=== PATIENT | female | born 1990 | race Two or more races ===

== ENCOUNTER 2020-12-18 06:10 | Emergency (ER) | payer MEDICAID, SELFPAY ==
--- NOTE | ~2020-12-18 | CT_ITS ---
EXAMINATION: CT ABDOMEN AND PELVIS WITHOUT CONTRAST CLINICAL INFORMATION: Left flank pain COMPARISON: None TECHNIQUE: Multidetector volumetric imaging was performed from the superior aspect of the liver through the pubic symphysis. Sagittal and coronal reformatted images were obtained on the technologist's workstation. This CT examination was performed using dose optimization techniques as appropriate, variously including the following: *Automated exposure control *Adjustment of mA and/or kV according to patient size (this includes techniques or standardized protocols for targeted exams where dose is matched to indication/reason for exam; i.e. extremities or head) *Use of iterative reconstruction technique DLP: 422 mGy-cm FINDINGS: LUNG BASES: There is a 3 mm left subpleural nodule axial image 3/5. LIVER, GALLBLADDER, AND BILIARY TREE: The liver is normal in size, shape, and attenuation. No focal hepatic lesion or biliary ductal dilatation is present. The gallbladder is unremarkable with no evidence of radiopaque gallstones, gallbladder wall thickening, or obvious pericholecystic inflammatory changes. PANCREAS: Unremarkable. SPLEEN: Unremarkable. ADRENAL GLANDS: Unremarkable. KIDNEYS AND URETERS: The kidneys are normal in size, shape, and attenuation. There are several radiopaque densities likely phleboliths in the left lower pelvis. A small distal ureteral stone is hard to exclude due to prominent vessels stool in left ovary in the vicinity. There is minimal prominence of the distal ureter but the left kidney pelvis is normal caliber. No radiopaque calculi seen in the kidneys. BLADDER: Unremarkable. GASTROINTESTINAL TRACT: There is scattered stool and gas seen throughout the colon without distention. The appendix is not well visualized. The small bowel loops are normal caliber. The stomach is nondistended. ABDOMINAL WALL: No significant hernia is appreciated. LYMPH NODES: Normal. VASCULAR: Unremarkable. PELVIC VISCERA: The uterus is bulky and retroverted. The ovaries are symmetrical. No free fluid seen. OSSEOUS STRUCTURES: Unremarkable. CT/CT abdomen pelvis wo con IMPRESSION: Mild constipation. At least 3 radiopaque densities seen in the left pelvis. These are likely phleboliths. A small left distal ureteral stone cannot be excluded. There is minimal prominence of left distal ureter. However there is no hydronephrosis. The exam is limited due to retroverted bulky uterus, mid ovaries prominent vessels and mild constipation. Bulky retroverted uterus.
[2020-12-18 06:16] VITALS: BP 102/65; PULSE 85; RESP 18; TEMP 36.6; O2SAT 100; BMI 23.5
--- NOTE | 2020-12-18 06:35 | PC.NURSE ---
PT TO ED WITH C/O LOWER ABD PAIN MONIQUE ON LEFT SIDE. PT CHG INTO GOWN. PT ARRIVES ALERT, RESPIRATIONS EASY, N/L. SKIN W/D. IN ROOM FOR EVAL. IV PLACED TO LAC, LABS DRAWN TO LAB.
--- NOTE | 2020-12-18 06:38 | ED.ABDPAIN ---
HPI - Abdominal Pain General Chief Complaint: Abdominal Pain Stated Complaint: ABD PAIN/BACK PAIN Time Seen by Provider: 12/18/20 06:31 Source: patient Mode of arrival: ambulatory Limitations: no limitations History of Present Illness HPI narrative: Patient comes to emergency room complaining of left flank pain radiating towards the abdomen. Patient states it started around 02:00, sudden in onset, sharp sensation, intermittent. Patient states sometimes the right abdominal and flank side hurt. The left side hurts the most. Patient complaining of occasional vomiting, no diarrhea. Patient states the last night she was doing well. Reports no fever or chills, no COVID like symptoms. Patient denies hematuria MD elicited complaint: flank pain Related Data Allergies Allergy/AdvReac Type Severity Reaction Status Date / Time shrimp [SHRIMP] Allergy Intermediate SWELLING Unverified 06/13/20 16:47 amoxicillin [AMOXICILLIN] Allergy Unknown HIVES Unverified 06/13/20 16:47 Penicillins [PENICILLINS] Allergy Unknown HIVES Unverified 06/13/20 16:47 Review of Systems Review of Systems Constitutional : No Weight loss, No Fever, No Chills, No Night Sweats, No Fatigue, No Malaise ENT/Mouth : No Hearing loss, No Ear Pain, No Nasal Congestion, No Sinus Pain, No Hoarseness, No sore throat, No Rhinorrhea, No Swallowing Difficulty Eyes: No Eye Pain, No Swelling, No Redness, No Foreign Body, No Discharge, No Vision Changes Cardiovascular : No Chest Pain, No SOB, No Dyspnea on Exertion, No Orthopnea, No Edema, No Palpitations Respiratory : No Cough, No Sputum, No Wheezing, No Smoke Exposure, No Dyspnea Gastrointestinal : Complaining of nausea and vomiting, No Diarrhea, No Constipation, complaining of left-sided flank pain radiating towards the left lower quadrant and left inguinal area, also complaining of mild to moderate right lower quadrant pain, but not as much as the left side. No Hematochezia, No Melena Genitourinary : no irregular bleeding, No Dysuria, No Urinary Frequency, No Hematuria, No Urinary Incontinence, No Urgency, No Flank Pain, No Urinary Flow Changes, No Hesitancy Musculoskeletal : No joint pain, No Myalgias, No Joint Swelling Skin : No Skin Lesions, No rash Neuro : No Weakness, No Numbness, No Paresthesias, No Loss of Consciousness, No Dizziness, No Headache Psych : No Anxiety/Panic, No Depression, No SI/HI/AH/VH, No Social Issues, Heme/Lymph: No Bruising, No Bleeding,No Lymphadenopathy Endocrine : No Polyuria, No Polydipsia, No Temperature Intolerance Physical Exam Vital Signs: Vital Signs: Last Vital Signs Temp 97.8 F 12/18/20 06:16 Pulse 85 12/18/20 06:16 Resp 18 12/18/20 06:16 BP 102/65 12/18/20 06:16 Pulse Ox 100 12/18/20 06:16 Body Mass Index 23.5 Appearance: Alert. Oriented X3. No acute distress. Eyes: Pupils equal, round and reactive to light. ENT: Pharynx normal. Neck: Normal inspection. Neck supple. No lymph nodes noted. No crepitus CVS: Normal heart rate and rhythm. Pulses normal. Normal S1 and S2 Respiratory: No respiratory distress. Breath sounds normal. No Wheezing. No rales Abdomen: Bilateral CVA tenderness, bilateral lower quadrant tenderness, worse in the left lower quadrant and left flank Skin: Skin warm and dry. Normal skin color. Normal skin turgor. Extremities: No lower extremity edema. No lower extremity edema. No Lacerations. No Rash Neuro: Oriented X 3. No motor deficit. No sensory deficit. Moving all extermities. No slurred speech. Course Course Course Narrative: Patient's labs pending, and CT scan. Sign-out given to Dr. Boo [facility] - Abdominal Pain Lab Data Result diagrams: 12/18/20 06:46 12/18/20 06:46 Labs: Lab Results 12/18/20 12/18/20 12/18/20 Range/Units 06:46 06:46 06:46 WBC 11.2 H (4.8-10.8) X10*3/uL RBC 3.87 L (4.20-5.50) X10*6/uL Hgb 11.8 L (12.0-16.0) g/dl Hct 35.7 L (37-47) % MCV 92.2 (80-98) fL MCH 30.5 (27.0-33.0) pg MCHC 33.1 (31.0-35.0) g/dl RDW 12.7 (11.0-16.0) % Plt Count 202 (160-400) X10*3/uL MPV 10.0 (9.4-12.3) fL Immature Gran % (Auto) 0.3 (0.0-0.4) % Neut % (Auto) 85.2 H (45-73) % Lymph % (Auto) 9.0 L (20-40) % [place] % (Auto) 5.3 (2-11) % Eos % (Auto) 0.1 (0-4) % Baso % (Auto) 0.1 (0-2) % Lymph # (Auto) 1.0 L (1.2-4.9) X10*3/uL [place] # (Auto) 0.6 (0.1-1.2) X10*3/uL Eos # (Auto) 0.0 (0.0-0.4) X10*3/uL Baso # (Auto) 0.0 (0.0-0.2) X10*3/uL Abs Immat Gran (auto) 0.03 (0.00-0.03) X10*3/uL Absolute Neuts (auto) 9.6 H (2.0-8.3) X10*3/uL Absolute Nucleated RBC 0.000 (0.0-0.012) X10*3/uL Nucleated RBC % (auto) 0.0 (0.0-0.2) /100WBC Sodium 138 (135-145) mmol/L Potassium 3.7 (3.3-5.1) mmol/L Chloride 104 (96-108) mmol/L Carbon Dioxide 23 (22-29) mmol/L Anion Gap 15 (12-20) BUN 21 H (9-16) mg/dL Creatinine 0.70 (0.5-1.4) mg/dL Estim Creat Clear Calc 103.3 Estimated GFR > 60 Random Glucose 121 H (60-115) mg/dL Calcium 9.1 (8.4-10.2) mg/dL Total Bilirubin 0.3 (0.0-1.0) mg/dL Direct Bilirubin 0.2 (0.0-0.5) mg/dL AST 15 (5-31) U/L ALT 10 (0-31) U/L Alkaline Phosphatase 58 (39-117) U/L Total Protein 7.1 (6.5-8.0) g/dL Albumin 4.4 (3.5-5.0) g/dL Lipase 27 (8-78) U/L Urine Color YELLOW Urine Appearance HAZY Urine pH 6.5 (5.0-8.0) Ur Specific [place] 1.020 (1.005-1.025) Urine Protein NEG (NEG-TRACE) MG/DL Urine Glucose (UA) NEG (NEG) MG/DL Urine Ketones 15 (NEG) MG/DL Urine Blood 2+ H (NEG) Urine Nitrite NEG (NEG) Ur Leukocyte Esterase NEG (NEG) Urine RBC 1-4 (0) /HPF Urine WBC 0-2 (0-4) /HPF Ur Squamous Epith Cells 1+ /LPF Urine Bacteria NONE /LPF Urine Mucus 1+ /LPF Urine Test (NEGATIVE) 12/18/20 Range/Units 06:46 WBC (4.8-10.8) X10*3/uL RBC (4.20-5.50) X10*6/uL Hgb (12.0-16.0) g/dl Hct (37-47) % MCV (80-98) fL MCH (27.0-33.0) pg MCHC (31.0-35.0) g/dl RDW (11.0-16.0) % Plt Count (160-400) X10*3/uL MPV (9.4-12.3) fL Immature Gran % (Auto) (0.0-0.4) % Neut % (Auto) (45-73) % Lymph % (Auto) (20-40) % [place] % (Auto) (2-11) % Eos % (Auto) (0-4) % Baso % (Auto) (0-2) % Lymph # (Auto) (1.2-4.9) X10*3/uL [place] # (Auto) (0.1-1.2) X10*3/uL Eos # (Auto) (0.0-0.4) X10*3/uL Baso # (Auto) (0.0-0.2) X10*3/uL Abs Immat Gran (auto) (0.00-0.03) X10*3/uL Absolute Neuts (auto) (2.0-8.3) X10*3/uL Absolute Nucleated RBC (0.0-0.012) X10*3/uL Nucleated RBC % (auto) (0.0-0.2) /100WBC Sodium (135-145) mmol/L Potassium (3.3-5.1) mmol/L Chloride (96-108) mmol/L Carbon Dioxide (22-29) mmol/L Anion Gap (12-20) BUN (9-16) mg/dL Creatinine (0.5-1.4) mg/dL Estim Creat Clear Calc Estimated GFR Random Glucose (60-115) mg/dL Calcium (8.4-10.2) mg/dL Total Bilirubin (0.0-1.0) mg/dL Direct Bilirubin (0.0-0.5) mg/dL AST (5-31) U/L ALT (0-31) U/L Alkaline Phosphatase (39-117) U/L Total Protein (6.5-8.0) g/dL Albumin (3.5-5.0) g/dL Lipase (8-78) U/L Urine Color Urine Appearance Urine pH (5.0-8.0) Ur Specific [place] (1.005-1.025) Urine Protein (NEG-TRACE) MG/DL Urine Glucose (UA) (NEG) MG/DL Urine Ketones (NEG) MG/DL Urine Blood (NEG) Urine Nitrite (NEG) Ur Leukocyte Esterase (NEG) Urine RBC (0) /HPF Urine WBC (0-4) /HPF Ur Squamous Epith Cells /LPF Urine Bacteria /LPF Urine Mucus /LPF Urine Test NEGATIVE (NEGATIVE) [facility] Social History Social History Advance Directives: No Advance Directives Information Provided: No
[2020-12-18] MEDS: ondansetron HCL 4 MG/2 ML VIAL IVPUSH (06:41)
[2020-12-18] MEDS: Ketorolac Tromethamine 30 MG/ML VIAL IVPUSH (06:41)
[2020-12-18] MEDS: 0.9 % Sodium Chloride 1,000 ML 999 ML IVCONT (06:43)
--- NOTE | 2020-12-18 06:44 | PC.NURSE ---
PT RATING LOWER ABD PAIN 10/10. PT MEDICATED PER EMAR FOR PAIN AND NAUSEA.
--- NOTE | 2020-12-18 06:49 | PC.NURSE ---
PT UP TO RESTROOM FOR URINE SAMPLE.
[2020-12-18 06:51] LABS: MANUAL DIFF FLAG NO
[2020-12-18 06:53] LABS: Basophils Percent Auto 0.1 % (0-2); Eosinophils Percent Auto 0.1 % (0-4); Hematocrit 35.7 % (37-47); Hemoglobin 11.8 g/dl (12.0-16.0); Imm Gran Abs Auto 0.03 X10*3/uL (0.00-0.03); Imm Gran Pct Auto 0.3 % (0.0-0.4); Mean Corpuscular HGB Conc 33.1 g/dl (31.0-35.0); Mean Corpuscular Hemoglobin 30.5 pg (27.0-33.0); Mean Corpuscular Volume 92.2 fL (80-98); Monocytes Absolute Auto 0.6 X10*3/uL (0.1-1.2); Monocytes Percent Auto 5.3 % (2-11); Neutrophils Absolute Auto 9.6 X10*3/uL (2.0-8.3); Neutrophils Percent Auto 85.2 % (45-73); Platelet Count 202 X10*3/uL (160-400); Red Blood Count 3.87 X10*6/uL (4.20-5.50); Red Cell Distribution Width 12.7 % (11.0-16.0); White Blood Count 11.2 X10*3/uL (4.8-10.8)
[2020-12-18 07:06] LABS: Glucose Urine UA NEG (NEG); Leukocyte Esterase Urine NEG (NEG); Nitrite Urine NEG (NEG); PH 6.5 (5.0-8.0); Urine Blood 2+ (NEG); Urine Ketones 15 MG/DL (NEG); Urine Protein NEG (NEG-TRACE)
[2020-12-18 07:09] LABS: Color Urine YELLOW; UPreg QC Valid YES; Urine Pregnancy NEGATIVE (NEGATIVE)
[2020-12-18 07:10] LABS: Appearance Urine HAZY
[2020-12-18 07:14] LABS: Mucus Urine 1+ /LPF; Squamous Epithelial Cell Urine 1+ /LPF; WBC Urine 0-2 /HPF (0-4)
[2020-12-18 07:18] LABS: Alanine Aminotransferase 10 U/L (0-31); Albumin Level 4.4 g/dL (3.5-5.0); Alkaline Phosphatase 58 U/L (39-117); Anion Gap 15 (12-20); Aspartate Amino Transferase 15 U/L (5-31); Bilirubin Direct 0.2 mg/dL (0.0-0.5); Bilirubin Total 0.3 mg/dL (0.0-1.0); Blood Urea Nitrogen 21 mg/dL (9-16); Calcium 9.1 mg/dL (8.4-10.2); Carbon Dioxide 23 mmol/L (22-29); Chloride 104 mmol/L (96-108); Creatinine Clr Calc Pharmacy 103.3; Estimated Glomerular Filt Rate > 60; Glucose Random 121 mg/dL (60-115); Lipase 27 U/L (8-78); Potassium 3.7 mmol/L (3.3-5.1); Sodium 138 mmol/L (135-145); Total Protein 7.1 g/dL (6.5-8.0)
[2020-12-18] MEDS: Ibuprofen 400 MG TABLET PO (09:42)
[2020-12-18 10:12] VITALS: BP 112/69; PULSE 77; RESP 18; TEMP 36.6; O2SAT 98
== END 2020-12-18 10:16 | disposition home or self-care (01) ==
PROVIDERS: Emergency Provider Emergency Medicine
DX: R10.9 Unspecified abdominal pain (principal); M54.5 Low back pain
CPT/HCPCS: 36415; 74176; 80048; 80076; 81001; 81003; 81025; 83690; 85025; 96365; 96375; 99283; 99284; J1885; J2405

== ENCOUNTER 2020-12-19 21:12 | Emergency (ER) | payer MEDICAID, SELFPAY ==
--- NOTE | ~2020-12-19 | CT_ITS ---
EXAMINATION: CT ABDOMEN AND PELVIS WITH CONTRAST CLINICAL INFORMATION: Right lower quadrant pain. Yesterday's CT exam was performed for left-sided flank pain COMPARISON: CT abdomen pelvis yesterday TECHNIQUE: Multidetector volumetric images were obtained from the superior aspect of the liver through the pubic symphysis following administration of 75 mL of Omnipaque 350 intravenous contrast. Sagittal and coronal reformatted images were obtained on the technologist's workstation. Oral contrast: No This CT examination was performed using dose optimization techniques as appropriate, variously including the following: *Automated exposure control *Adjustment of mA and/or kV according to patient size (this includes techniques or standardized protocols for targeted exams where dose is matched to indication/reason for exam; i.e. extremities or head) *Use of iterative reconstruction technique DLP: 409 mGy-cm FINDINGS: LUNG BASES: The visualized lung bases are unremarkable. Again seen is a tiny 3 mm left lower lobe subpleural nodule (4:55). LIVER, GALLBLADDER, AND BILIARY TREE: The liver is normal in size, shape, and attenuation. No focal hepatic lesion or biliary ductal dilatation is present. The gallbladder is unremarkable with no evidence of radiopaque gallstones, gallbladder wall thickening, or obvious pericholecystic inflammatory changes. PANCREAS: Unremarkable. SPLEEN: Unremarkable. ADRENAL GLANDS: Unremarkable. KIDNEYS AND URETERS: The kidneys are normal in size, shape, and attenuation. No hydronephrosis, hydroureter, or calculi seen. No perinephric stranding. BLADDER: Unremarkable. GASTROINTESTINAL TRACT: The small and large bowel are unremarkable. The appendix is unremarkable. ABDOMINAL WALL: No significant hernia is appreciated. LYMPH NODES: No retroperitoneal lymphadenopathy is detected VASCULAR: Unremarkable. PELVIC VISCERA: Phleboliths are noted in the pelvis. Retroverted uterus is present. An abnormal adnexal mass or free intraperitoneal fluid is not seen. OSSEOUS STRUCTURES: Unremarkable. CT/CT abdomen pelvis w con IMPRESSION: 1. A cause for the right lower quadrant pain is not found. The appendix is normal. No renal calculi are seen. 2. A cause for his yesterday's left flank pain is not seen. I do not believe that the calcifications in the pelvis are distal ureteral stones.
[2020-12-19 22:38] VITALS: BP 133/95; PULSE 70; RESP 16; TEMP 36.9; O2SAT 99; BMI 41.1
--- NOTE | 2020-12-19 22:44 | ED.ABDPAIN ---
HPI - Abdominal Pain General Chief Complaint: Abdominal Pain Stated Complaint: Abdominal pain Time Seen by Provider: 12/19/20 22:43 Source: patient Mode of arrival: ambulatory Limitations: no limitations History of Present Illness HPI narrative: Patient no significant past medical history was seen here yesterday for diffuse abdominal pain which started 24 hours prior to arrival patient woke up at 02:00 with mid abdominal pain with nausea was seen here CT scan was done without contrast which showed possible passed stone unable to see appendix white count were slightly elevated patient went home all day patient was complaining of pain which is getting worse now is more localized in the lower abdomen specially the right side associated with nausea and poor appetite pain get worse when she walks or eat something or stands Related Data Allergies Allergy/AdvReac Type Severity Reaction Status Date / Time shrimp [SHRIMP] Allergy Intermediate SWELLING Unverified 06/13/20 16:47 amoxicillin [AMOXICILLIN] Allergy Unknown HIVES Unverified 06/13/20 16:47 Penicillins [PENICILLINS] Allergy Unknown HIVES Unverified 06/13/20 16:47 Review of Systems Review of Systems Constitutional : No Weight loss, No Fever, No Chills ENT/Mouth : No sore throat, No Rhinorrhea Eyes: No Eye Pain, No Swelling Cardiovascular : No Chest Pain, no palpitations Respiratory : No Cough, No Sputum, no shortness of breath Gastrointestinal : +Nausea, + Vomiting, No Diarrhea, + abdominal Pain, no black stools Genitourinary : No Dysuria, No Urinary Frequency Musculoskeletal : No joint pain, No Myalgias, No Joint Swelling Skin : No Skin Lesions, No rash Neuro : No Weakness, No Numbness, No Dizziness, No Headache Psych : No Anxiety/Panic, No Depression Heme/Lymph: No Bruising, No Lymphadenopathy Endocrine : No Polyuria, No Polydipsia All other systems reviewed and are negative Physical Exam Vital Signs: Vital Signs: Last Vital Signs Temp 98.4 F 12/19/20 22:38 Pulse 70 12/19/20 22:38 Resp 18 12/19/20 23:29 BP 133/95 H 12/19/20 22:38 Pulse Ox 99 12/19/20 22:38 Body Mass Index 41.1 Appearance: Alert. Oriented X3. Mild distress. Eyes: Pupils equal, round and reactive to light. ENT: Pharynx normal. Neck: Normal inspection. Neck supple. CVS: Normal heart rate and rhythm. Pulses normal. Respiratory: No respiratory distress. Breath sounds normal. Abdomen: Soft deep tenderness and guarding right lower quadrant no rebound tenderness Bowel sounds are present, no mass palpable, no CVA tenderness Skin: Skin warm and dry. Normal skin color. Normal skin turgor. Extremities: No lower extremity edema. Neuro: Oriented X 3. No motor deficit. No sensory deficit. MDM - Abdominal Pain MDM Narrative Medical decision making narrative: Patient with lower abdominal pain previous CT scan was negative will do CT scan with IV contrast to rule out appendicitis 1am: Patient's CT abdomen is negative for any acute pathology negative for appendicitis no ureteric stone, lab stable patient feeling better now will discharge her home Differential Diagnosis Differential diagnosis: Likely acute appendicitis and calculus of kidney Medical Records Attestation: I reviewed the patient's medical records. Lab Data Attestation: I reviewed the patient's lab results. Result diagrams: 12/19/20 23:01 12/19/20 23:01 Labs: Lab Results 12/19/20 12/19/20 12/19/20 Range/Units 22:57 23:01 23:01 WBC 6.3 (4.8-10.8) X10*3/uL RBC 3.58 L (4.20-5.50) X10*6/uL Hgb 10.9 L (12.0-16.0) g/dl Hct 33.2 L (37-47) % MCV 92.7 (80-98) fL MCH 30.4 (27.0-33.0) pg MCHC 32.8 (31.0-35.0) g/dl RDW 12.9 (11.0-16.0) % Plt Count 201 (160-400) X10*3/uL MPV 10.1 (9.4-12.3) fL Immature Gran % (Auto) 0.2 (0.0-0.4) % Neut % (Auto) 55.6 (45-73) % Lymph % (Auto) 37.6 (20-40) % [place] % (Auto) 5.7 (2-11) % Eos % (Auto) 0.6 (0-4) % Baso % (Auto) 0.3 (0-2) % Lymph # (Auto) 2.4 (1.2-4.9) X10*3/uL [place] # (Auto) 0.4 (0.1-1.2) X10*3/uL Eos # (Auto) 0.0 (0.0-0.4) X10*3/uL Baso # (Auto) 0.0 (0.0-0.2) X10*3/uL Abs Immat Gran (auto) 0.01 (0.00-0.03) X10*3/uL Absolute Neuts (auto) 3.5 (2.0-8.3) X10*3/uL Absolute Nucleated RBC 0.000 (0.0-0.012) X10*3/uL Nucleated RBC % (auto) 0.0 (0.0-0.2) /100WBC PT (10.8-13.0) SEC INR (0.9-1.1) Sodium 141 (135-145) mmol/L Potassium 3.9 (3.3-5.1) mmol/L Chloride 106 (96-108) mmol/L Carbon Dioxide 24 (22-29) mmol/L Anion Gap 15 (12-20) BUN 16 (9-16) mg/dL Creatinine 0.73 (0.5-1.4) mg/dL Estim Creat Clear Calc 63.8 Estimated GFR > 60 Random Glucose 88 (60-115) mg/dL Calcium 8.8 (8.4-10.2) mg/dL COVID-19 (LINDA) Negative (Negative) COVID-19 Clin Com See Note 12/19/20 Range/Units 23:01 WBC (4.8-10.8) X10*3/uL RBC (4.20-5.50) X10*6/uL Hgb (12.0-16.0) g/dl Hct (37-47) % MCV (80-98) fL MCH (27.0-33.0) pg MCHC (31.0-35.0) g/dl RDW (11.0-16.0) % Plt Count (160-400) X10*3/uL MPV (9.4-12.3) fL Immature Gran % (Auto) (0.0-0.4) % Neut % (Auto) (45-73) % Lymph % (Auto) (20-40) % [place] % (Auto) (2-11) % Eos % (Auto) (0-4) % Baso % (Auto) (0-2) % Lymph # (Auto) (1.2-4.9) X10*3/uL [place] # (Auto) (0.1-1.2) X10*3/uL Eos # (Auto) (0.0-0.4) X10*3/uL Baso # (Auto) (0.0-0.2) X10*3/uL Abs Immat Gran (auto) (0.00-0.03) X10*3/uL Absolute Neuts (auto) (2.0-8.3) X10*3/uL Absolute Nucleated RBC (0.0-0.012) X10*3/uL Nucleated RBC % (auto) (0.0-0.2) /100WBC PT 12.7 (10.8-13.0) SEC INR 1.1 (0.9-1.1) Sodium (135-145) mmol/L Potassium (3.3-5.1) mmol/L Chloride (96-108) mmol/L Carbon Dioxide (22-29) mmol/L Anion Gap (12-20) BUN (9-16) mg/dL Creatinine (0.5-1.4) mg/dL Estim Creat Clear Calc Estimated GFR Random Glucose (60-115) mg/dL Calcium (8.4-10.2) mg/dL COVID-19 (LINDA) (Negative) COVID-19 Clin Com [facility] Social History Social History Alcohol intake: never Smoking Status: Current every day smoker Use of substances other than those prescribed or required for medical reasons: No Advance Directives: No Advance Directives Information Provided: Yes
[2020-12-19 23:10] LABS: MANUAL DIFF FLAG NO
[2020-12-19 23:11] LABS: Basophils Percent Auto 0.3 % (0-2); Eosinophils Percent Auto 0.6 % (0-4); Hematocrit 33.2 % (37-47); Hemoglobin 10.9 g/dl (12.0-16.0); Imm Gran Abs Auto 0.01 X10*3/uL (0.00-0.03); Imm Gran Pct Auto 0.2 % (0.0-0.4); Lymphocytes Absolute Auto 2.4 X10*3/uL (1.2-4.9); Lymphocytes Percent Auto 37.6 % (20-40); Mean Corpuscular HGB Conc 32.8 g/dl (31.0-35.0); Mean Corpuscular Hemoglobin 30.4 pg (27.0-33.0); Mean Corpuscular Volume 92.7 fL (80-98); Mean Platelet Volume 10.1 fL (9.4-12.3); Monocytes Absolute Auto 0.4 X10*3/uL (0.1-1.2); Monocytes Percent Auto 5.7 % (2-11); Neutrophils Absolute Auto 3.5 X10*3/uL (2.0-8.3); Neutrophils Percent Auto 55.6 % (45-73); Platelet Count 201 X10*3/uL (160-400); Red Blood Count 3.58 X10*6/uL (4.20-5.50); Red Cell Distribution Width 12.9 % (11.0-16.0); White Blood Count 6.3 X10*3/uL (4.8-10.8)
[2020-12-19 23:28] LABS: COVID-19 Test Negative (Negative); IDNOW Serial# 9DD0AD1C
[2020-12-19] MEDS: ondansetron HCL 4 MG/2 ML VIAL IVPUSH (23:28)
[2020-12-19 23:29] VITALS: RESP 18
[2020-12-19] MEDS: 0.9 % Sodium Chloride 1,000 ML 999 ML IVCONT (23:29)
[2020-12-19] MEDS: Morphine Sulfate 4 MG/ML CARTRIDGE IVPUSH (23:29)
[2020-12-19 23:39] LABS: Anion Gap 15 (12-20); Blood Urea Nitrogen 16 mg/dL (9-16); Calcium 8.8 mg/dL (8.4-10.2); Carbon Dioxide 24 mmol/L (22-29); Chloride 106 mmol/L (96-108); Creatinine Clr Calc Pharmacy 63.8; Estimated Glomerular Filt Rate > 60; Glucose Random 88 mg/dL (60-115); Potassium 3.9 mmol/L (3.3-5.1); Sodium 141 mmol/L (135-145)
[2020-12-19 23:45] LABS: INTERNATIONAL NORM RATIO 1.1 (0.9-1.1); Prothrombin Time 12.7 SEC (10.8-13.0)
[2020-12-19] MEDS: iohexoL 350 MG/ML 75 ML INFUS..BTL IV (23:51)
[2020-12-20] VITALS: BP 109/62; PULSE 76; RESP 16; O2SAT 98
== END 2020-12-20 01:55 | disposition home or self-care (01) ==
PROVIDERS: Emergency Provider Internal Medicine; PCP Nurse Practitioner Family
DX: R10.31 Right lower quadrant pain (principal); Z20.822 Contact with and (suspected) exposure to COVID-19; R11.2 Nausea with vomiting, unspecified; F17.200 Nicotine dependence, unspecified, uncomplicated
CPT/HCPCS: 36415; 74177; 80048; 85025; 85610; 87635; 96361; 96374; 96375; 99284; J2270; J2405; Q9967

== ENCOUNTER 2021-03-11 21:18 | Emergency (ER) | payer MEDICAID, SELFPAY | END 2021-03-11 21:45 | disposition left against medical advice (07) | LOC: HO.ED 21:44 | PROVIDERS: Emergency Provider Internal Medicine | DX: Z20.822 Contact with and (suspected) exposure to COVID-19 (principal) ==

== ENCOUNTER 2021-03-12 15:49 | Outpatient (REF) | payer MEDICAID, SELFPAY | END 2021-03-12 15:50 | disposition home or self-care (01) | LOC: HO.LAB 15:49 | PROVIDERS: Visit Provider Internal Medicine | DX: Z20.822 Contact with and (suspected) exposure to COVID-19 (principal) | CPT/HCPCS: C9803; U0003; U0005 ==

== ENCOUNTER 2021-06-20 14:15 | Outpatient (REF) | payer MEDICAID, SELFPAY | END 2021-06-20 14:16 | disposition home or self-care (01) | LOC: HO.LAB 14:15 | PROVIDERS: Visit Provider Internal Medicine | DX: Z20.822 Contact with and (suspected) exposure to COVID-19 (principal) | CPT/HCPCS: C9803; U0003; U0005 ==

== ENCOUNTER 2022-04-07 10:50 | Outpatient (REF) | payer MEDICAID, SELFPAY | END 2022-04-07 10:51 | disposition home or self-care (01) | LOC: HO.HOSX 10:50 | PROVIDERS: Visit Provider Orthopaedic Surgery | DX: Z13.89 Encounter for screening for other disorder (principal) ==

== ENCOUNTER 2022-08-17 17:31 | Emergency (ER) | payer MEDICAID, SELFPAY ==
--- NOTE | ~2022-08-17 | XR_ITS ---
EXAMINATION: XR CHEST CLINICAL INFORMATION: Weakness. COMPARISON: None TECHNIQUE: 2 views of the chest were obtained. FINDINGS: No significant abnormality is noted involving the heart, lungs, mediastinum, bony thorax or soft tissues. XR/XR chest 2V IMPRESSION: Unremarkable chest examination.
[2022-08-17 17:37] VITALS: BP 114/71; PULSE 98; RESP 18; TEMP 36.7; O2SAT 100; BMI 21.2
--- NOTE | 2022-08-17 17:38 | ECG_ITS ---
Test Reason : dizziness Blood Pressure : / mmHG Vent. Rate : 075 BPM Atrial Rate : 075 BPM P-R Int : 158 ms QRS Dur : 106 ms QT Int : 380 ms P-R-T Axes : 052 039 028 degrees QTc Int : 424 ms Normal sinus rhythm Incomplete right bundle branch block Borderline ECG When compared with ECG of 28-JAN-2019 12:19, No significant change was found Referred By: Varun Ortiz Electronically Signed By:TOBY PUENTE MD
--- NOTE | 2022-08-17 17:41 | ED_ITS ---
HPI - Dizziness General Chief Complaint: General Medical <Varun Ortiz DO - Last Filed: 08/17/22 17:46> Stated Complaint: dizzines,blurred vision,chest and arm pain <Varun Ortiz DO - Last Filed: 08/17/22 17:46> Time Seen by Provider: 08/17/22 18:05 <Varun Ortiz DO - Last Filed: 08/17/22 17:46> Source: patient <ROSEMARIE Troncoso - Last Filed: 08/17/22 21:02> Mode of arrival: ambulatory <ROSEMARIE Troncoso - Last Filed: 08/17/22 21:02> Limitations: no limitations <ROSMEARIE Troncoso Last Filed: 08/17/22 21:02> History of Present Illness HPI Narrative: 31 yo female presents to the ER for evaluation of multiple complaints today. She reports for the last 3 weeks she has had recurrence and worsening episodes of lightheadedness and dizziness that occur happen at random times. She also reports intermittent episodes of chest pain, shortness of breath, palpitations, abdominal pain, nausea. She states she intermittently has numbness and pain in her hands and her legs. The pain in her legs has caused her to have to quit to a for jobs in the last year. She was worked up for lupus by her PCP and it was negative. She states the lightheadedness has become more frequent. She denies any dizziness or vertigo. It is not worse with position changes. She has been eating and drinking normally. She is not diabetic. She does admit to history of anxiety and has been taking her neighbors anxiety medications with some relief. <ROSEMARIE Troncoso - Last Filed: 08/17/22 21:02> MD elicited complaint: dizziness <ROSEMARIE Troncoso Last Filed: 08/17/22 21:02> Onset (ago): week(s) <ROSEMARIE Troncoso Last Filed: 08/17/22 21:02> Timing: gradual onset <ROSEMARIE Troncoso Last Filed: 08/17/22 21:02> Severity: moderate <ROSEMARIE Troncoso Last Filed: 08/17/22 21:02> Description: lightheadedness <ROSEMARIE Troncoso Last Filed: 08/17/22 21:02> Context: anxiety <ROSEMARIE Troncoso Last Filed: 08/17/22 21:02> History of similar symptoms: Yes <ROSEMARIE Troncoso Last Filed: 08/17/22 21:02> Exacerbating factors: nothing <ROSEMARIE Troncoso Last Filed: 08/17/22 21:02> Relieving factors: nothing <ROSEMARIE Troncoso Last Filed: 08/17/22 21:02> Associated symptoms: nausea, chest pain, shortness of breath, weakness and palpatations <ROSEMARIE Troncoso Last Filed: 08/17/22 21:02> Associated neuro symptoms: limb numbness <ROSEMARIE Troncoso Last Filed: 08/17/22 21:02> Related Data Home Medications: Previous Rx's Medication Instructions Recorded clindamycin HCl 300 mg capsule 300 mg PO Q6H 1 week #28 caps 08/17/22 ibuprofen 600 mg tablet 600 mg PO Q8H PRN fever or pain 08/17/22 #20 tabs <Varun Ortiz DO - Last Filed: 08/17/22 17:46> Allergies/Adverse Reactions: Allergies Allergy/AdvReac Type Severity Reaction Status Date / Time shrimp [SHRIMP] Allergy Intermediate SWELLING Unverified 06/13/20 16:47 amoxicillin [AMOXICILLIN] Allergy Unknown HIVES Unverified 06/13/20 16:47 Penicillins [PENICILLINS] Allergy Unknown HIVES Unverified 06/13/20 16:47 <Varun Ortiz DO - Last Filed: 08/17/22 17:46> Review of Systems Review of Systems: Constitutional: No Fever, No Chills ENT/Mouth: No sore throat, No Rhinorrhea, No Swallowing Difficulty Eyes: No Eye Pain, No Swelling, No Redness Cardiovascular: + Chest Pain, + SOB, No Orthopnea, No Edema Respiratory: No Cough, No Sputum, No Wheezing, No dyspnea Gastrointestinal: + Nausea, No Vomiting, No Diarrhea, +abdominal Pain, No Hematochezia, No Melena Genitourinary: No Dysuria, No Urinary Frequency, No Hematuria Musculoskeletal: No joint pain, No Myalgias Skin: No Skin Lesions, No rash Neuro: +Weakness, +Numbness, + Dizziness, +Headache Psych: + Anxiety/Panic, No Depression Heme/Lymph: No Bruising, No Lymphadenopathy Endocrine: No Polyuria, No Polydipsia <ROSEMARIE Troncoso - Last Filed: 08/17/22 21:02> [facility] Social History Social History: Social History Alcohol intake: never Advance Directives: No Advance Directives Information Provided: Yes <Varun Ortiz DO - Last Filed: 08/17/22 17:46> Physical Exam Vital Signs: Vital Signs: Last Vital Signs Temp 98.2 F 08/17/22 20:00 Pulse 69 08/17/22 20:00 Resp 16 08/17/22 20:00 BP 98/65 08/17/22 20:00 Pulse Ox 98 08/17/22 20:00 O2 Del Method 08/17/22 20:00 BMI result Body Mass Index 21.2 <Varun Ortiz DO - Last Filed: 08/17/22 17:46> Vital Signs: Last Vital Signs Temp 98.2 F 08/17/22 20:00 Pulse 69 08/17/22 20:00 Resp 16 08/17/22 20:00 BP 98/65 08/17/22 20:00 Pulse Ox 98 08/17/22 20:00 O2 Del Method 08/17/22 20:00 BMI result Body Mass Index 21.2 <ROSEMARIE Troncoso - Last Filed: 08/17/22 21:02> Appearance: Alert. Oriented X3. No acute distress. Eyes: Pupils equal, round and reactive to light. EOMI, no nystagmus. ENT: Pharynx normal. Neck: Normal inspection. Neck supple. CVS: Normal heart rate and rhythm. Pulses normal. Respiratory: No respiratory distress. Breath sounds normal. Abdomen: Flat, Soft and nontender. +BS x4. Pelvic deferred Skin: Skin warm and dry. Normal skin color. Normal skin turgor. No rashes. Extremities: No lower extremity edema. Neuro: Oriented X 3. No motor deficit. No sensory deficit. CN II-XII intact. Normal speech and cognition. Steady gait. Equal and symmetrical strength throughout. <ROSEMARIE Troncoso - Last Filed: 08/17/22 21:02> Course Course Course Narrative: 31 year old female presents to the ED with multiple complaints Patient seen in triage by me in a rapid screening exam she states for months she has had dizziness. She denies any falls denies chest pain cough fever no nausea or vomiting. She states she has seen her PCP and told everything is okay. She also has chronic pain issues and is unable to work due to pain in fingers. Review of systems: General:? Dizziness none right now Patient denies any fever chills recent illness or falls Musculoskeletal: Denies back pain or body aches or other injuries HEENT: denies headache, runny nose, ear pain Respiratory: denies shortness of breath, cough Cardiovascular: no chest pain or palpitations : denies dysuria, frequency Abdomen: nausea no vomiting denies abdominal pain Extremities: no swelling, no pain Skin: no diaphoresis? Review of Systems: Yes all other systems are reviewed and are negative Neurological exam: CN II- XII tested. Patient is alert and oriented to person place and time. Patient has no dysphagia or dysarthia, denies good vision in all four vision huerta no nystagmus on exam, good strength to upper and lower extremities with normal reflexes to brachioradialis, wrist, patella and achilles. Negative romberg, good finger to nose and heel to caldera.? General: Well-appearing well-nourished in no signs of distress HEENT: Normocephalic atraumatic Neck: No signs of JVD, no masses no tenderness or lymphadenopathy Cardiovascular: Regular rate and rhythm Respiratory: Clear to auscultation bilaterally Abdomen: Soft nontender no masses Extremities: Normal pedal pulses no signs of edema Skin: Dry warm no rashes Back: No tenderness full ROM? Patient seen in triage orders sent patient will have another provider give diagnosis interpret labs and ultimate disposition. <Varun Ortiz DO - Last Filed: 08/17/22 17:46> Reevaluation(s) Reevaluation #1: Lab workup was unremarkable. EKG unremarkable. Perc negative. Doubt PE. Treated with Ativan with improvement. No lightheadedness while in the emergency department. Symptoms most likely anxiety related. Will have her follow-up with her PCP. Advised to not take prescription medications that are not prescribed to her. She is asking for antibiotic for broken to ooze, left lower posterior molar. Area is tender with associated gingival swelling but no fluctuance. Will prescribe Augmentin and Motrin for pain control. She agrees to follow-up with the dentist. Stable for discharge. <ROSEMARIE Troncoso - Last Filed: 08/17/22 21:02> Medications Administered Discontinued Medications Generic Name Dose Route Start Last Admin Trade Name Freq PRN Reason Stop Dose Admin Lactated Ringer's 1,000 mls @ 999 mls/hr 08/17/22 18:30 08/17/22 20:52 Lr IV 08/17/22 19:30 Infused .Q1H1M WILLIAM Infusion Lorazepam 1 mg 08/17/22 18:08 08/17/22 18:46 Lorazepam 1 Mg Tablet PO 08/17/22 18:09 1 mg ONCE ONE Administration Ondansetron HCl 4 mg 08/17/22 18:25 08/17/22 18:46 Ondansetron Hcl 4 Mg/2 Ml Vial IVPUSH 08/17/22 18:26 4 mg ONCE ONE Administration <Varun Ortiz DO - Last Filed: 08/17/22 17:46> Medications Administered Discontinued Medications Generic Name Dose Route Start Last Admin Trade Name Freq PRN Reason Stop Dose Admin Lactated Ringer's 1,000 mls @ 999 mls/hr 08/17/22 18:30 08/17/22 20:52 Lr IV 08/17/22 19:30 Infused .Q1H1M WILLIAM Infusion Lorazepam 1 mg 08/17/22 18:08 08/17/22 18:46 Lorazepam 1 Mg Tablet PO 08/17/22 18:09 1 mg ONCE ONE Administration Ondansetron HCl 4 mg 08/17/22 18:25 08/17/22 18:46 Ondansetron Hcl 4 Mg/2 Ml Vial IVPUSH 08/17/22 18:26 4 mg ONCE ONE Administration <ROSEMARIE Troncoso - Last Filed: 08/17/22 21:02> MDM - Dizziness Medical Records Attestation: I reviewed the patient's medical records. <ROSEMARIE Troncoso - Last Filed: 08/17/22 21:02> Lab Data Attestation: I reviewed the patient's lab results. <ROESMARIE Troncoso - Last Filed: 08/17/22 21:02> Result diagrams: : 08/17/22 18:36 08/17/22 18:36 <Varun Ortiz, DO - Last Filed: 08/17/22 17:46> Labs: Lab Results 08/17/22 08/17/22 08/17/22 Range/Units 18:36 18:36 18:36 WBC 5.6 (4.8-10.8) X10*3/uL RBC 4.02 L (4.20-5.50) X10*6/uL Hgb 12.1 (12.0-16.0) g/dl Hct 36.9 L (37.0-47.0) % MCV 91.8 (80.0-98.0) fL MCH 30.1 (27.0-33.0) pg MCHC 32.8 (31.0-35.0) g/dl RDW 12.7 (11.0-16.0) % Plt Count 231 (160-400) X10*3/uL MPV 9.9 (9.4-12.3) fL Immature Gran % (Auto) 0.2 (0.0-0.4) % Neut % (Auto) 57.1 (45-73) % Lymph % (Auto) 34.6 (20-40) % [place] % (Auto) 6.5 (2-11) % Eos % (Auto) 1.1 (0-4) % Baso % (Auto) 0.5 (0-2) % Lymph # (Auto) 1.9 (1.2-4.9) X10*3/uL [place] # (Auto) 0.4 (0.1-1.2) X10*3/uL Eos # (Auto) 0.1 (0.0-0.4) X10*3/uL Baso # (Auto) 0.0 (0.0-0.2) X10*3/uL Abs Immat Gran (auto) 0.01 (0.00-0.03) X10*3/uL Absolute Neuts (auto) 3.2 (2.0-8.3) x10*3/uL Absolute Nucleated RBC 0.000 (0.0-0.012) X10*3/uL Nucleated RBC % (auto) 0.0 (0.0-0.2) /100WBC Sodium 140 (135-145) mmol/L Potassium 4.1 (3.3-5.1) mmol/L Chloride 103 (96-108) mmol/L Carbon Dioxide 27 (22-29) mmol/L Anion Gap 14 (12-20) BUN 11 (9-16) mg/dL Creatinine 0.78 (0.5-1.4) mg/dL Estim Creat Clear Calc 103.4 Estimated GFR > 60 Random Glucose 90 (60-115) mg/dL Calcium 9.8 D (8.4-10.2) mg/dL Total Bilirubin 0.2 (0.0-1.0) mg/dL Direct Bilirubin < 0.2 (0.0-0.5) mg/dL AST 33 H D (5-31) U/L ALT 41 H (0-31) U/L Alkaline Phosphatase 57 (39-117) U/L Troponin I High Sens < 3.5 (<3.5-17.0) ng/L Total Protein 7.5 (6.5-8.0) g/dL Albumin 4.5 (3.5-5.0) g/dL Lipase 26 (8-78) U/L Urine Color Urine Appearance Urine pH (5.0-9.0) Ur Specific [place] (1.005-1.025) Urine Protein (Neg-Trace) mg/dL Urine Glucose (UA) (Negative) mg/dL Urine Ketones (Negative) mg/dL Urine Blood (Negative) Urine Nitrite (Negative) Ur Leukocyte Esterase (Negative) Urine Test (NEGATIVE) 08/17/22 08/17/22 Range/Units 18:36 18:36 WBC (4.8-10.8) X10*3/uL RBC (4.20-5.50) X10*6/uL Hgb (12.0-16.0) g/dl Hct (37.0-47.0) % MCV (80.0-98.0) fL MCH (27.0-33.0) pg MCHC (31.0-35.0) g/dl RDW (11.0-16.0) % Plt Count (160-400) X10*3/uL MPV (9.4-12.3) fL Immature Gran % (Auto) (0.0-0.4) % Neut % (Auto) (45-73) % Lymph % (Auto) (20-40) % [place] % (Auto) (2-11) % Eos % (Auto) (0-4) % Baso % (Auto) (0-2) % Lymph # (Auto) (1.2-4.9) X10*3/uL [place] # (Auto) (0.1-1.2) X10*3/uL Eos # (Auto) (0.0-0.4) X10*3/uL Baso # (Auto) (0.0-0.2) X10*3/uL Abs Immat Gran (auto) (0.00-0.03) X10*3/uL Absolute Neuts (auto) (2.0-8.3) x10*3/uL Absolute Nucleated RBC (0.0-0.012) X10*3/uL Nucleated RBC % (auto) (0.0-0.2) /100WBC Sodium (135-145) mmol/L Potassium (3.3-5.1) mmol/L Chloride (96-108) mmol/L Carbon Dioxide (22-29) mmol/L Anion Gap (12-20) BUN (9-16) mg/dL Creatinine (0.5-1.4) mg/dL Estim Creat Clear Calc Estimated GFR Random Glucose (60-115) mg/dL Calcium (8.4-10.2) mg/dL Total Bilirubin (0.0-1.0) mg/dL Direct Bilirubin (0.0-0.5) mg/dL AST (5-31) U/L ALT (0-31) U/L Alkaline Phosphatase (39-117) U/L Troponin I High Sens (<3.5-17.0) ng/L Total Protein (6.5-8.0) g/dL Albumin (3.5-5.0) g/dL Lipase (8-78) U/L Urine Color Yellow Urine Appearance Clear Urine pH 6.5 (5.0-9.0) Ur Specific [place] 1.010 (1.005-1.025) Urine Protein Negative (Neg-Trace) mg/dL Urine Glucose (UA) Negative (Negative) mg/dL Urine Ketones Negative (Negative) mg/dL Urine Blood Negative (Negative) Urine Nitrite Negative (Negative) Ur Leukocyte Esterase Negative (Negative) Urine Test NEGATIVE (NEGATIVE) <Varun Ortiz, DO - Last Filed: 08/17/22 17:46> Lab Results 08/17/22 08/17/22 08/17/22 Range/Units 18:36 18:36 18:36 WBC 5.6 (4.8-10.8) X10*3/uL RBC 4.02 L (4.20-5.50) X10*6/uL Hgb 12.1 (12.0-16.0) g/dl Hct 36.9 L (37.0-47.0) % MCV 91.8 (80.0-98.0) fL MCH 30.1 (27.0-33.0) pg MCHC 32.8 (31.0-35.0) g/dl RDW 12.7 (11.0-16.0) % Plt Count 231 (160-400) X10*3/uL MPV 9.9 (9.4-12.3) fL Immature Gran % (Auto) 0.2 (0.0-0.4) % Neut % (Auto) 57.1 (45-73) % Lymph % (Auto) 34.6 (20-40) % [place] % (Auto) 6.5 (2-11) % Eos % (Auto) 1.1 (0-4) % Baso % (Auto) 0.5 (0-2) % Lymph # (Auto) 1.9 (1.2-4.9) X10*3/uL [place] # (Auto) 0.4 (0.1-1.2) X10*3/uL Eos # (Auto) 0.1 (0.0-0.4) X10*3/uL Baso # (Auto) 0.0 (0.0-0.2) X10*3/uL Abs Immat Gran (auto) 0.01 (0.00-0.03) X10*3/uL Absolute Neuts (auto) 3.2 (2.0-8.3) x10*3/uL Absolute Nucleated RBC 0.000 (0.0-0.012) X10*3/uL Nucleated RBC % (auto) 0.0 (0.0-0.2) /100WBC Sodium 140 (135-145) mmol/L Potassium 4.1 (3.3-5.1) mmol/L Chloride 103 (96-108) mmol/L Carbon Dioxide 27 (22-29) mmol/L Anion Gap 14 (12-20) BUN 11 (9-16) mg/dL Creatinine 0.78 (0.5-1.4) mg/dL Estim Creat Clear Calc 103.4 Estimated GFR > 60 Random Glucose 90 (60-115) mg/dL Calcium 9.8 D (8.4-10.2) mg/dL Total Bilirubin 0.2 (0.0-1.0) mg/dL Direct Bilirubin < 0.2 (0.0-0.5) mg/dL AST 33 H D (5-31) U/L ALT 41 H (0-31) U/L Alkaline Phosphatase 57 (39-117) U/L Troponin I High Sens < 3.5 (<3.5-17.0) ng/L Total Protein 7.5 (6.5-8.0) g/dL Albumin 4.5 (3.5-5.0) g/dL Lipase 26 (8-78) U/L Urine Color Urine Appearance Urine pH (5.0-9.0) Ur Specific [place] (1.005-1.025) Urine Protein (Neg-Trace) mg/dL Urine Glucose (UA) (Negative) mg/dL Urine Ketones (Negative) mg/dL Urine Blood (Negative) Urine Nitrite (Negative) Ur Leukocyte Esterase (Negative) Urine Test (NEGATIVE) 08/17/22 08/17/22 Range/Units 18:36 18:36 WBC (4.8-10.8) X10*3/uL RBC (4.20-5.50) X10*6/uL Hgb (12.0-16.0) g/dl Hct (37.0-47.0) % MCV (80.0-98.0) fL MCH (27.0-33.0) pg MCHC (31.0-35.0) g/dl RDW (11.0-16.0) % Plt Count (160-400) X10*3/uL MPV (9.4-12.3) fL Immature Gran % (Auto) (0.0-0.4) % Neut % (Auto) (45-73) % Lymph % (Auto) (20-40) % [place] % (Auto) (2-11) % Eos % (Auto) (0-4) % Baso % (Auto) (0-2) % Lymph # (Auto) (1.2-4.9) X10*3/uL [place] # (Auto) (0.1-1.2) X10*3/uL Eos # (Auto) (0.0-0.4) X10*3/uL Baso # (Auto) (0.0-0.2) X10*3/uL Abs Immat Gran (auto) (0.00-0.03) X10*3/uL Absolute Neuts (auto) (2.0-8.3) x10*3/uL Absolute Nucleated RBC (0.0-0.012) X10*3/uL Nucleated RBC % (auto) (0.0-0.2) /100WBC Sodium (135-145) mmol/L Potassium (3.3-5.1) mmol/L Chloride (96-108) mmol/L Carbon Dioxide (22-29) mmol/L Anion Gap (12-20) BUN (9-16) mg/dL Creatinine (0.5-1.4) mg/dL Estim Creat Clear Calc Estimated GFR Random Glucose (60-115) mg/dL Calcium (8.4-10.2) mg/dL Total Bilirubin (0.0-1.0) mg/dL Direct Bilirubin (0.0-0.5) mg/dL AST (5-31) U/L ALT (0-31) U/L Alkaline Phosphatase (39-117) U/L Troponin I High Sens (<3.5-17.0) ng/L Total Protein (6.5-8.0) g/dL Albumin (3.5-5.0) g/dL Lipase (8-78) U/L Urine Color Yellow Urine Appearance Clear Urine pH 6.5 (5.0-9.0) Ur Specific [place] 1.010 (1.005-1.025) Urine Protein Negative (Neg-Trace) mg/dL Urine Glucose (UA) Negative (Negative) mg/dL Urine Ketones Negative (Negative) mg/dL Urine Blood Negative (Negative) Urine Nitrite Negative (Negative) Ur Leukocyte Esterase Negative (Negative) Urine Test NEGATIVE (NEGATIVE) <ROSEMARIE Troncoso - Last Filed: 08/17/22 21:02> ECG Data Attestation: I personally reviewed and interpreted this ECG as follows: <ROSEMARIE Troncoso - Last Filed: 08/17/22 21:02> ECG interpretation date: 08/17/22 <ROSEMARIE Troncoso - Last Filed: 08/17/22 21:02> ECG interpretation time: 19:59 <ROSEMARIE Troncoso - Last Filed: 08/17/22 21:02> Interpretation: Normal sinus rhythm, ventricular rate 75 beats per minute, artifact present. No significant change from prior in January of 2019. Normal GA interva, no ST segment elevations or depressions. <ROSEMARIE Troncoso - Last Filed: 08/17/22 21:02> Discharge Plan Discharge Clinical Impression: Lightheadedness, Toothache <Varun Ortiz DO - Last Filed: 08/17/22 17:46> Patient Disposition: Home, Self-Care <Varun Ortiz DO - Last Filed: 08/17/22 17:46> Instructions: Lightheadedness (ED) <Varun Ortiz DO - Last Filed: 08/17/22 17:46> Additional Instructions: Your lab workup today was unremarkable. Your EKG was normal. There were no life-threatening causes of your symptoms found today. Recommend following up with your primary care doctor for further workup and evaluation. Take the prescribed antibiotic as directed and anti-inflammatory pain medication for dental pain. Follow-up with a dentist as soon as possible. If you develop new or worsening symptoms call 911 or come back to the ER for further evaluation. <Varun Ortiz DO - Last Filed: 08/17/22 17:46> Prescriptions: New clindamycin HCl 300 mg capsule 300 mg PO Q6H 7 Days Qty: 28 0RF ibuprofen 600 mg tablet 600 mg PO Q8H PRN (Reason: fever or pain) Qty: 20 0RF <Varun Ortiz DO - Last Filed: 08/17/22 17:46>
[2022-08-17 18:42] LABS: MANUAL DIFF FLAG NO
[2022-08-17 18:43] LABS: Basophils Percent Auto 0.5 % (0-2); Eosinophils Absolute Auto 0.1 X10*3/uL (0.0-0.4); Eosinophils Percent Auto 1.1 % (0-4); Hematocrit 36.9 % (37.0-47.0); Hemoglobin 12.1 g/dl (12.0-16.0); Imm Gran Abs Auto 0.01 X10*3/uL (0.00-0.03); Imm Gran Pct Auto 0.2 % (0.0-0.4); Lymphocytes Absolute Auto 1.9 X10*3/uL (1.2-4.9); Lymphocytes Percent Auto 34.6 % (20-40); Mean Corpuscular HGB Conc 32.8 g/dl (31.0-35.0); Mean Corpuscular Hemoglobin 30.1 pg (27.0-33.0); Mean Corpuscular Volume 91.8 fL (80.0-98.0); Mean Platelet Volume 9.9 fL (9.4-12.3); Monocytes Absolute Auto 0.4 X10*3/uL (0.1-1.2); Monocytes Percent Auto 6.5 % (2-11); Neutrophils Absolute Auto 3.2 x10*3/uL (2.0-8.3); Neutrophils Percent Auto 57.1 % (45-73); Platelet Count 231 X10*3/uL (160-400); Red Blood Count 4.02 X10*6/uL (4.20-5.50); Red Cell Distribution Width 12.7 % (11.0-16.0); White Blood Count 5.6 X10*3/uL (4.8-10.8)
[2022-08-17 18:45] LABS: Appearance Urine Clear; Color Urine Yellow; Glucose Urine UA Negative (Negative); Leukocyte Esterase Urine Negative (Negative); Nitrite Urine Negative (Negative); PH 6.5 (5.0-9.0); Urine Blood Negative (Negative); Urine Ketones Negative (Negative); Urine Protein Negative (Neg-Trace)
[2022-08-17 18:46] LABS: UPreg QC Valid YES; Urine Pregnancy NEGATIVE (NEGATIVE)
[2022-08-17] MEDS: LORazepam 1 MG TABLET PO (18:46)
[2022-08-17] MEDS: Lactated Ringers 1,000 ML 999 ML IV (18:46)
[2022-08-17] MEDS: ondansetron HCL 4 MG/2 ML VIAL IVPUSH (18:46)
[2022-08-17 18:51] VITALS: BP 111/72; PULSE 76
[2022-08-17 18:52] VITALS: BP 112/77; PULSE 70
[2022-08-17 18:54] VITALS: BP 113/83; PULSE 70
--- NOTE | 2022-08-17 19:04 | PC.NURSE ---
patient a/ox4 . miriamrla . heart rate regular at 67 beats per minute . lungs clear throughout . breathing even and unlabored . skin pink warm and dry . abdomen soft , positive bowel sounds . patient reports chest pain 6 out of 10 pain . patient currently on monitoring analyst at a normal sinus rhythm . IV placed in right A. C . Labs obtained and sent . Urine obtained and sent . Orthostatics vitals done and negative , Provider aware .Patient medicated with IVP zofran , P.O. Ativan and fluids started as ordered by provider . Patient aware of plan of care .
[2022-08-17 20:00] VITALS: BP 98/65; PULSE 69; RESP 16; TEMP 36.8; O2SAT 98
[2022-08-17 20:17] LABS: Alanine Aminotransferase 41 U/L (0-31); Albumin Level 4.5 g/dL (3.5-5.0); Alkaline Phosphatase 57 U/L (39-117); Anion Gap 14 (12-20); Aspartate Amino Transferase 33 U/L (5-31); Bilirubin Total 0.2 mg/dL (0.0-1.0); Blood Urea Nitrogen 11 mg/dL (9-16); Calcium 9.8 mg/dL (8.4-10.2); Carbon Dioxide 27 mmol/L (22-29); Chloride 103 mmol/L (96-108); Creatinine Clr Calc Pharmacy 103.4; Estimated Glomerular Filt Rate > 60; Glucose Random 90 mg/dL (60-115); Lipase 26 U/L (8-78); Potassium 4.1 mmol/L (3.3-5.1); Sodium 140 mmol/L (135-145); Total Protein 7.5 g/dL (6.5-8.0)
[2022-08-17 20:24] LABS: Troponin-I High Sensitivity < 3.5 ng/L (<3.5-17.0)
[2022-08-17 20:52] LABS: Bilirubin Direct < 0.2 mg/dL (0.0-0.5)
[2022-08-17 21:20] VITALS: BP 100/62; PULSE 74; RESP 16; TEMP 37.1; O2SAT 99
== END 2022-08-17 21:21 | disposition home or self-care (01) ==
PROVIDERS: Physician Assistant; Student in an Organized Health Care Education/Training Program; Emergency Provider Internal Medicine
DX: R42 Dizziness and giddiness (principal); K08.89 Other specified disorders of teeth and supporting structures; F41.9 Anxiety disorder, unspecified; Z79.899 Other long term (current) drug therapy
CPT/HCPCS: 36415; 71046; 80048; 80076; 81003; 81025; 83690; 84484; 85025; 93005; 96361; 96374; 99284; J2405

== ENCOUNTER 2022-09-14 15:23 | Emergency (ER) | payer MEDICAID, SELFPAY ==
--- NOTE | ~2022-09-14 | XR_ITS ---
EXAMINATION: XR CHEST CLINICAL INFORMATION: Chest pain. COMPARISON: None TECHNIQUE: 2 views of the chest were obtained. FINDINGS: No significant abnormality is noted involving the heart, lungs, mediastinum, bony thorax or soft tissues. XR/XR chest 2V IMPRESSION: Unremarkable chest examination.
[2022-09-14 15:27] VITALS: BP 116/86; PULSE 88; RESP 16; TEMP 36.8; O2SAT 99; BMI 22.3
--- NOTE | 2022-09-14 15:28 | ED.DIZZY ---
HPI - Dizziness General Chief Complaint: Dizziness Stated Complaint: dizziness,blurry vision,diarrhea Related Data Previous Rx's Medication Instructions Recorded clindamycin HCl 300 mg capsule 300 mg PO Q6H 1 week #28 caps 08/17/22 ibuprofen 600 mg tablet 600 mg PO Q8H PRN fever or pain 08/17/22 #20 tabs Allergies Allergy/AdvReac Type Severity Reaction Status Date / Time shrimp [SHRIMP] Allergy Intermediate SWELLING Unverified 06/13/20 16:47 amoxicillin [AMOXICILLIN] Allergy Unknown HIVES Unverified 06/13/20 16:47 Penicillins [PENICILLINS] Allergy Unknown HIVES Unverified 06/13/20 16:47 [facility] Social History Social History Alcohol intake: never Advance Directives: No Advance Directives Information Provided: No Physical Exam Vital Signs: Vital Signs: Last Vital Signs Temp 98.3 F 09/14/22 15:27 Pulse 88 09/14/22 15:27 Resp 16 09/14/22 15:27 BP 116/86 09/14/22 15:27 Pulse Ox 99 09/14/22 15:27 O2 Del Method 09/14/22 15:27 BMI result Body Mass Index 22.3 Course Course Course Narrative: RME: Patient is a 31-year-old female who presents emergency department for evaluation of Dizziness, nausea without vomiting, diarrhea, blurry vision. States she was recently seen here for similar symptoms with the dizziness. However the dizziness is occurring more frequently and lasting for longer periods. She is complaining about chest pain in addition to this which is also intermittent, denies shortness of breath or cough. Denies fevers chills, abdominal pain, urinary symptoms, possibility of . Denies any anticoagulants, coagulation disorders, history of DVT/PE. Plan: Labs, EKG, urinalysis, urine , chest x-ray Medical Decision Making Lab Data Result Diagrams: 09/14/22 16:49 09/14/22 16:49 Labs: Lab Results 09/14/22 09/14/22 09/14/22 Range/Units 16:49 16:49 16:49 WBC 6.2 (4.8-10.8) X10*3/uL RBC 3.74 L (4.20-5.50) X10*6/uL Hgb 11.4 L (12.0-16.0) g/dl Hct 34.1 L (37.0-47.0) % MCV 91.2 (80.0-98.0) fL MCH 30.5 (27.0-33.0) pg MCHC 33.4 (31.0-35.0) g/dl RDW 12.7 (11.0-16.0) % Plt Count 239 (160-400) X10*3/uL MPV 9.7 (9.4-12.3) fL Immature Gran % (Auto) 0.2 (0.0-0.4) % Neut % (Auto) 62.7 (45-73) % Lymph % (Auto) 30.0 (20-40) % [place] % (Auto) 5.8 (2-11) % Eos % (Auto) 0.8 (0-4) % Baso % (Auto) 0.5 (0-2) % Lymph # (Auto) 1.9 (1.2-4.9) X10*3/uL [place] # (Auto) 0.4 (0.1-1.2) X10*3/uL Eos # (Auto) 0.1 (0.0-0.4) X10*3/uL Baso # (Auto) 0.0 (0.0-0.2) X10*3/uL Abs Immat Gran (auto) 0.01 (0.00-0.03) X10*3/uL Absolute Neuts (auto) 3.9 (2.0-8.3) x10*3/uL Absolute Nucleated RBC 0.000 (0.0-0.012) X10*3/uL Nucleated RBC % (auto) 0.0 (0.0-0.2) /100WBC Sodium 141 (135-145) mmol/L Potassium 4.3 (3.3-5.1) mmol/L Chloride 107 (96-108) mmol/L Carbon Dioxide 27 (22-29) mmol/L Anion Gap 11 L (12-20) BUN 9 (9-16) mg/dL Creatinine 0.77 (0.5-1.4) mg/dL Estim Creat Clear Calc 93.1 Estimated GFR > 60 Random Glucose 113 (60-115) mg/dL Calcium 9.7 (8.4-10.2) mg/dL Total Bilirubin 0.4 (0.0-1.0) mg/dL AST 16 (5-31) U/L ALT 12 (0-31) U/L Alkaline Phosphatase 48 (39-117) U/L Troponin I High Sens < 3.5 (<3.5-17.0) ng/L Total Protein 7.2 (6.5-8.0) g/dL Albumin 4.5 (3.5-5.0) g/dL Urine Color Urine Appearance Urine pH (5.0-9.0) Ur Specific Andreas (1.005-1.025) Urine Protein (Neg-Trace) mg/dL Urine Glucose (UA) (Negative) mg/dL Urine Ketones (Negative) mg/dL Urine Blood (Negative) Urine Nitrite (Negative) Ur Leukocyte Esterase (Negative) Urine Test (NEGATIVE) COVID-19 (LINDA) (Negative) COVID-19 Clin Com Influenza Type A (LILY) (Negative) Influenza Type B (LILY) (Negative) Influenza A & B Note 09/14/22 09/14/22 09/14/22 Range/Units 16:49 16:49 16:54 WBC (4.8-10.8) X10*3/uL RBC (4.20-5.50) X10*6/uL Hgb (12.0-16.0) g/dl Hct (37.0-47.0) % MCV (80.0-98.0) fL MCH (27.0-33.0) pg MCHC (31.0-35.0) g/dl RDW (11.0-16.0) % Plt Count (160-400) X10*3/uL MPV (9.4-12.3) fL Immature Gran % (Auto) (0.0-0.4) % Neut % (Auto) (45-73) % Lymph % (Auto) (20-40) % [place] % (Auto) (2-11) % Eos % (Auto) (0-4) % Baso % (Auto) (0-2) % Lymph # (Auto) (1.2-4.9) X10*3/uL [place] # (Auto) (0.1-1.2) X10*3/uL Eos # (Auto) (0.0-0.4) X10*3/uL Baso # (Auto) (0.0-0.2) X10*3/uL Abs Immat Gran (auto) (0.00-0.03) X10*3/uL Absolute Neuts (auto) (2.0-8.3) x10*3/uL Absolute Nucleated RBC (0.0-0.012) X10*3/uL Nucleated RBC % (auto) (0.0-0.2) /100WBC Sodium (135-145) mmol/L Potassium (3.3-5.1) mmol/L Chloride (96-108) mmol/L Carbon Dioxide (22-29) mmol/L Anion Gap (12-20) BUN (9-16) mg/dL Creatinine (0.5-1.4) mg/dL Estim Creat Clear Calc Estimated GFR Random Glucose (60-115) mg/dL Calcium (8.4-10.2) mg/dL Total Bilirubin (0.0-1.0) mg/dL AST (5-31) U/L ALT (0-31) U/L Alkaline Phosphatase (39-117) U/L Troponin I High Sens (<3.5-17.0) ng/L Total Protein (6.5-8.0) g/dL Albumin (3.5-5.0) g/dL Urine Color Yellow Urine Appearance Clear Urine pH 7.5 (5.0-9.0) Ur Specific Andreas <= 1.005 (1.005-1.025) Urine Protein Negative (Neg-Trace) mg/dL Urine Glucose (UA) Negative (Negative) mg/dL Urine Ketones Negative (Negative) mg/dL Urine Blood Negative (Negative) Urine Nitrite Negative (Negative) Ur Leukocyte Esterase Negative (Negative) Urine Test (NEGATIVE) COVID-19 (LINDA) Negative (Negative) COVID-19 Clin Com See Note Influenza Type A (LILY) Negative (Negative) Influenza Type B (LILY) Positive A (Negative) Influenza A & B Note See Note 09/14/22 Range/Units 16:54 WBC (4.8-10.8) X10*3/uL RBC (4.20-5.50) X10*6/uL Hgb (12.0-16.0) g/dl Hct (37.0-47.0) % MCV (80.0-98.0) fL MCH (27.0-33.0) pg MCHC (31.0-35.0) g/dl RDW (11.0-16.0) % Plt Count (160-400) X10*3/uL MPV (9.4-12.3) fL Immature Gran % (Auto) (0.0-0.4) % Neut % (Auto) (45-73) % Lymph % (Auto) (20-40) % [place] % (Auto) (2-11) % Eos % (Auto) (0-4) % Baso % (Auto) (0-2) % Lymph # (Auto) (1.2-4.9) X10*3/uL [place] # (Auto) (0.1-1.2) X10*3/uL Eos # (Auto) (0.0-0.4) X10*3/uL Baso # (Auto) (0.0-0.2) X10*3/uL Abs Immat Gran (auto) (0.00-0.03) X10*3/uL Absolute Neuts (auto) (2.0-8.3) x10*3/uL Absolute Nucleated RBC (0.0-0.012) X10*3/uL Nucleated RBC % (auto) (0.0-0.2) /100WBC Sodium (135-145) mmol/L Potassium (3.3-5.1) mmol/L Chloride (96-108) mmol/L Carbon Dioxide (22-29) mmol/L Anion Gap (12-20) BUN (9-16) mg/dL Creatinine (0.5-1.4) mg/dL Estim Creat Clear Calc Estimated GFR Random Glucose (60-115) mg/dL Calcium (8.4-10.2) mg/dL Total Bilirubin (0.0-1.0) mg/dL AST (5-31) U/L ALT (0-31) U/L Alkaline Phosphatase (39-117) U/L Troponin I High Sens (<3.5-17.0) ng/L Total Protein (6.5-8.0) g/dL Albumin (3.5-5.0) g/dL Urine Color Urine Appearance Urine pH (5.0-9.0) Ur Specific Andreas (1.005-1.025) Urine Protein (Neg-Trace) mg/dL Urine Glucose (UA) (Negative) mg/dL Urine Ketones (Negative) mg/dL Urine Blood (Negative) Urine Nitrite (Negative) Ur Leukocyte Esterase (Negative) Urine Test NEGATIVE (NEGATIVE) COVID-19 (LINDA) (Negative) COVID-19 Clin Com Influenza Type A (LILY) (Negative) Influenza Type B (LILY) (Negative) Influenza A & B Note Discharge Plan Discharge Clinical Impression: Dizziness Patient Disposition: Elopement Prescriptions: No Action clindamycin HCl 300 mg capsule 300 mg PO Q6H 7 Days Qty: 28 0RF ibuprofen 600 mg tablet 600 mg PO Q8H PRN (Reason: fever or pain) Qty: 20 0RF Discharge Date/Time: 09/14/22 20:24
--- NOTE | 2022-09-14 15:31 | ECG_ITS ---
Test Reason : dizzness Blood Pressure : / mmHG Vent. Rate : 082 BPM Atrial Rate : 082 BPM P-R Int : 166 ms QRS Dur : 100 ms QT Int : 336 ms P-R-T Axes : 068 055 041 degrees QTc Int : 392 ms Normal sinus rhythm Incomplete right bundle branch block Borderline ECG When compared with ECG of 17-AUG-2022 17:55, No significant change was found Referred By: Cori Jose Electronically Signed By:Jim Lopez
[2022-09-14 16:59] LABS: MANUAL DIFF FLAG NO
[2022-09-14 17:01] LABS: Basophils Percent Auto 0.5 % (0-2); Eosinophils Absolute Auto 0.1 X10*3/uL (0.0-0.4); Eosinophils Percent Auto 0.8 % (0-4); Hematocrit 34.1 % (37.0-47.0); Hemoglobin 11.4 g/dl (12.0-16.0); Imm Gran Abs Auto 0.01 X10*3/uL (0.00-0.03); Imm Gran Pct Auto 0.2 % (0.0-0.4); Lymphocytes Absolute Auto 1.9 X10*3/uL (1.2-4.9); Mean Corpuscular HGB Conc 33.4 g/dl (31.0-35.0); Mean Corpuscular Hemoglobin 30.5 pg (27.0-33.0); Mean Corpuscular Volume 91.2 fL (80.0-98.0); Mean Platelet Volume 9.7 fL (9.4-12.3); Monocytes Absolute Auto 0.4 X10*3/uL (0.1-1.2); Monocytes Percent Auto 5.8 % (2-11); Neutrophils Absolute Auto 3.9 x10*3/uL (2.0-8.3); Neutrophils Percent Auto 62.7 % (45-73); Platelet Count 239 X10*3/uL (160-400); Red Blood Count 3.74 X10*6/uL (4.20-5.50); Red Cell Distribution Width 12.7 % (11.0-16.0); White Blood Count 6.2 X10*3/uL (4.8-10.8)
[2022-09-14 17:04] LABS: Appearance Urine Clear; Color Urine Yellow; Glucose Urine UA Negative (Negative); Leukocyte Esterase Urine Negative (Negative); Nitrite Urine Negative (Negative); PH 7.5 (5.0-9.0); Specific Gravity - Urine <= 1.005 (1.005-1.025); Urine Blood Negative (Negative); Urine Ketones Negative (Negative); Urine Protein Negative (Neg-Trace)
[2022-09-14 17:05] LABS: UPreg QC Valid YES; Urine Pregnancy NEGATIVE (NEGATIVE)
[2022-09-14 17:23] LABS: Alanine Aminotransferase 12 U/L (0-31); Albumin Level 4.5 g/dL (3.5-5.0); Alkaline Phosphatase 48 U/L (39-117); Anion Gap 11 (12-20); Aspartate Amino Transferase 16 U/L (5-31); Bilirubin Total 0.4 mg/dL (0.0-1.0); Blood Urea Nitrogen 9 mg/dL (9-16); Calcium 9.7 mg/dL (8.4-10.2); Carbon Dioxide 27 mmol/L (22-29); Chloride 107 mmol/L (96-108); Creatinine Clr Calc Pharmacy 93.1; Estimated Glomerular Filt Rate > 60; Glucose Random 113 mg/dL (60-115); Potassium 4.3 mmol/L (3.3-5.1); Sodium 141 mmol/L (135-145); Total Protein 7.2 g/dL (6.5-8.0)
[2022-09-14 17:25] LABS: COVID-19 Test Negative (Negative)
[2022-09-14 17:26] LABS: IDNOW Serial# 08D9AD1C; Influenza A Negative (Negative); Influenza B2 Positive (Negative)
[2022-09-14 17:28] LABS: Troponin-I High Sensitivity < 3.5 ng/L (<3.5-17.0)
== END 2022-09-14 20:24 | disposition left against medical advice (07) ==
PROVIDERS: Nurse Practitioner Family; Emergency Provider Emergency Medicine
DX: R42 Dizziness and giddiness (principal); Z20.822 Contact with and (suspected) exposure to COVID-19; Z79.899 Other long term (current) drug therapy
CPT/HCPCS: 71046; 80053; 81003; 81025; 84484; 85025; 87502; 87635; 93005; 99283

== ENCOUNTER 2022-09-16 13:00 | Outpatient (RCR) | payer MEDICAID, SELFPAY ==
[2022-09-11 11:14] VITALS: BP 111/69; PULSE 87
== END 2022-10-27 15:49 | disposition home or self-care (01) ==
LOC: HO.PT 13:00
PROVIDERS: PCP Registered Nurse; Visit Provider Internal Medicine
DX: R42 Dizziness and giddiness (principal)
CPT/HCPCS: 95992; 97112; 97161

== ENCOUNTER 2022-10-28 11:53 | Outpatient (REF) | payer MEDICAID, SELFPAY ==
--- NOTE | 2022-10-28 09:30 | EMG_ITS ---
Please see scanned EMG / Nerve Conduction Report. MTDD
== END 2022-10-28 11:54 | disposition home or self-care (01) ==
LOC: HO.NEURO 11:53
PROVIDERS: Visit Provider Internal Medicine
DX: M25.531 Pain in right wrist (principal); M25.532 Pain in left wrist
CPT/HCPCS: 95885; 95913

== ENCOUNTER 2022-11-05 18:42 | Emergency (ER) | payer MEDICAID, SELFPAY ==
--- NOTE | ~2022-11-05 | XR_ITS ---
EXAMINATION: XR CHEST CLINICAL INFORMATION: Chest COMPARISON: 09/14/2022 TECHNIQUE: Frontal view of the chest was obtained. FINDINGS: No significant abnormality is noted involving the heart, lungs, mediastinum, bony thorax or soft tissues. XR/XR chest 1V IMPRESSION: Unremarkable examination.
--- NOTE | 2022-11-05 18:45 | ECG_ITS ---
Test Reason : cx pain Blood Pressure : / mmHG Vent. Rate : 085 BPM Atrial Rate : 085 BPM P-R Int : 168 ms QRS Dur : 104 ms QT Int : 350 ms P-R-T Axes : 053 036 031 degrees QTc Int : 416 ms Normal sinus rhythm with sinus arrhythmia Incomplete right bundle branch block Borderline ECG When compared with ECG of 14-SEP-2022 16:40, No significant change was found Referred By: Stefany Grider Electronically Signed By:DIONICIO PIERSON MD
[2022-11-05 18:50] VITALS: BP 159/90; PULSE 82; RESP 18; O2SAT 98; BMI 22.3
--- NOTE | 2022-11-05 18:51 | ED.CHESTPAIN ---
HPI - Chest Pain General Chief Complaint: Chest Pain Stated Complaint: migraine,chest pain Related Data Home Medications Medication Instructions Recorded Confirmed cholecalciferol (vitamin D3) 25 25 mcg PO DAILY 02/03/23 mcg (1,000 unit) capsule cyanocobalamin (vitamin B-12) 1,000 mcg PO DAILY 02/03/23 1,000 mcg capsule Previous Rx's Medication Instructions Recorded ibuprofen 600 mg tablet 600 mg PO Q8H PRN fever or pain 08/17/22 #20 tabs Allergies Allergy/AdvReac Type Severity Reaction Status Date / Time shrimp [SHRIMP] Allergy Intermediate SWELLING Verified 12/09/22 09:21 amoxicillin [AMOXICILLIN] Allergy Unknown HIVES Verified 12/09/22 09:21 Penicillins [PENICILLINS] Allergy Unknown HIVES Verified 12/09/22 09:21 [facility] Social History Social History Household Members: Children Housing: Apartment Alcohol intake: never Patient Tobacco Use Status: Current everyday Tobacco user Cigarettes Per Day: 10 Years Smoked: 17 Smoked in Last 30 Days: Yes Use of substances other than those prescribed or required for medical reasons: No Any prior treatment program specific to substance use: No Advance Directives: No Advance Directives Information Provided: Yes Patient : No Current occupational status: employed 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 This is a 31-year-old female presenting with 6/10 substernal chest pain described as a pinching sensation, patient reports that sometimes when she takes a deep breath she feels pain under her left breast. This has been going on since Wednesday progressively worsening. Denies fevers, chills, upper respiratory symptoms, nausea, vomiting, abdominal pain, headache, vision changes, dizziness. Patient not on control, no history of PE/DVT , no history of hypercoagulable disorders, malignancy or cancer. Physical exam benign Plan at this time basic labs, EKG, chest x-ray. Will order D-dimer due to patient's symptoms. Medical Decision Making Lab Data 11/05/22 19:14 11/05/22 19:14 Labs: Lab Results 11/05/22 11/05/22 11/05/22 Range/Units 19:14 19:14 19:14 WBC 5.9 (4.8-10.8) X10*3/uL RBC 3.68 L (4.20-5.50) X10*6/uL Hgb 11.3 L (12.0-16.0) g/dl Hct 33.2 L (37.0-47.0) % MCV 90.2 (80.0-98.0) fL MCH 30.7 (27.0-33.0) pg MCHC 34.0 (31.0-35.0) g/dl RDW 12.3 (11.0-16.0) % Plt Count 212 (160-400) X10*3/uL MPV 9.7 (9.4-12.3) fL Immature Gran % (Auto) 0.2 (0.0-0.4) % Neut % (Auto) 50.1 (45-73) % Lymph % (Auto) 42.6 H (20-40) % [place] % (Auto) 5.8 (2-11) % Eos % (Auto) 1.0 (0-4) % Baso % (Auto) 0.3 (0-2) % Lymph # (Auto) 2.5 (1.2-4.9) X10*3/uL [place] # (Auto) 0.3 (0.1-1.2) X10*3/uL Eos # (Auto) 0.1 (0.0-0.4) X10*3/uL Baso # (Auto) 0.0 (0.0-0.2) X10*3/uL Abs Immat Gran (auto) 0.01 (0.00-0.03) X10*3/uL Absolute Neuts (auto) 2.9 (2.0-8.3) x10*3/uL Absolute Nucleated RBC 0.000 (0.0-0.012) X10*3/uL Nucleated RBC % (auto) 0.0 (0.0-0.2) /100WBC D-Dimer High Sensitivty NG/ML Sodium 141 (135-145) mmol/L Potassium 3.7 (3.3-5.1) mmol/L Chloride 107 (96-108) mmol/L Carbon Dioxide 25 (22-29) mmol/L Anion Gap 13 (12-20) BUN 14 (9-16) mg/dL Creatinine 0.83 (0.5-1.4) mg/dL Estim Creat Clear Calc 86.4 Estimated GFR > 60 Random Glucose 98 (60-115) mg/dL Calcium 9.1 D (8.4-10.2) mg/dL Total Bilirubin 0.2 (0.0-1.0) mg/dL AST 15 (5-31) U/L ALT 13 (0-31) U/L Alkaline Phosphatase 47 (39-117) U/L Troponin I High Sens < 3.5 (<3.5-17.0) ng/L Total Protein 6.8 (6.5-8.0) g/dL Albumin 4.2 (3.5-5.0) g/dL COVID-19 (LINDA) (Negative) COVID-19 Clin Com Influenza Type A (LILY) (Negative) Influenza Type B (LILY) (Negative) Influenza A & B Note 11/05/22 11/05/22 11/05/22 Range/Units 19:14 19:14 19:14 WBC (4.8-10.8) X10*3/uL RBC (4.20-5.50) X10*6/uL Hgb (12.0-16.0) g/dl Hct (37.0-47.0) % MCV (80.0-98.0) fL MCH (27.0-33.0) pg MCHC (31.0-35.0) g/dl RDW (11.0-16.0) % Plt Count (160-400) X10*3/uL MPV (9.4-12.3) fL Immature Gran % (Auto) (0.0-0.4) % Neut % (Auto) (45-73) % Lymph % (Auto) (20-40) % [place] % (Auto) (2-11) % Eos % (Auto) (0-4) % Baso % (Auto) (0-2) % Lymph # (Auto) (1.2-4.9) X10*3/uL [place] # (Auto) (0.1-1.2) X10*3/uL Eos # (Auto) (0.0-0.4) X10*3/uL Baso # (Auto) (0.0-0.2) X10*3/uL Abs Immat Gran (auto) (0.00-0.03) X10*3/uL Absolute Neuts (auto) (2.0-8.3) x10*3/uL Absolute Nucleated RBC (0.0-0.012) X10*3/uL Nucleated RBC % (auto) (0.0-0.2) /100WBC D-Dimer High Sensitivty < 150 NG/ML Sodium (135-145) mmol/L Potassium (3.3-5.1) mmol/L Chloride (96-108) mmol/L Carbon Dioxide (22-29) mmol/L Anion Gap (12-20) BUN (9-16) mg/dL Creatinine (0.5-1.4) mg/dL Estim Creat Clear Calc Estimated GFR Random Glucose (60-115) mg/dL Calcium (8.4-10.2) mg/dL Total Bilirubin (0.0-1.0) mg/dL AST (5-31) U/L ALT (0-31) U/L Alkaline Phosphatase (39-117) U/L Troponin I High Sens (<3.5-17.0) ng/L Total Protein (6.5-8.0) g/dL Albumin (3.5-5.0) g/dL COVID-19 (LINDA) Negative (Negative) COVID-19 Clin Com See Note Influenza Type A (LILY) Negative (Negative) Influenza Type B (LILY) Negative (Negative) Influenza A & B Note See Note Discharge Plan Discharge Clinical Impression: Eloped from emergency department Patient Disposition: Elopement Prescriptions: No Action ibuprofen 600 mg tablet 600 mg PO Q8H PRN (Reason: fever or pain) Qty: 20 0RF cholecalciferol (vitamin D3) 25 mcg (1,000 unit) capsule 25 mcg PO DAILY cyanocobalamin (vitamin B-12) 1,000 mcg capsule 1,000 mcg PO DAILY Interventions: ED Discharge Assessment Last Done: 11/05/22 22:54 Discharge Date/Time: 11/05/22 23:10
[2022-11-05 19:25] LABS: MANUAL DIFF FLAG NO
[2022-11-05 19:27] LABS: Basophils Percent Auto 0.3 % (0-2); Eosinophils Absolute Auto 0.1 X10*3/uL (0.0-0.4); Hematocrit 33.2 % (37.0-47.0); Hemoglobin 11.3 g/dl (12.0-16.0); Imm Gran Abs Auto 0.01 X10*3/uL (0.00-0.03); Imm Gran Pct Auto 0.2 % (0.0-0.4); Lymphocytes Absolute Auto 2.5 X10*3/uL (1.2-4.9); Lymphocytes Percent Auto 42.6 % (20-40); Mean Corpuscular Hemoglobin 30.7 pg (27.0-33.0); Mean Corpuscular Volume 90.2 fL (80.0-98.0); Mean Platelet Volume 9.7 fL (9.4-12.3); Monocytes Absolute Auto 0.3 X10*3/uL (0.1-1.2); Monocytes Percent Auto 5.8 % (2-11); Neutrophils Absolute Auto 2.9 x10*3/uL (2.0-8.3); Neutrophils Percent Auto 50.1 % (45-73); Platelet Count 212 X10*3/uL (160-400); Red Blood Count 3.68 X10*6/uL (4.20-5.50); Red Cell Distribution Width 12.3 % (11.0-16.0); White Blood Count 5.9 X10*3/uL (4.8-10.8)
[2022-11-05 19:42] LABS: Alanine Aminotransferase 13 U/L (0-31); Albumin Level 4.2 g/dL (3.5-5.0); Alkaline Phosphatase 47 U/L (39-117); Anion Gap 13 (12-20); Aspartate Amino Transferase 15 U/L (5-31); Bilirubin Total 0.2 mg/dL (0.0-1.0); Blood Urea Nitrogen 14 mg/dL (9-16); Calcium 9.1 mg/dL (8.4-10.2); Carbon Dioxide 25 mmol/L (22-29); Chloride 107 mmol/L (96-108); Creatinine Clr Calc Pharmacy 86.4; Estimated Glomerular Filt Rate > 60; Glucose Random 98 mg/dL (60-115); Potassium 3.7 mmol/L (3.3-5.1); Sodium 141 mmol/L (135-145); Total Protein 6.8 g/dL (6.5-8.0)
[2022-11-05 19:45] LABS: COVID-19 Test Negative (Negative); D Dimer High Sensitivity < 150 NG/ML; IDNOW Serial# 16C4AD1C
[2022-11-05 19:51] LABS: IDNOW Serial# BCCEAD1C; Influenza A Negative (Negative); Influenza B2 Negative (Negative)
[2022-11-05 19:52] LABS: Troponin-I High Sensitivity < 3.5 ng/L (<3.5-17.0)
--- NOTE | 2022-11-05 22:54 | PC.NURSE ---
pt was not in the waiting area on 3 calls. sarah
== END 2022-11-05 23:10 | disposition left against medical advice (07) ==
PROVIDERS: Physician Assistant; Emergency Provider Emergency Medicine
DX: R07.9 Chest pain, unspecified (principal); G43.909 Migraine, unspecified, not intractable, without status migrainosus; Z20.822 Contact with and (suspected) exposure to COVID-19
CPT/HCPCS: 36415; 71045; 80053; 84484; 85025; 85379; 87502; 87635; 93005; 99283

== ENCOUNTER → 2022-11-30 13:34 | Outpatient (REF) | payer MEDICAID, SELFPAY ==
--- NOTE | 2022-11-30 13:38 | HM_ITS ---
* Total monitoring time 3 days. * Underlying rhythm is sinus. Average ventricular rate 81/Min. Range 57 to 128/min. * Rare supraventricular ectopy with minimal burden. * No significant pauses or AV blocks. * Shortness of breath, chest pain, arm pain in patient diary correlate with sinus rhythm. MTDD
== END ==
LOC: HO.CARD 13:34
PROVIDERS: PCP Registered Nurse; Visit Provider Registered Nurse
DX: R00.0 Tachycardia, unspecified (principal)
CPT/HCPCS: 93242

== ENCOUNTER 2022-12-01 13:18 | Emergency (ER) | payer MEDICAID, SELFPAY ==
--- NOTE | ~2022-12-01 | XR_ITS ---
EXAMINATION: XR CHEST CLINICAL INFORMATION: Chest pain. COMPARISON: 11/05/2022 chest radiograph. TECHNIQUE: 2 views of the chest were obtained. FINDINGS: No significant abnormality is noted involving the heart, lungs, mediastinum, bony thorax or soft tissues. XR/XR chest 2V IMPRESSION: No acute cardiopulmonary process.
--- NOTE | 2022-12-01 13:19 | ED_ITS ---
HPI - Chest Pain General Chief Complaint: Chest Pain <Cori Jose CNP - Last Filed: 12/01/22 13:25> Stated Complaint: Chest pain <Cori Jose CNP - Last Filed: 12/01/22 13:25> Time Seen by Provider: 12/01/22 15:19 <Cori Jose CNP - Last Filed: 12/01/22 13:25> Source: patient <Varun Ortiz DO - Last Filed: 12/01/22 15:42> Mode of arrival: ambulatory <Varun Ortzi DO - Last Filed: 12/01/22 15:42> Limitations: no limitations <Varun Ortiz DO - Last Filed: 12/01/22 15:42> History of Present Illness HPI narrative: 32 old female with recurrent chest pain for several months has been here at least 3 times in the past 4 months for the same thing has had a negative workup each time comes in today she states having chest pain while in a meeting also back pain. She states it is worse when she lays down she denies any fevers or cough she states she was seen by her primary care doctor was started on Holter monitor yesterday. Patient states she has had no palpitations but today at work had this chest pain she has not take anything for the pain fortunately patient was waiting was seen had labs and x-rayed on drawn though negative she has been having the symptoms the past 2 and half weeks. <Varun Ortiz DO - Last Filed: 12/01/22 15:42> MD complaint: chest pain <DO Doreen Martinez Last Filed: 12/01/22 15:42> Related Data Home Medications: Previous Rx's Medication Instructions Recorded clindamycin HCl 300 mg capsule 300 mg PO Q6H 1 week #28 caps 08/17/22 ibuprofen 600 mg tablet 600 mg PO Q8H PRN fever or pain 08/17/22 #20 tabs <Cori Jose CNP - Last Filed: 12/01/22 13:25> Allergies/Adverse Reactions: Allergies Allergy/AdvReac Type Severity Reaction Status Date / Time shrimp [SHRIMP] Allergy Intermediate SWELLING Unverified 06/13/20 16:47 amoxicillin [AMOXICILLIN] Allergy Unknown HIVES Unverified 06/13/20 16:47 Penicillins [PENICILLINS] Allergy Unknown HIVES Unverified 06/13/20 16:47 <Cori Jose CNP - Last Filed: 12/01/22 13:25> Review of Systems Review of Systems: Review of systems: General: Patient denies any fever chills recent illness or falls Musculoskeletal: Denies back pain or body aches or other injuries HEENT: denies headache, runny nose, ear pain Respiratory: denies shortness of breath, cough Cardiovascular: chest pain no palpitations : denies dysuria, frequency Abdomen: no nausea vomiting denies abdominal pain Extremities: no swelling, no pain Skin: no diaphoresis <Varun Ortiz DO - Last Filed: 12/01/22 15:42> Yes all other systems are reviewed and are negative <Varun Ortiz DO - Last Filed: 12/01/22 15:42> PMFSH Social History Social History: Social History Alcohol intake: never Smoked in Last 30 Days: Yes Use of substances other than those prescribed or required for medical reasons: No Advance Directives: No Advance Directives Information Provided: No <Croi Jose CNP - Last Filed: 12/01/22 13:25> Physical Exam Vital Signs: Vital Signs: Last Vital Signs Temp 97.7 F 12/01/22 13:22 Pulse 68 12/01/22 15:13 Resp 16 12/01/22 15:13 BP 118/62 12/01/22 15:13 Pulse Ox 100 12/01/22 15:13 O2 Del Method 12/01/22 15:13 BMI result Body Mass Index 22.3 <Cori Jose CNP - Last Filed: 12/01/22 13:25> Vital Signs: Last Vital Signs Temp 97.7 F 12/01/22 13:22 Pulse 68 12/01/22 15:13 Resp 16 12/01/22 15:13 BP 118/62 12/01/22 15:13 Pulse Ox 100 12/01/22 15:13 O2 Del Method 12/01/22 15:13 BMI result Body Mass Index 22.3 <Varun Ortiz DO - Last Filed: 12/01/22 15:42> General: Well-appearing well-nourished in no signs of distress HEENT: Normocephalic atraumatic Neck: No signs of JVD, no masses no tenderness or lymphadenopathy Cardiovascular: Regular rate and rhythm Respiratory: Clear to auscultation bilaterally Abdomen: Soft nontender no masses . Extremities: Normal pedal pulses no signs of edema Skin: Dry warm no rashes Back: No tenderness full ROM <Varun Ortiz DO - Last Filed: 12/01/22 15:42> Course Course Course Narrative: This is an RME: Additional HPI, ROS, PE not included below will be deferred to primary provider. Patient is a 32 year old female who presents to the ED for evaluation of CP. She has been experiencing ongoing intermittent chest pain and upper back pain described as a stabbing pain made worse with breathing and L arm pain. Holter monitor currently being worn due to this ongoi ng pain, was placed yesterday, ordered by PCP through [facility]. However she states the pain in her back is new. Denies fevers, chills, URI symptoms, Denies history of DVT/PE/malignancy. No oral contraceptive usage. She is a cigarette smoker. Plan: labs, EKG, viral testing, CXR <Cori Jose CNP - Last Filed: 12/01/22 13:25> Medical Decision Making Medical Decision Making MDM Narrative: Patient with atypical chest pain patient fortunately had to wait for some time but had only labs x-rays done this is very atypical chest pain with no other symptoms of concern I do feel comfortable discharging the patient home I will give Toradol and Tylenol prior to discharge <Varun Ortiz DO - Last Filed: 12/01/22 15:42> Differential Diagnosis Differential Diagnoses: The differential diagnosis associated with the presentation includes <Varun Ortiz DO - Last Filed: 12/01/22 15:42> ACS pneumonia pneumothorax acid reflux or anxiety <DO Doreen Martinez Last Filed: 12/01/22 15:42> Lab Data Result Diagrams: 12/01/22 13:37 12/01/22 13:37 <Cori Jose CNP - Last Filed: 12/01/22 13:25> Labs: Lab Results 12/01/22 12/01/22 12/01/22 Range/Units 13:37 13:37 13:37 WBC 4.3 L (4.8-10.8) X10*3/uL RBC 4.05 L (4.20-5.50) X10*6/uL Hgb 12.1 (12.0-16.0) g/dl Hct 36.6 L (37.0-47.0) % MCV 90.4 (80.0-98.0) fL MCH 29.9 (27.0-33.0) pg MCHC 33.1 (31.0-35.0) g/dl RDW 12.6 (11.0-16.0) % Plt Count 190 (160-400) X10*3/uL MPV 10.2 (9.4-12.3) fL Immature Gran % (Auto) 0.2 (0.0-0.4) % Neut % (Auto) 45.2 (45-73) % Lymph % (Auto) 47.0 H (20-40) % Wharton % (Auto) 5.5 (2-11) % Eos % (Auto) 1.6 (0-4) % Baso % (Auto) 0.5 (0-2) % Lymph # (Auto) 2.0 (1.2-4.9) X10*3/uL Wharton # (Auto) 0.2 (0.1-1.2) X10*3/uL Eos # (Auto) 0.1 (0.0-0.4) X10*3/uL Baso # (Auto) 0.0 (0.0-0.2) X10*3/uL Abs Immat Gran (auto) 0.01 (0.00-0.03) X10*3/uL Absolute Neuts (auto) 2.0 (2.0-8.3) x10*3/uL Absolute Nucleated RBC 0.000 (0.0-0.012) X10*3/uL Nucleated RBC % (auto) 0.0 (0.0-0.2) /100WBC PT 12.8 (10.0-13.1) SEC INR 1.1 (0.9-1.1) Sodium 141 (135-145) mmol/L Potassium 3.7 (3.3-5.1) mmol/L Chloride 108 (96-108) mmol/L Carbon Dioxide 27 (22-29) mmol/L Anion Gap 10 L (12-20) BUN 12 (9-16) mg/dL Creatinine 0.69 (0.5-1.4) mg/dL Estim Creat Clear Calc 102.9 Estimated GFR > 60 Random Glucose 98 (60-115) mg/dL Calcium 9.1 (8.4-10.2) mg/dL Total Bilirubin 0.4 (0.0-1.0) mg/dL AST 14 (5-31) U/L ALT 9 (0-31) U/L Alkaline Phosphatase 45 (39-117) U/L Troponin I High Sens (<3.5-17.0) ng/L Total Protein 7.0 (6.5-8.0) g/dL Albumin 4.4 (3.5-5.0) g/dL Lipase 20 (8-78) U/L Urine Test (NEGATIVE) COVID-19 (LINAD) (Negative) COVID-19 Clin Com Influenza Type A (LILY) (Negative) Influenza Type B (LILY) (Negative) Influenza A & B Note 12/01/22 12/01/22 12/01/22 Range/Units 13:37 13:37 13:37 WBC (4.8-10.8) X10*3/uL RBC (4.20-5.50) X10*6/uL Hgb (12.0-16.0) g/dl Hct (37.0-47.0) % MCV (80.0-98.0) fL MCH (27.0-33.0) pg MCHC (31.0-35.0) g/dl RDW (11.0-16.0) % Plt Count (160-400) X10*3/uL MPV (9.4-12.3) fL Immature Gran % (Auto) (0.0-0.4) % Neut % (Auto) (45-73) % Lymph % (Auto) (20-40) % Wharton % (Auto) (2-11) % Eos % (Auto) (0-4) % Baso % (Auto) (0-2) % Lymph # (Auto) (1.2-4.9) X10*3/uL Wharton # (Auto) (0.1-1.2) X10*3/uL Eos # (Auto) (0.0-0.4) X10*3/uL Baso # (Auto) (0.0-0.2) X10*3/uL Abs Immat Gran (auto) (0.00-0.03) X10*3/uL Absolute Neuts (auto) (2.0-8.3) x10*3/uL Absolute Nucleated RBC (0.0-0.012) X10*3/uL Nucleated RBC % (auto) (0.0-0.2) /100WBC PT (10.0-13.1) SEC INR (0.9-1.1) Sodium (135-145) mmol/L Potassium (3.3-5.1) mmol/L Chloride (96-108) mmol/L Carbon Dioxide (22-29) mmol/L Anion Gap (12-20) BUN (9-16) mg/dL Creatinine (0.5-1.4) mg/dL Estim Creat Clear Calc Estimated GFR Random Glucose (60-115) mg/dL Calcium (8.4-10.2) mg/dL Total Bilirubin (0.0-1.0) mg/dL AST (5-31) U/L ALT (0-31) U/L Alkaline Phosphatase (39-117) U/L Troponin I High Sens < 3.5 (<3.5-17.0) ng/L Total Protein (6.5-8.0) g/dL Albumin (3.5-5.0) g/dL Lipase (8-78) U/L Urine Test (NEGATIVE) COVID-19 (LINDA) Negative (Negative) COVID-19 Clin Com See Note Influenza Type A (LILY) Negative (Negative) Influenza Type B (LLIY) Negative (Negative) Influenza A & B Note See Note 12/01/22 Range/Units 13:37 WBC (4.8-10.8) X10*3/uL RBC (4.20-5.50) X10*6/uL Hgb (12.0-16.0) g/dl Hct (37.0-47.0) % MCV (80.0-98.0) fL MCH (27.0-33.0) pg MCHC (31.0-35.0) g/dl RDW (11.0-16.0) % Plt Count (160-400) X10*3/uL MPV (9.4-12.3) fL Immature Gran % (Auto) (0.0-0.4) % Neut % (Auto) (45-73) % Lymph % (Auto) (20-40) % Wharton % (Auto) (2-11) % Eos % (Auto) (0-4) % Baso % (Auto) (0-2) % Lymph # (Auto) (1.2-4.9) X10*3/uL Wharton # (Auto) (0.1-1.2) X10*3/uL Eos # (Auto) (0.0-0.4) X10*3/uL Baso # (Auto) (0.0-0.2) X10*3/uL Abs Immat Gran (auto) (0.00-0.03) X10*3/uL Absolute Neuts (auto) (2.0-8.3) x10*3/uL Absolute Nucleated RBC (0.0-0.012) X10*3/uL Nucleated RBC % (auto) (0.0-0.2) /100WBC PT (10.0-13.1) SEC INR (0.9-1.1) Sodium (135-145) mmol/L Potassium (3.3-5.1) mmol/L Chloride (96-108) mmol/L Carbon Dioxide (22-29) mmol/L Anion Gap (12-20) BUN (9-16) mg/dL Creatinine (0.5-1.4) mg/dL Estim Creat Clear Calc Estimated GFR Random Glucose (60-115) mg/dL Calcium (8.4-10.2) mg/dL Total Bilirubin (0.0-1.0) mg/dL AST (5-31) U/L ALT (0-31) U/L Alkaline Phosphatase (39-117) U/L Troponin I High Sens (<3.5-17.0) ng/L Total Protein (6.5-8.0) g/dL Albumin (3.5-5.0) g/dL Lipase (8-78) U/L Urine Test NEGATIVE (NEGATIVE) COVID-19 (LINDA) (Negative) COVID-19 Clin Com Influenza Type A (LILY) (Negative) Influenza Type B (LILY) (Negative) Influenza A & B Note <Cori Troy Rebeca, [employer] - Last Filed: 12/01/22 13:25> Lab Results 12/01/22 12/01/22 12/01/22 Range/Units 13:37 13:37 13:37 WBC 4.3 L (4.8-10.8) X10*3/uL RBC 4.05 L (4.20-5.50) X10*6/uL Hgb 12.1 (12.0-16.0) g/dl Hct 36.6 L (37.0-47.0) % MCV 90.4 (80.0-98.0) fL MCH 29.9 (27.0-33.0) pg MCHC 33.1 (31.0-35.0) g/dl RDW 12.6 (11.0-16.0) % Plt Count 190 (160-400) X10*3/uL MPV 10.2 (9.4-12.3) fL Immature Gran % (Auto) 0.2 (0.0-0.4) % Neut % (Auto) 45.2 (45-73) % Lymph % (Auto) 47.0 H (20-40) % Wharton % (Auto) 5.5 (2-11) % Eos % (Auto) 1.6 (0-4) % Baso % (Auto) 0.5 (0-2) % Lymph # (Auto) 2.0 (1.2-4.9) X10*3/uL Wharton # (Auto) 0.2 (0.1-1.2) X10*3/uL Eos # (Auto) 0.1 (0.0-0.4) X10*3/uL Baso # (Auto) 0.0 (0.0-0.2) X10*3/uL Abs Immat Gran (auto) 0.01 (0.00-0.03) X10*3/uL Absolute Neuts (auto) 2.0 (2.0-8.3) x10*3/uL Absolute Nucleated RBC 0.000 (0.0-0.012) X10*3/uL Nucleated RBC % (auto) 0.0 (0.0-0.2) /100WBC PT 12.8 (10.0-13.1) SEC INR 1.1 (0.9-1.1) Sodium 141 (135-145) mmol/L Potassium 3.7 (3.3-5.1) mmol/L Chloride 108 (96-108) mmol/L Carbon Dioxide 27 (22-29) mmol/L Anion Gap 10 L (12-20) BUN 12 (9-16) mg/dL Creatinine 0.69 (0.5-1.4) mg/dL Estim Creat Clear Calc 102.9 Estimated GFR > 60 Random Glucose 98 (60-115) mg/dL Calcium 9.1 (8.4-10.2) mg/dL Total Bilirubin 0.4 (0.0-1.0) mg/dL AST 14 (5-31) U/L ALT 9 (0-31) U/L Alkaline Phosphatase 45 (39-117) U/L Troponin I High Sens (<3.5-17.0) ng/L Total Protein 7.0 (6.5-8.0) g/dL Albumin 4.4 (3.5-5.0) g/dL Lipase 20 (8-78) U/L Urine Test (NEGATIVE) COVID-19 (LINDA) (Negative) COVID-19 Clin Com Influenza Type A (LILY) (Negative) Influenza Type B (LILY) (Negative) Influenza A & B Note 12/01/22 12/01/22 12/01/22 Range/Units 13:37 13:37 13:37 WBC (4.8-10.8) X10*3/uL RBC (4.20-5.50) X10*6/uL Hgb (12.0-16.0) g/dl Hct (37.0-47.0) % MCV (80.0-98.0) fL MCH (27.0-33.0) pg MCHC (31.0-35.0) g/dl RDW (11.0-16.0) % Plt Count (160-400) X10*3/uL MPV (9.4-12.3) fL Immature Gran % (Auto) (0.0-0.4) % Neut % (Auto) (45-73) % Lymph % (Auto) (20-40) % Wharton % (Auto) (2-11) % Eos % (Auto) (0-4) % Baso % (Auto) (0-2) % Lymph # (Auto) (1.2-4.9) X10*3/uL Wharton # (Auto) (0.1-1.2) X10*3/uL Eos # (Auto) (0.0-0.4) X10*3/uL Baso # (Auto) (0.0-0.2) X10*3/uL Abs Immat Gran (auto) (0.00-0.03) X10*3/uL Absolute Neuts (auto) (2.0-8.3) x10*3/uL Absolute Nucleated RBC (0.0-0.012) X10*3/uL Nucleated RBC % (auto) (0.0-0.2) /100WBC PT (10.0-13.1) SEC INR (0.9-1.1) Sodium (135-145) mmol/L Potassium (3.3-5.1) mmol/L Chloride (96-108) mmol/L Carbon Dioxide (22-29) mmol/L Anion Gap (12-20) BUN (9-16) mg/dL Creatinine (0.5-1.4) mg/dL Estim Creat Clear Calc Estimated GFR Random Glucose (60-115) mg/dL Calcium (8.4-10.2) mg/dL Total Bilirubin (0.0-1.0) mg/dL AST (5-31) U/L ALT (0-31) U/L Alkaline Phosphatase (39-117) U/L Troponin I High Sens < 3.5 (<3.5-17.0) ng/L Total Protein (6.5-8.0) g/dL Albumin (3.5-5.0) g/dL Lipase (8-78) U/L Urine Test (NEGATIVE) COVID-19 (LINDA) Negative (Negative) COVID-19 Clin Com See Note Influenza Type A (LILY) Negative (Negative) Influenza Type B (LILY) Negative (Negative) Influenza A & B Note See Note 03/07/23 Range/Units 13:37 WBC (4.8-10.8) X10*3/uL RBC (4.20-5.50) X10*6/uL Hgb (12.0-16.0) g/dl Hct (37.0-47.0) % MCV (80.0-98.0) fL MCH (27.0-33.0) pg MCHC (31.0-35.0) g/dl RDW (11.0-16.0) % Plt Count (160-400) X10*3/uL MPV (9.4-12.3) fL Immature Gran % (Auto) (0.0-0.4) % Neut % (Auto) (45-73) % Lymph % (Auto) (20-40) % Wharton % (Auto) (2-11) % Eos % (Auto) (0-4) % Baso % (Auto) (0-2) % Lymph # (Auto) (1.2-4.9) X10*3/uL Wharton # (Auto) (0.1-1.2) X10*3/uL Eos # (Auto) (0.0-0.4) X10*3/uL Baso # (Auto) (0.0-0.2) X10*3/uL Abs Immat Gran (auto) (0.00-0.03) X10*3/uL Absolute Neuts (auto) (2.0-8.3) x10*3/uL Absolute Nucleated RBC (0.0-0.012) X10*3/uL Nucleated RBC % (auto) (0.0-0.2) /100WBC PT (10.0-13.1) SEC INR (0.9-1.1) Sodium (135-145) mmol/L Potassium (3.3-5.1) mmol/L Chloride (96-108) mmol/L Carbon Dioxide (22-29) mmol/L Anion Gap (12-20) BUN (9-16) mg/dL Creatinine (0.5-1.4) mg/dL Estim Creat Clear Calc Estimated GFR Random Glucose (60-115) mg/dL Calcium (8.4-10.2) mg/dL Total Bilirubin (0.0-1.0) mg/dL AST (5-31) U/L ALT (0-31) U/L Alkaline Phosphatase (39-117) U/L Troponin I High Sens (<3.5-17.0) ng/L Total Protein (6.5-8.0) g/dL Albumin (3.5-5.0) g/dL Lipase (8-78) U/L Urine Test NEGATIVE (NEGATIVE) COVID-19 (LINDA) (Negative) COVID-19 Clin Com Influenza Type A (LILY) (Negative) Influenza Type B (LILY) (Negative) Influenza A & B Note <Varun Ortiz DO - Last Filed: 12/01/22 15:42> Scores Heart Score History: -0- slightly suspicious <Varun Ortiz DO - Last Filed: 12/01/22 15:42> ECG: -0- normal <Varun Ortiz DO - Last Filed: 12/01/22 15:42> Age: -0- < or = 45 <Varun Ortiz DO - Last Filed: 12/01/22 15:42> Risk factory: -0- no risk factors known <Varun Ortiz DO - Last Filed: 12/01/22 15:42> Troponin: -0- < or = normal limit <Varun Ortiz DO - Last Filed: 12/01/22 15:42> Score: 0 <Varun Ortiz DO - Last Filed: 12/01/22 15:42> Risk: 1.7% <Varun Ortiz DO - Last Filed: 12/01/22 15:42> Discharge Plan Discharge Clinical Impression: Chest pain <Cori Jose CNP - Last Filed: 12/01/22 13:25> Patient Disposition: Home, Self-Care <Cori Jose CNP - Last Filed: 12/01/22 13:25> Instructions: Chest Pain (DC) <Cori Jose CNP - Last Filed: 12/01/22 13:25> Additional Instructions: please call follow-up for chest pain if you have any other concerns please do not hesitate to come back to emergency department. <Cori Jose CNP - Last Filed: 12/01/22 13:25> Prescriptions: No Action clindamycin HCl 300 mg capsule 300 mg PO Q6H 7 Days Qty: 28 0RF ibuprofen 600 mg tablet 600 mg PO Q8H PRN (Reason: fever or pain) Qty: 20 0RF <Cori Jose CNP - Last Filed: 12/01/22 13:25> Stand Alone Forms: Work/School Release <Cori Jose CNP - Last Filed: 12/01/22 13:25>
[2022-12-01 13:22] VITALS: BP 137/74; PULSE 89; RESP 18; TEMP 36.5; O2SAT 100; BMI 22.3
--- NOTE | 2022-12-01 13:23 | ECG_ITS ---
Test Reason : cp Blood Pressure : / mmHG Vent. Rate : 082 BPM Atrial Rate : 082 BPM P-R Int : 148 ms QRS Dur : 102 ms QT Int : 370 ms P-R-T Axes : 049 032 016 degrees QTc Int : 432 ms Normal sinus rhythm Incomplete right bundle branch block Borderline ECG No significant changes when compared with the previous EKG of 05 nov 2022 Referred By: Cori Jose Electronically Signed By:UNRULY BHATTI
[2022-12-01 13:44] LABS: MANUAL DIFF FLAG NO
[2022-12-01 13:49] LABS: INTERNATIONAL NORM RATIO 1.1 (0.9-1.1); Prothrombin Time 12.8 SEC (10.0-13.1)
[2022-12-01 13:55] LABS: UPreg QC Valid YES; Urine Pregnancy NEGATIVE (NEGATIVE)
[2022-12-01 13:57] LABS: Basophils Percent Auto 0.5 % (0-2); Eosinophils Absolute Auto 0.1 X10*3/uL (0.0-0.4); Eosinophils Percent Auto 1.6 % (0-4); Hematocrit 36.6 % (37.0-47.0); Hemoglobin 12.1 g/dl (12.0-16.0); Imm Gran Abs Auto 0.01 X10*3/uL (0.00-0.03); Imm Gran Pct Auto 0.2 % (0.0-0.4); Mean Corpuscular HGB Conc 33.1 g/dl (31.0-35.0); Mean Corpuscular Hemoglobin 29.9 pg (27.0-33.0); Mean Corpuscular Volume 90.4 fL (80.0-98.0); Mean Platelet Volume 10.2 fL (9.4-12.3); Monocytes Absolute Auto 0.2 X10*3/uL (0.1-1.2); Monocytes Percent Auto 5.5 % (2-11); Neutrophils Percent Auto 45.2 % (45-73); Platelet Count 190 X10*3/uL (160-400); Red Blood Count 4.05 X10*6/uL (4.20-5.50); Red Cell Distribution Width 12.6 % (11.0-16.0); White Blood Count 4.3 X10*3/uL (4.8-10.8)
[2022-12-01 13:58] LABS: Alanine Aminotransferase 9 U/L (0-31); Albumin Level 4.4 g/dL (3.5-5.0); Alkaline Phosphatase 45 U/L (39-117); Anion Gap 10 (12-20); Aspartate Amino Transferase 14 U/L (5-31); Bilirubin Total 0.4 mg/dL (0.0-1.0); Blood Urea Nitrogen 12 mg/dL (9-16); Calcium 9.1 mg/dL (8.4-10.2); Carbon Dioxide 27 mmol/L (22-29); Chloride 108 mmol/L (96-108); Creatinine Clr Calc Pharmacy 102.9; Estimated Glomerular Filt Rate > 60; Glucose Random 98 mg/dL (60-115); Lipase 20 U/L (8-78); Potassium 3.7 mmol/L (3.3-5.1); Sodium 141 mmol/L (135-145)
[2022-12-01 14:00] LABS: IDNOW Serial# BCCEAD1C; Influenza A Negative (Negative); Influenza B2 Negative (Negative)
[2022-12-01 14:01] LABS: COVID-19 Test Negative (Negative); IDNOW Serial# 16C4AD1C
[2022-12-01 14:05] LABS: Troponin-I High Sensitivity < 3.5 ng/L (<3.5-17.0)
[2022-12-01 15:13] VITALS: BP 118/62; PULSE 68; RESP 16; O2SAT 100
[2022-12-01 15:46] VITALS: PULSE 69
[2022-12-01] MEDS: Ketorolac Tromethamine 30 MG/ML VIAL 15 MG IM (15:52)
[2022-12-01] MEDS: Acetaminophen 325 MG TABLET 650 MG PO (15:52)
== END 2022-12-01 16:01 | disposition home or self-care (01) ==
PROVIDERS: Nurse Practitioner Family; Emergency Provider Student in an Organized Health Care Education/Training Program
DX: R07.89 Other chest pain (principal); M54.50 Low back pain, unspecified; Z20.822 Contact with and (suspected) exposure to COVID-19; Z20.828 Contact with and (suspected) exposure to other viral communicable diseases; Z79.899 Other long term (current) drug therapy
CPT/HCPCS: 71046; 80053; 81025; 83690; 84484; 85025; 85610; 87502; 87635; 93005; 96372; 99284; 99285; J1885

== ENCOUNTER → 2022-12-09 09:03 | Outpatient (BNVA) | payer MEDICAID, SELFPAY | PROVIDERS: Visit Provider Physician Assistant | DX: S69.80XA Other specified injuries of unspecified wrist, hand and finger(s), initial encounter (principal); X58.XXXA Exposure to other specified factors, initial encounter; Y93.9 Activity, unspecified; Y92.9 Unspecified place or not applicable; Y99.8 Other external cause status | CPT/HCPCS: 99202 ==

== ENCOUNTER 2023-02-03 11:59 | Outpatient (REF) | payer MEDICAID, SELFPAY ==
[2023-02-06 06:39] LABS: HPV mRNA E6/E7 rflx Not Detected (Not Detected)
== END 2023-02-03 12:00 | disposition home or self-care (01) ==
LOC: HO.LNP 11:59
PROVIDERS: PCP Internal Medicine; Visit Provider Obstetrics & Gynecology
DX: Z01.419 Encounter for gynecological examination (general) (routine) without abnormal findings (principal); Z11.51 Encounter for screening for human papillomavirus (HPV)
CPT/HCPCS: 87624; 88142

== ENCOUNTER 2023-03-21 21:17 | Emergency (ER) | payer MEDICAID, SELFPAY ==
--- NOTE | ~2023-03-21 | XR_ITS ---
EXAMINATION: XR CHEST CLINICAL INFORMATION: Chest pain COMPARISON: Chest x-ray 12/01/2022 TECHNIQUE: Frontal view of the chest was obtained. FINDINGS: No significant abnormality is noted involving the heart, lungs, mediastinum, bony thorax or soft tissues. XR/XR chest 1V IMPRESSION: Unremarkable chest examination.
--- NOTE | 2023-03-21 21:22 | ECG_ITS ---
Test Reason : CHEST PAIN Blood Pressure : / mmHG Vent. Rate : 083 BPM Atrial Rate : 083 BPM P-R Int : 160 ms QRS Dur : 100 ms QT Int : 352 ms P-R-T Axes : 061 038 042 degrees QTc Int : 413 ms Normal sinus rhythm Normal ECG When compared with ECG of 01-DEC-2022 13:30, No significant change was found Referred By: Generic ED Physician Electronically Signed By:UNRULY BHATTI
[2023-03-21 21:28] VITALS: BP 120/70; PULSE 82; RESP 16; TEMP 36.7; O2SAT 99; BMI 21.6
[2023-03-21 21:46] LABS: MANUAL DIFF FLAG NO
[2023-03-21 21:47] LABS: Basophils Percent Auto 0.3 % (0-2); Eosinophils Absolute Auto 0.1 X10*3/uL (0.0-0.4); Eosinophils Percent Auto 0.9 % (0-4); Hematocrit 32.6 % (37.0-47.0); Hemoglobin 11.1 g/dl (12.0-16.0); Imm Gran Abs Auto 0.01 X10*3/uL (0.00-0.03); Imm Gran Pct Auto 0.2 % (0.0-0.4); Lymphocytes Absolute Auto 2.8 X10*3/uL (1.2-4.9); Mean Corpuscular Hemoglobin 30.1 pg (27.0-33.0); Mean Corpuscular Volume 88.3 fL (80.0-98.0); Mean Platelet Volume 9.9 fL (9.4-12.3); Monocytes Absolute Auto 0.4 X10*3/uL (0.1-1.2); Monocytes Percent Auto 5.5 % (2-11); Neutrophils Absolute Auto 3.3 x10*3/uL (2.0-8.3); Neutrophils Percent Auto 50.1 % (45-73); Platelet Count 192 X10*3/uL (160-400); Red Blood Count 3.69 X10*6/uL (4.20-5.50); Red Cell Distribution Width 12.7 % (11.0-16.0); White Blood Count 6.5 X10*3/uL (4.8-10.8)
[2023-03-21 22:00] LABS: Anion Gap 12 (12-20); Blood Urea Nitrogen 14 mg/dL (9-16); Calcium 9.2 mg/dL (8.4-10.2); Carbon Dioxide 24 mmol/L (22-29); Chloride 107 mmol/L (96-108); Creatinine Clr Calc Pharmacy 83.6; Estimated Glomerular Filt Rate > 60; Glucose Random 101 mg/dL (60-115); Potassium 3.7 mmol/L (3.3-5.1); Sodium 139 mmol/L (135-145)
[2023-03-21 22:09] LABS: Troponin-I High Sensitivity < 2.7 ng/L (<3.5-17.0)
[2023-03-22 00:08] VITALS: BP 116/68; PULSE 78; RESP 12; TEMP 36.7; O2SAT 100
[2023-03-22] MEDS: Acetaminophen 325 MG TABLET 650 MG PO (00:13)
[2023-03-22 02:43] VITALS: BP 121/68; PULSE 67; RESP 18; TEMP 36.9; O2SAT 99
[2023-03-22 02:54] VITALS: BP 128/77; PULSE 68; RESP 16; TEMP 36.9
--- NOTE | 2023-03-22 03:39 | ED_ITS ---
HPI - Chest Pain General Chief Complaint: Chest Pain Stated Complaint: Chest Pain/left arm numbness Time Seen by Provider: 03/22/23 03:17 History of Present Illness HPI narrative: Patient is 32 years old presents today with having chest pain over left chest worse with deep breath worse with movement. Patient not on control. Positive history of smoking. No history of diabetes, hypertension, hypercholesterolemia. No fever no chills. No travel history. Not on control pills. made worse with deep breath. No leg pain. No travel history. no family history of coronary artery disease Related Data Home Medications Medication Instructions Recorded Confirmed cholecalciferol (vitamin D3) 25 25 mcg PO DAILY 02/03/23 mcg (1,000 unit) capsule cyanocobalamin (vitamin B-12) 1,000 mcg PO DAILY 02/03/23 1,000 mcg capsule Previous Rx's Medication Instructions Recorded ibuprofen 600 mg tablet 600 mg PO Q8H PRN fever or pain 08/17/22 #20 tabs Allergies Allergy/AdvReac Type Severity Reaction Status Date / Time shrimp [SHRIMP] Allergy Intermediate SWELLING Verified 12/09/22 09:21 amoxicillin [AMOXICILLIN] Allergy Unknown HIVES Verified 12/09/22 09:21 Penicillins [PENICILLINS] Allergy Unknown HIVES Verified 12/09/22 09:21 Review of Systems Review of Systems: positive chest pain Yes all other systems are reviewed and are negative PMFSH Past Medical History Attestation statement: The following information was validated with the patient. 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 Oriented X3. No acute distress. Eyes: Pupils equal, round and reactive to light. ENT: Pharynx normal. Neck: Normal inspection. Neck supple. No lymph nodes noted. No crepitus CVS: Normal heart rate and rhythm. Pulses normal. Normal S1 and S2 Respiratory: No respiratory distress. Breath sounds normal. No Wheezing. No rales Abdomen: Soft and nontender. No rigidity. No distention. good BS x4 Skin: Skin warm and dry. Normal skin color. Normal skin turgor. Extremities: No lower extremity edema. Neurovascular intact to all extremities. No Lacerations. No Rash Neuro: Oriented X 3. No motor deficit. No sensory deficit. Moving all extermities. No slurred speech Medications Administered Discontinued Medications Generic Name Dose Route Start Last Admin Trade Name Freq PRN Reason Stop Dose Admin Acetaminophen 650 mg 03/22/23 00:09 03/22/23 00:13 Acetaminophen 325 Mg Tablet PO 03/22/23 00:10 650 mg ONCE ONE Administration Ketorolac Tromethamine 30 mg 03/22/23 03:36 03/22/23 03:52 Ketorolac Tromethamine 30 Mg/Ml Vial IVPUSH 03/22/23 03:37 30 mg ONCE ONE Administration Medical Decision Making Medical Decision Making [facility] Narrative: EKG showed a sinus rhythm heart rate is 80 PA QRS QT within normal limits as no acute ST segment elevation. My interpretation patient's chest x-ray was also negative for any acute evidence of pneumonia pneumothorax. Patient's D-dimer is negative. Making PE/ DVT unlikely. Pain is more likely musculoskeletal. It is sharp. Patient is 32 years old with only risk factor being smoking. Will have patient take Motrin for pain. Close follow-up on an outpatient basis. Differential Diagnosis Differential Diagnoses: The differential diagnosis associated with the presentation includes Pericarditis, pneumonia, pneumothorax, rib fracture, ACS Lab Data [facility] Lab Attestation statement: I reviewed the patient's lab results. 03/21/23 21:43 03/21/23 21:43 Labs: Lab Results 03/21/23 03/21/23 03/21/23 Range/Units 21:43 21:43 21:43 WBC 6.5 (4.8-10.8) X10*3/uL RBC 3.69 L (4.20-5.50) X10*6/uL Hgb 11.1 L (12.0-16.0) g/dl Hct 32.6 L (37.0-47.0) % MCV 88.3 (80.0-98.0) fL MCH 30.1 (27.0-33.0) pg MCHC 34.0 (31.0-35.0) g/dl RDW 12.7 (11.0-16.0) % Plt Count 192 (160-400) X10*3/uL MPV 9.9 (9.4-12.3) fL Immature Gran % (Auto) 0.2 (0.0-0.4) % Neut % (Auto) 50.1 (45-73) % Lymph % (Auto) 43.0 H (20-40) % Conway % (Auto) 5.5 (2-11) % Eos % (Auto) 0.9 (0-4) % Baso % (Auto) 0.3 (0-2) % Lymph # (Auto) 2.8 (1.2-4.9) X10*3/uL Conway # (Auto) 0.4 (0.1-1.2) X10*3/uL Eos # (Auto) 0.1 (0.0-0.4) X10*3/uL Baso # (Auto) 0.0 (0.0-0.2) X10*3/uL Abs Immat Gran (auto) 0.01 (0.00-0.03) X10*3/uL Absolute Neuts (auto) 3.3 (2.0-8.3) x10*3/uL Absolute Nucleated RBC 0.000 (0.0-0.012) X10*3/uL Nucleated RBC % (auto) 0.0 (0.0-0.2) /100WBC D-Dimer High Sensitivty NG/ML Sodium 139 (135-145) mmol/L Potassium 3.7 (3.3-5.1) mmol/L Chloride 107 (96-108) mmol/L Carbon Dioxide 24 (22-29) mmol/L Anion Gap 12 (12-20) BUN 14 (9-16) mg/dL Creatinine 0.85 (0.5-1.4) mg/dL Estim Creat Clear Calc 83.6 Estimated GFR > 60 Random Glucose 101 (60-115) mg/dL Calcium 9.2 (8.4-10.2) mg/dL Troponin I High Sens < 2.7 (<3.5-17.0) ng/L Beta HCG, Quant mIU/mL 03/22/23 03/22/23 03/22/23 Range/Units 04:00 04:00 04:00 WBC (4.8-10.8) X10*3/uL RBC (4.20-5.50) X10*6/uL Hgb (12.0-16.0) g/dl Hct (37.0-47.0) % MCV (80.0-98.0) fL MCH (27.0-33.0) pg MCHC (31.0-35.0) g/dl RDW (11.0-16.0) % Plt Count (160-400) X10*3/uL MPV (9.4-12.3) fL Immature Gran % (Auto) (0.0-0.4) % Neut % (Auto) (45-73) % Lymph % (Auto) (20-40) % Conway % (Auto) (2-11) % Eos % (Auto) (0-4) % Baso % (Auto) (0-2) % Lymph # (Auto) (1.2-4.9) X10*3/uL Conway # (Auto) (0.1-1.2) X10*3/uL Eos # (Auto) (0.0-0.4) X10*3/uL Baso # (Auto) (0.0-0.2) X10*3/uL Abs Immat Gran (auto) (0.00-0.03) X10*3/uL Absolute Neuts (auto) (2.0-8.3) x10*3/uL Absolute Nucleated RBC (0.0-0.012) X10*3/uL Nucleated RBC % (auto) (0.0-0.2) /100WBC D-Dimer High Sensitivty < 150 NG/ML Sodium (135-145) mmol/L Potassium (3.3-5.1) mmol/L Chloride (96-108) mmol/L Carbon Dioxide (22-29) mmol/L Anion Gap (12-20) BUN (9-16) mg/dL Creatinine (0.5-1.4) mg/dL Estim Creat Clear Calc Estimated GFR Random Glucose (60-115) mg/dL Calcium (8.4-10.2) mg/dL Troponin I High Sens < 2.7 (<3.5-17.0) ng/L Beta HCG, Quant < 2 mIU/mL Independent Interpretation I performed an independent interpretation of an: EKG and Plain X-Ray Interpretation: my interpretation is EKG shows sinus rhythm heart rate is 80 PA QRS QT within normal limits. My interpretation of patient's chest x-ray was grossly negative for any pneumonia pneumothorax Radiology Impression Discussion of test interpretation with radiology: I have reviewed the radiologist's reading. Prescription Management I considered prescription management with: Pain Medication Chronic Conditions smoker Discharge Plan Discharge Clinical Impression: Chest pain Patient Disposition: Home, Self-Care Instructions: Chest Pain (DC) Prescriptions: No Action ibuprofen 600 mg tablet 600 mg PO Q8H PRN (Reason: fever or pain) Qty: 20 0RF cholecalciferol (vitamin D3) 25 mcg (1,000 unit) capsule 25 mcg PO DAILY cyanocobalamin (vitamin B-12) 1,000 mcg capsule 1,000 mcg PO DAILY Referrals: [facility] [Primary Care Provider] - 03/24/23
[2023-03-22] MEDS: Ketorolac Tromethamine 30 MG/ML VIAL IVPUSH (03:52)
[2023-03-22 04:13] LABS: D Dimer High Sensitivity < 150 NG/ML
[2023-03-22 04:26] LABS: Troponin-I High Sensitivity < 2.7 ng/L (<3.5-17.0)
[2023-03-22 04:29] LABS: HCG Quantitative < 2 mIU/mL
[2023-03-22 05:14] VITALS: BP 128/80; PULSE 80; RESP 16; TEMP 36.7; O2SAT 99
--- NOTE | 2023-03-22 05:16 | PC.NURSE ---
patient in the process of being discharged patient vitals are stable
== END 2023-03-22 05:17 | disposition home or self-care (01) ==
PROVIDERS: Emergency Provider Emergency Medicine Emergency Medical Services
DX: R07.9 Chest pain, unspecified (principal); F17.210 Nicotine dependence, cigarettes, uncomplicated; Z79.899 Other long term (current) drug therapy
CPT/HCPCS: 36415; 71045; 80048; 84484; 84702; 85025; 85379; 93005; 96374; 99284; 99285; J1885

== ENCOUNTER 2023-06-07 13:59 | Outpatient (REF) | payer MEDICAID, SELFPAY ==
--- NOTE | ~2023-06-07 | XR_ITS ---
EXAMINATION: XR SHOULDER, LEFT CLINICAL INFORMATION: Strain of cervical portion of the trapezius muscle on the left COMPARISON: None available. TECHNIQUE: AP external rotation, Grashey, scapular Y, and axillary views of the left shoulder. FINDINGS: Acromioclavicular and glenohumeral joint alignments are maintained. No evidence of acute fracture or dislocation. No significant degenerative or arthritic changes. No soft tissue calcifications. Visualized thorax is unremarkable. Essentially no significant abnormality of the bones, joints or soft tissues is demonstrated. XR/XR shoulder LT min 2V IMPRESSION: Unremarkable left shoulder radiographs.
== END 2023-06-07 14:00 | disposition home or self-care (01) ==
LOC: HO.HHCX 13:59
PROVIDERS: Visit Provider Family Medicine
DX: S16.1XXA Strain of muscle, fascia and tendon at neck level, initial encounter (principal); X58.XXXA Exposure to other specified factors, initial encounter; Y93.9 Activity, unspecified; Y92.9 Unspecified place or not applicable; Y99.9 Unspecified external cause status
CPT/HCPCS: 73030

== ENCOUNTER 2023-06-10 14:49 | Outpatient (REF) | payer MEDICAID, SELFPAY ==
--- NOTE | ~2023-06-10 | XR_ITS ---
EXAMINATION: XR RIBS, LEFT CLINICAL INFORMATION: Pain Patient states left rib pain, no injury, for 2 weeks, anterior and posterior ribs. COMPARISON: Chest 03/22/2023 TECHNIQUE: PA chest and 4 views of the left ribs were obtained. FINDINGS: Lungs are clear. No consolidation, pneumothorax, or pleural effusion. The cardiomediastinal silhouette and pulmonary vasculature are normal. Osseous structures are unremarkable. Ribs are intact. No fractures are identified. XR/XR ribs LT min 3V w CXR1V IMPRESSION: No displaced left rib fracture.
== END 2023-06-10 14:50 | disposition home or self-care (01) ==
LOC: HO.HHCX 14:49
PROVIDERS: Visit Provider Internal Medicine
DX: R07.82 Intercostal pain (principal)
CPT/HCPCS: 71101

== ENCOUNTER 2024-05-25 13:16 | Outpatient (REF) | payer MEDICAID, SELFPAY ==
--- NOTE | ~2024-05-25 | US_ITS ---
EXAMINATION: US PELVIS CLINICAL INFORMATION: Pelvic pain COMPARISON: CT abdomen pelvis 12/19/2020 TECHNIQUE: Ultrasound of the pelvis is performed using both transabdominal and transvaginal transducers along with Doppler. Transvaginal imaging is performed due to inadequate visualization transabdominally. FINDINGS: Uterus: The uterus is retroverted and measures 8.7 x 4.6 x 6.2 cm. The double wall endometrial thickness is 14 mm. The uterus is smooth in contour and has normal myometrial echogenicity. No visible fibroid. Adnexa: Both ovaries are visualized. There is normal color flow to the adnexa. There is no ovarian torsion. Small amount of free pelvic fluid. Right ovary measures 4.6 x 2.4 x 2.1 cm for a volume of 12.1 mL Left ovary measures 4.4 x 2.8 x 2.6 cm for a volume of 16.8 mL which includes a 2.1 cm corpus luteal cyst US/US pelvic and transvaginal IMPRESSION: No significant abnormality is seen. Electronically signed by: Hamilton Wheat MD 05/25/2024 02:50 PM EDT
== END 2024-05-25 13:17 | disposition home or self-care (01) ==
LOC: HO.US 13:16
PROVIDERS: PCP Internal Medicine; Visit Provider Obstetrics & Gynecology
DX: R10.2 Pelvic and perineal pain (principal); Z32.02 Encounter for pregnancy test, result negative
CPT/HCPCS: 0352U; 76830; 76856; 81003; 81025; 87491; 87591; 99212

== ENCOUNTER 2024-05-25 13:56 | Outpatient (AMB) | payer MEDICAID, SELFPAY ==
[2024-05-25 14:21] VITALS: BP 110/68; BMI 21.5
--- NOTE | 2024-05-25 14:21 | A.OFFVIS_ITS ---
Vital Signs 05/25/24 14:21 Height 5 ft 4 in Weight 125 lb BMI 21.5 BP 110/68 Intake Visit Reasons: US follow up per Information Interpreted: clinical only Allergies shrimp [SHRIMP] Allergy (Intermediate, Verified 05/25/24 14:21) SWELLING amoxicillin [AMOXICILLIN] Allergy (Unknown, Verified 05/25/24 14:21) HIVES Penicillins [PENICILLINS] Allergy (Unknown, Verified 05/25/24 14:21) HIVES Is last menstrual period known: Yes Last menstrual period: 05/07/24 Do you need a note to return to daycare/school/sports/work: No HPI Comments Details: Presenting complaining of left lower quadrant pain of 1/2 week's duration associated with vaginal discharge no nausea or vomiting no fever or chills no urinary or GI symptoms. 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 Sexual orientation: Straight/Heterosexual Gender identity: Female Female Reproductive History Menstrual Age of Menarche: 14 Duration of menses: 3-5 days Date of last menstrual period: 05/07/24 control method: none Total pregnancies: 7 Full term: 2 Review of Systems Const All systems reviewed & are unremarkable except as noted in HPI and below Physical Exam Vital Signs: Last Vital Signs BP 110/68 05/25/24 14:21 BMI result Body Mass Index 21.5 GI Inspection: Yes normal to inspection Palpation (GI): Soft to palpation, nontender and no guarding General: Yes no CVA tenderness External Female Exam: normal external appearance and normal appearance of the urethra Speculum Exam - Vagina: normal appearance of the vagina, normal palpation, no lesions and no masses Speculum Exam - Cervix: normal appearance of the cervix, normal palpation, no lesions, no masses and nontender Bimanual exam- vagina & uterus: normal bimanual exam, normal palpation, uterine size normal, normal palpation, uterine shape normal, No Cervical tenderness present and non-tender Bimanual Exam- Adnexa, other: normal adnexae Back/Spine/Pelvis Back: no CVA tenderness Assessment & Plan Assessment & Plan (1) Pelvic pain: Code(s): R10.2 - Pelvic and perineal pain Category: Medical Plan: Urine dip and test done in the office were both negative. GC and chlamydia taken and pelvic ultrasound ordered. Discussed with the patient the differential diagnosis of pelvic pain including but not limited to adnexal, uterine masses, pelvic infections (PID), GI the (Irritable bowel syndrome, diverticulitis, others), musculoskeletal, myofascial pain abdominal wall , adhesions, endometriosis, psychological and others causes. Instructions given the patient to schedule a 2 week ultrasound follow-up appointment. All questions answered, the patient verbalized understanding. Coding Level of Care Code Est Pt Level 3 (69340) Diagnoses Pelvic pain R10.2
== END 2024-05-25 14:32 | disposition home or self-care (01) ==
LOC: HO.HWS 13:56
PROVIDERS: PCP Internal Medicine; Visit Provider Obstetrics & Gynecology
DX: Z32.02 Encounter for pregnancy test, result negative (principal); R10.2 Pelvic and perineal pain
CPT/HCPCS: 99213

== ENCOUNTER 2024-05-25 14:40 | Outpatient (REF) | payer MEDICAID, SELFPAY ==
[2024-05-26 12:06] LABS: CT PCR NOT DETECTED (Not Detect.); NG PCR NOT DETECTED (Not Detect.)
[2024-05-26 13:39] LABS: Bacterial Vaginosis PCR POSITIVE (Negative); Candida Group PCR DETECTED (Not Detect); Candida glab krusei PCR NOT DETECTED (Not Detect); Trichomonas vaginalis PCR NOT DETECTED (Not Detect)
== END 2024-05-25 14:41 | disposition home or self-care (01) ==
LOC: HO.LAB 14:40
PROVIDERS: Visit Provider Obstetrics & Gynecology
DX: N89.8 Other specified noninflammatory disorders of vagina (principal); R10.2 Pelvic and perineal pain; Z20.2 Contact with and (suspected) exposure to infections with a predominantly sexual mode of transmission
CPT/HCPCS: 0352U; 87491; 87591

== ENCOUNTER 2024-05-31 14:55 | Outpatient (REF) | payer MEDICAID, SELFPAY ==
[2024-06-01 08:10] LABS: HBsAGNum1 0.31 S/CO (0.00-0.99); HIV AB/AG Nonreactive (Nonreactive); HIV Num 1 0.06 S/CO (0.00-0.99); Hepatitis B Surface Antigen Negative (Negative); ~HepC Num1 0.13 S/CO (0.00-0.79); ~Hepatitis C Antibody Nonreactive (Nonreactive)
[2024-06-01 08:16] LABS: Syphilis Screen Nonreactive (Nonreactive)
== END 2024-05-31 14:56 | disposition home or self-care (01) ==
LOC: HO.LAB 14:55
PROVIDERS: Visit Provider Obstetrics & Gynecology
DX: N76.0 Acute vaginitis (principal); B96.89 Other specified bacterial agents as the cause of diseases classified elsewhere; R10.2 Pelvic and perineal pain
CPT/HCPCS: 36415; 86780; 86803; 87340; 87389

== ENCOUNTER 2024-08-09 14:51 | Outpatient (REF) | payer MEDICAID, SELFPAY | END 2024-08-09 14:52 | disposition home or self-care (01) | LOC: HO.US 14:51 | PROVIDERS: PCP Internal Medicine; Visit Provider Obstetrics & Gynecology | DX: R10.2 Pelvic and perineal pain (principal) | CPT/HCPCS: 76830; 76856 ==

== ENCOUNTER 2024-08-15 12:33 | Outpatient (AMB) | payer MEDICAID, SELFPAY ==
--- NOTE | 2024-08-15 12:36 | A.OFFVIS_ITS ---
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 Sexual orientation: Straight/Heterosexual Gender identity: Female Female Reproductive History Menstrual Age of Menarche: 14 Duration of menses: 6-7 days Date of last menstrual period: 08/04/24 Total pregnancies: 7 Full term: 2 Review of Systems Const All systems reviewed & are unremarkable except as noted in HPI and below Card Reports as per HPI Resp Reports as per HPI GI Reports as per HPI and Reports no additional complaints Reports as per HPI Physical Exam Vital Signs: Last Vital Signs BP 88/60 L 08/15/24 12:39 Const General: cooperative, healthy appearing and comfortable Chest Chest palpation & inspection: normal inspection of the chest and normal palpation of entire chest wall Breast/axilla inspection: normal inspection of the breasts and normal inspection of the axillae Breast/axilla palpation: normal palpation of the breasts, normal palpation of the axillae and no axillary lymphadenopathy Resp Effort & Inspection: normal respiratory effort Auscultation: clear to auscultation bilaterally Percussion: percussion normal Cardio Palpation: normal PMI Rate: regular rate Rhythm: regular rhythm Heart sounds: no murmurs and no rubs Peripheral pulses: Peripheral pulses 2+ throughout GI Inspection: Yes normal to inspection Palpation (GI): Soft to palpation, nontender, no guarding, not rigid and No hepatosplenomegaly present Percussion: Yes normal to percussion Auscultation: normal bowel sounds Rectal Exam - Female: deferred General: Yes bladder normal to palpation External Female Exam: No lesion Speculum Exam - Vagina: normal appearance of the vagina, normal palpation, normal vaginal discharge and not erythematous Speculum Exam - Cervix: normal appearance of the cervix and normal palpation Bimanual exam- vagina & uterus: normal bimanual exam, normal palpation, uterine size normal, bladder normal to palpation, consistency normal and normal palpation Bimanual Exam- Adnexa, other: normal adnexae, no masses and no tenderness Assessment & Plan Assessment & Plan (1) Well woman exam: Code(s): Z01.419 - Encounter for gynecological examination (general) (routine) without abnormal findings Category: Medical Plan: Cotesting not indicated this year. Counseled the patient about the recommended dietary allowance of 1000 mg of Calcium & 600 IU of vitamin D. The patient was instructed to perform monthly self-breast exams and to schedule an annual exam in a year; All questions answered and the patient verbalized understanding. Instructed the patient to schedule annual exam in a year (2) Dysmenorrhea: Code(s): N94.6 - Dysmenorrhea, unspecified Category: Medical Plan: Discussed with the patient the possible causes of dysmenorrhea including but not limited to cervical stenosis, adenomyosis, endometriosis and other structural abnormalities. Options of treatment discussed with the patient include nonsteroidal anti-inflammatory drugs, control pills cyclic or continue with way or Mirena IUD. All pros and cons, risks and benefits of each were discussed with the patient, the patient decided to proceed with control pills continuous way, so a more detailed discussion re: control pills including mechanism of action, benefits (regular menses, less dysmenorrhea, less risk of ovarian cancer, ...), risks ( DVT, PE, Strokes, NH, increased breast ca, others). Instructions were given to use a back- up method for contraception x 1st 2 weeks, and to schedule a 3 months appointment for blood pressure check Medications: New L norgest/e.estradiol-e.estrad 0.15 mg-30 mcg (84)/10 mcg (7) 1 tab PO DAILY 84 days 84 ea 0RF Coding Level of Care Code Est Pt Level 3 (09334) Est Pt Prev Care 18-39y(87666) Diagnoses Well woman exam Z01.419 Dysmenorrhea N94.6
[2024-08-15 12:39] VITALS: BP 88/60
== END 2024-08-15 13:30 | disposition home or self-care (01) ==
LOC: HO.HWS 12:33
PROVIDERS: PCP Internal Medicine; Visit Provider Obstetrics & Gynecology
DX: Z01.419 Encounter for gynecological examination (general) (routine) without abnormal findings (principal); N94.6 Dysmenorrhea, unspecified
CPT/HCPCS: 99213; 99395

== ENCOUNTER → 2024-08-15 12:33 | Outpatient (BNVA) | payer MEDICAID, SELFPAY | PROVIDERS: PCP Internal Medicine; Visit Provider Obstetrics & Gynecology | DX: Z01.419 Encounter for gynecological examination (general) (routine) without abnormal findings (principal); N94.6 Dysmenorrhea, unspecified | CPT/HCPCS: 99212; 99395 ==

== ENCOUNTER 2025-03-22 08:36 | Outpatient (AMB) | payer MEDICAID, SELFPAY ==
[2025-03-22 08:42] VITALS: BP 102/66; BMI 21.3
--- NOTE | 2025-03-22 08:42 | A.OFFVIS_ITS ---
Vital Signs 03/22/25 08:42 Height 5 ft 4 in Weight 124 lb BMI 21.3 BP 102/66 Intake Visit Reasons: Perianal Cyst Continuity Director Required: No Information Interpreted: non-clinical & clinical Radiation Officer: Radiation Officer Present (Gisselle MARTINO) Accompanied by: Self / Same As Patient Allergies shrimp (SHRIMP) Allergy (Intermediate, Verified 03/22/25 08:47) SWELLING amoxicillin (AMOXICILLIN) Allergy (Unknown, Verified 03/22/25 08:47) HIVES Penicillins (PENICILLINS) Allergy (Unknown, Verified 03/22/25 08:47) HIVES Is last menstrual period known: Yes HPI Comments Details: Presenting complaining of a week history of perianal cyst . No tenderness or pain no discharge or bleeding. 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 Sexual orientation: Straight/Heterosexual Gender identity: Female Female Reproductive History Menstrual Age of Menarche: 14 Review of Systems Const All systems reviewed & are unremarkable except as noted in HPI and below Physical Exam Vital Signs: Last Vital Signs BP 102/66 03/22/25 08:42 BMI result Body Mass Index 21.3 General: Yes no CVA tenderness External Female Exam: normal external appearance, normal appearance of the urethra and other (Right perianal 0.2 cm cyst) Speculum Exam - Vagina: normal appearance of the vagina, normal palpation, no lesions and no masses Speculum Exam - Cervix: normal appearance of the cervix, normal palpation, no lesions, no masses and nontender Bimanual exam- vagina & uterus: normal bimanual exam, normal palpation, uterine size normal, normal palpation, uterine shape normal, No Cervical tenderness present and non-tender Bimanual Exam- Adnexa, other: normal adnexae Back/Spine/Pelvis Back: no CVA tenderness Assessment & Plan Assessment & Plan (1) Perianal cyst: Code(s): K62.89 - Other specified diseases of anus and rectum Category: Medical Plan: Discussed with the patient the finding on physical exam showing a right perianal cyst nontender no evidence of infection or discharge. Instructions given the patient to call in case symptoms persist or get worse then will treat accordingly. All questions answered, the patient verbalized understanding. Coding Level of Care Code Est Pt Level 3 (64716) Diagnoses Perianal cyst K62.89
--- OUTSIDE RECORDS SUMMARY | 2025-03-22 09:01 | XMS_ITS | Encounter Summary ---
Author Organization [employer] Address [address] [place] [address] Care Team Providers Care Rn Baby Name Role Phone [facility] Primary Care Provider [phone] Encounter Details Date Type Department Care Team ([facility] st Contact Info) Description 03/10/2024 Telephone [facility] [address] [place], [place] [phone] [facility] [address] [place] [address] Social History Tobacco Use Types Packs/Day Years Used Date Smoking Tobacco: Every Day Cigarettes Smokeless Tobacco: Never Alcohol Use Standard Drinks/Week Comments Never 0 (1 standard drink = 0.6 oz pur e alcohol) Depression Answer Date Recorded Patient Health Questionnaire-9 Score 0 11/12/2022 Housing Stability Answer Date Recorded What is your housing situation today? I have richard bryant 08/02/[address] you li ve. Do you have problems with any of the following? None of the above 08/02/2023 Food Insecurity Answer Date Recorded Within the past 12 months, y ou worried that your food would run out before you got money to buy more: Never True 08/02/2023 Within the past 12 months,th e food you bought just didn't last and you didn't have enough money to get more: Never True 02/2023 Transportation Answer Date Recorded In the past 12 months, has l ack of transportation kept you from medical appts, meetings, work or from getting things needed for daily living? No 08/02/2023 Utilities Answer Date Recorded In the past 12 months, has t he electric, gas, oil or water company threatened to shut off services in your home? No 08/02/2023 Depression Answer Date Recorded Patient Health Questionnaire-2 Score 0 11/12/2022 Comments Unknown Sex and Gender Information Value Date Recorded Sex Assigned at Female 07/27/2022 10:15 AM EDT Legal Sex Female 10:15 AM EDT Gender Identity Female 07/27/2022 10:15 AM EDT Sexual Orientation Don't know 07/27/2022 10 :15 AM EDT documented as of this encounter Plan of Treatment Not on file documented as of this encounter Visit Diagnoses Not on filedocumented in this encounter Additional Health Concerns Assessment Noted Time PHQ-9 Depression Total Score: 0 11/12/19 23 11:34 AM EST documented as of this encounter Care Teams Rn Baby Relationship Specialty Start Date End Date Remedios Hercules FNP [address] [place] [id number] PCP - General Family Medicine 05/24/22 documented as of this encounter
== END 2025-03-22 09:08 | disposition home or self-care (01) ==
LOC: HO.HWS 08:36
PROVIDERS: PCP Internal Medicine; Visit Provider Obstetrics & Gynecology
DX: K62.89 Other specified diseases of anus and rectum (principal)
CPT/HCPCS: 99213

== ENCOUNTER → 2025-03-22 08:36 | Outpatient (BNVA) | payer MEDICAID, SELFPAY | PROVIDERS: PCP Internal Medicine; Visit Provider Obstetrics & Gynecology | DX: G96.191 Perineural cyst (principal); K62.89 Other specified diseases of anus and rectum | CPT/HCPCS: 99212 ==

== ENCOUNTER 2025-06-18 02:22 | Emergency (ER) | payer MEDICAID, SELFPAY ==
--- NOTE | ~2025-06-18 | CT_ITS ---
CLINICAL HISTORY: RLQ pain CT abdomen and pelvis with contrast Comparison: None provided Findings: No consolidation or effusion. The liver, gallbladder, spleen, adrenal glands and pancreas are unremarkable. Kidneys, ureters and bladder are normal. The appendix is within normal limits. Fecal retention throughout the colon. No bowel obstruction or free air. Reference coronal image fifty-eight and sagittal 54, there is a low-density region along the inferior uterine body. Adnexa demonstrate no definite acute process. No acute osseous finding. Impression: The appendix appears within normal limits. Irregular low-density along the inferior uterine body as detailed, nonspecific. Fibroid or adenomyosis possible. This document has been electronically signed by: Emmanuel English MD on 06/18/2025 05:32:58
[2025-06-18 02:25] VITALS: BP 124/69; PULSE 89; RESP 16; TEMP 36.2; O2SAT 100; BMI 21.5
[2025-06-18 03:01] LABS: Hematocrit 34.6 % (37.0-47.0); Hemoglobin 11.7 g/dl (12.0-16.0); Imm Gran Abs Auto 0.02 X10*3/uL (0.00-0.03); Imm Gran Pct Auto 0.2 % (0.0-0.4); Lymphocytes Absolute Auto 3.4 X10*3/uL (1.2-4.9); MANUAL DIFF FLAG NO; Mean Corpuscular HGB Conc 33.8 g/dl (31.0-35.0); Mean Corpuscular Hemoglobin 30.7 pg (27.0-33.0); Mean Corpuscular Volume 90.8 fL (80.0-98.0); NRBC Abs Auto 0.000 X10*3/uL (0.0-0.012); NRBC Pct Auto 0.0 /100WBC (0.0-0.2); Platelet Count 202 X10*3/uL (160-400); Red Blood Count 3.81 X10*6/uL (4.20-5.50); White Blood Count 10.1 X10*3/uL (4.8-10.8)
--- OUTSIDE RECORDS SUMMARY | 2025-06-18 03:01 | XMS_ITS | Encounter Summary ---
Author Organization [employer] Address [address] [facility] 7t [place] [address] Care Team Providers Care Supervisor Publications Name Role Phone [facility] Primary Care Provider [phone] Reason for Visit * Reason Onset Date Comments Nurse Triage 2024 Encounter Details Date Type Department Care Team ([facility] st Contact Info) Description 2024 Telephone [facility] [address] [place] [address] [facility], [facility] [address] [place] [address] Nurse Triage Social History Tobacco Use Types Packs/Day Years Used Date Smoking Tobacco: Every Day Cigarettes Smokeless Tobacco: Never Alcohol Use Standard Drinks/Week Comments Never 0 (1 standard drink = 0.6 oz pur e alcohol) Depression Answer Date Recorded Patient Health Questionnaire-9 Score 0 11/12/2022 Housing Stability Answer Date Recorded What is your housing situation today? I have richardduyen bryant 08/02/[address] you [...] AM EDT documented as of this encounter Miscellaneous Notes * Telephone Encounter - Lashay Graham RN - 2024 3:34 PM EST Call returned to [facility] to triage below. Reports having intermittent back pain x 2 months. Per pt its mid to upper. Per pt occasionally has chest pain. Denies any recent injury o r fall. Pt using OTC meds with mild relief. Pt denies pain radiating to arms or legs. No SOB. Per pt hashad similar pain in past. Pt offered WIC today or tomorrow. Pt agrees to visit on Wednesday with PCP as has appt for child as well. Reviewed home care advise, ER precautions and reasons to call back. Protocol Used: Back Pain (Adult) Protocol-Based Disposition: See in Office or Video Visit within 3 Days Future Appointments Date Time Provider Department Center 11/29/2024 11:00 AM [facility] Insurance verified as active per [facility]. Video visit offer not recorded Positive Triage Question: * Moderate back pain (e.g., interferes with normal activities) and present > 3 days * All higher-acuity triage questions were negative Care Advice Discussed: * Reassurance and Education - Back Pain * Cold or Heat * Pain Medicines * Reasons To Call Back - Fever occurs - Numbness or weakness occurs - Loss of control of your bladder or bowel - Pain begins to shoot into the leg - You become worse * Telephone Encounter - Guilherme Logan 2024 3:10 PM EST Symptom: Back Pain - Not From Injury Outcome: Transfer to a nurse or provider NOW! Reason: Age over 30: sudden AND severe upper back pain The caller accepted this outcome. Contact pt at [phone] documented in this encounter Plan of Treatment Not on file documented as of this encounter Visit Diagnoses Not on filedocumented in this encounter Additional Health Concerns Assessment Noted Time PHQ-9 Depression Total Score: 0 11/12/19 23 11:34 AM EST documented as of this encounter Care Teams Supervisor Publications Relationship Specialty Start Date End Date Remedios Hercules FNP [address] [place] [id number] PCP - General Family Medicine 05/24/22 documented as of this encounter
--- OUTSIDE RECORDS SUMMARY | 2025-06-18 03:01 | XMS_ITS | Encounter Summary ---
Author Organization [employer] Address [address] [facility] 7t [place] [address] Care Team Providers Care Dj Instructor Name Role Phone [facility] Primary Care Provider [phone] Reason for Visit * Reason Comments Med Refill Encounter Details Date Type Department Care Team ([facility] st Contact Info) Description 09/11/2024 Refill [facility] [address] [place] [address] [facility] [address] [place] [address] Social History Tobacco Use Types Packs/Day Years [...] documented as of this encounter Care Teams Dj Instructor Relationship Specialty Start Date End Date Remedios Hercules FNP [address] [place] [id number] PCP - General Family Medicine 05/24/22 documented as of this encounter
--- OUTSIDE RECORDS SUMMARY | 2025-06-18 03:01 | XMS_ITS | Clinical Summary ---
Author Organization [employer] Address [address] [facility] [address]t [place] [address] Care Team Providers Care Hand Tube Winder Name Role Phone Remedios Hercules CLAIMS COLLECTOR Primary Care Provider [phone] Allergies Active Allergy Reactions Criticality Noted Date Comments Amoxicillin 08/15/2022 Penicillins 03/11/2017 Medications Elastic Bandages & Supports (Splint Wrist Brace/Left-Right) misc Wear at bedtime 9 Active nicotine polacrilex (Nicorette) 2 MG gum Take 2 mg by mouth every 2 (two) hours. 2 Active cetirizine (ZyrTEC) 10 MG tabletIndications :Ear itching Take 1 tablet (10 mg) by mouth in the morning. 90 tablet 2 3 Active omeprazole (PriLOSEC) [address] capsuleIndication s:Heartburn TAKE 1 CAPSULE ONCE A DAY 30 MINUTES BEFORE BREAKFAST. DO NOT CRUSH OR CHEW. 90 capsule 1 3 Active baclofen (Lioresal) 10 MG tabletIndications :Strain of cervical portion of left trapezius muscle Take 1 tablet (10 mg) by mouth 2 times daily for 14 days. 28 tablet 3 Active nicotine (Nicoderm CQ) 14 MG/24HR patchIndications: Cigarette nicotine dependence without complication Place 1 patch on the skin 1 (one) time each day at the same time. Do not start before July 06, 2023. 30 patch 3 Active Diclofenac Sodium (Voltaren) 1 % gelIndications:Mu scle spasm of back Apply 2 g topically if needed in the morning and at bedtime (muscle pain). 100 g 3 3 Active buPROPion SR (Wellbutrin SR) 100 MG 12 hr tabletIndications :Cigarette nicotine dependence without complication TAKE 1 TABLET BY MOUTH TWICE A DAY DONT CRUSH OR CHEW OR SPLIT 60 tablet 1 3 Active polyethylene glycol, PEG, 3350 (GaviLAX) 17 GM/SCOOP powderIndications :Constipation, unspecified constipation type MIX 17 GRAMS WITH 8 OZ. WATER, JUICE, SODA, COFFEE OR TEA AND DRINK DAILY NEEDED 238 g 3 4 Active ibuprofen 600 MG tabletIndications :Muscle spasm of back Take 1 tablet (600 mg) by mouth every 8 (eight) hours if needed for mild pain. 30 tablet 3 5 Active hydrOXYzine HCl (Atarax) 25 MG tabletIndications :Anxiety Take 1-2 tablets by oral route as needed up to four times daily for anxiety 90 tablet 1 5 Active cholecalciferol VITAMIN D (Vitamin D-3) 50 MCG (1999 UT) capsule TAKE 1 CAPSULE (50 MCG) BY MOUTH IN THE MORNING 90 capsule 5 Active cyclobenzaprine (Flexeril) 5 MG tabletIndications :Muscle spasm of back TAKE 1 TABLET BY MOUTH AT BEDTIME NEEDED FOR MUSCLE SPASM 30 tablet 5 Active Active Problems Problem Noted Date Diagnosed Date Cigarette nicotine dependence without complicati on 06/07/2023 Assessment & Plan (06/07/2023 8:27 PM EDT): Interested on quitting smoking. Agreed to start Wellbutrin 100 mg bid as smoking is related to anxiety situations, she will fu with PCP. Start Nicotine patch 21 mg for up to 6w, can move to 14 mg in the next week if she doesn't tolerates the 21mg Fu with PCP in 1m Intercostal pain 06/07/2023 Assessment & Plan (06/07/2023 8:28 PM EDT): It seems to be muscular. Use Diclofenac gel prn and Tylenol Order Xrays ribs and Lungs as she has hx lung nodules, may need fu CT scan. Migraine 07/01/2021 Multiple nodules of lung 07/01/2021 Hemorrhoids 03/03/2018 Vitamin D deficiency 01/03/2018 Encounters Date Type Department Care Team Description 05/04/2025 Refill [facility] [address] [place] [address] [place], Remedios, CLAIMS COLLECTOR Muscle spasm of back from Last 3 Months Immunizations Immunization Administration Dates Next Due DTP 06/13/1998, 7,05/28/1995,12/26,11/25/1993 HPV, Quadrivalent 12/09/2009,08/06/2008,06/09/20 07 Hep A, ped/adol, 2 dose 12/09/2009,10/22/2008 Hep B, Adolescent or Pediatric 08/15/1999,1997,10/28/1996 Hep B, adult 12/31/2015,01/21/2015,08/03/2013 Hib (HbOC) 10/28/1996,12/26/1994,11/25/1993 IPV 04/27/1998, 5,12/26/1994,11/25 Influenza injectable quadriv alent IIV4 with preservative 11/25/2017 Influenza, IIV3, injectable 08/06/2007 MMR 04/27/1998,11/25/1993 Meningococcal MCV4P ACYW-135 10/22/2008 TD (adult), 2 Lf tetanus tox oid, preservative free, adsorbed 01/29/2006 Tdap 06/08/2016,04/20/2014 Varicella 06/09/2007,06/13/1998 Social History Tobacco Use Types Packs/Day Years Used Date Smoking Tobacco: Every Day Cigarettes Passive Smoke Exposure: Current Smokeless Tobacco: Never Tobacco Cessation:Ready to Q uit: Not Asked; Counseling Given: Not Answered Alcohol Use Standard Drinks/Week Comments Never 0 [...] the past 12 months, has t he [employer], gas, oil or water company threatened to [...] Don't know 07/27/2022 10 :15 AM EDT Last Filed Vital Signs Vital Sign Reading Time Taken Comments Blood Pressure 126/75 11/29/2024 11:16 AM EST Pulse 84 11/29/2024 11:16 AM EST Temperature 36.4 C (97.6 F) 11/29/2024 11:16 AM EST Respiratory Rate 16 11/29/2024 11:16 AM EST Oxygen Saturation 99% 06/07/2023 3:09 PM EDT Inhaled Oxygen Concentration - - Weight 58.2 kg (128 lb 3.2 oz) 11/29/2024 11:16 AM EST Height 162.6 cm (5' 4 ) 11/29/2024 11:16 AM EST Body Mass Index 22.01 11/29/2024 11:16 AM EST Plan of Treatment Health Maintenance Due Date Last Done Comments Lipid Panel 1992 Disability Screening 1992 Alcohol/Substance Use Screening 2004 Family Planning (PISQ) 11/28/2007 Pneumococcal Vaccine: Pediatrics (0 to 5 Years) and At-Risk Patients (6 to 49) Years (1 of 2 - PCV) 11/28/2011 Pap Smear 2013 Cervical Cancer Screening 2022 HPV/Cotest 2022 Depression Screening 11/12/2023 11/12/2022, 11/12/19 23 SDOH Screening 11/12/2023 11/12/2022 COVID-19 Vaccine ( season) 2025 Influenza Vaccine (#1) 2025 11/25/2017, 2006 Tobacco Screening 11/29/2025 11/29/2024 DTaP/Tdap/Td Vaccines (8 - Td or Tdap) 06/08/2026 06/08/2016, 04/20/2014, 01/29/2006, Additional history exists Zoster Vaccines (1 of 2) 2042 RSV Patients and Patients Aged 60 years or older (1 - 1-dose 75+ series) 11/28/2067 HIB Vaccines Completed 10/28/1996, 09/1994, 11/25/1993 IPV Vaccines Completed 04/27/1998, 09/1994, 12/26/1994, Additional history exists Meningococcal Vaccine Aged Out 10/22/2008 No candi john eligible based on patient's age to complete this topic HPV Vaccines Completed 12/09/2009, 07/28, 06/09/2007 Hepatitis A Vaccines Completed 12/09/2009, 10/22/19 09 Hepatitis B Vaccines Completed 12/31/2015, 01/21/2015, 08/03/2013, Additional history exists HIV Screening Completed 01/26/2022 Hepatitis C Screening Completed 01/26/2022 Meningococcal B Vaccine Aged Out No l onger eligible based on patient's age to complete this topic RSV under 20 months Aged Out No longe r eligible based on patient's age to complete this topic Rotavirus Vaccines Aged Out No longer eligible based on patient's age to complete this topic Procedures Procedure Name Priority Date/Time Associated Diagnosis Comments ZZZ HISTORICAL HEPATITIS C AB W/REFL TO HCV RNA, QN, PCR Routine 01/26/2022 12:00 AM EDT HIV 1/2 ANTIGEN/ANTIBODY, FOURTH GENERATION W/RFL Routine 01/26/2022 12:00 AM EDT from Last 3 Months or Most Recently Relevant to Health Maintenance Results * HEPATITIS C AB W/REFL TO HCV RNA, QN, PCR (01/26/2022 12:00 AM EDT) HEPATITIS C ANTIBODY NON-REACT APRIL NON-REACT APRIL [facility] INDEX 0.01 <1.00 [facility] Comment: HCV antibody was non-reactive. There is no laboratory evidence of HCV infection. In most cases, no further action is required. However, if recent HCV exposure is suspected, a test for HCV RNA (test code 96738) is suggested. For additional information please refer to http://[employer]/faq/QJU24h6 (This link is being provided for informational/ educational purposes only.) 01/26/2022 [employer] HISTORICAL/NON ORDERABLE LABS Final Result [facility] [address] [place] [address], * HIV 1/2 ANTIGEN/ANTIBODY,FOURTH GENERATION W/RFL (01/26/2022 12:00 AM EDT) HIV-1/2 ANTIGEN AND ANTIBODIES, 4TH GENERATION W/ REFLEX NON-REACT APRIL NON-REACT APRIL [facility] Comment: HIV-1 antigen and HIV-1/HIV-2 antibodies were not detected. There is no laboratory evidence of HIV infection. PLEASE NOTE: This information has been disclosed to you from records whose confidentiality may be protected by state law. If your state requires such protection, then the state law prohibits you from making any further disclosure of the information without the specific written consent of the person to whom it pertains, or as otherwise permitted by law. A general authorization for the release of medical or other information is NOT sufficient for this purpose. For additional information please refer to http://[employer]/faq/GFT513 (This link is being provided for informational/ educational purposes only.) The performance of this assay has not been clinically validated in patients less than 2 years old. 01/26/2022 [employer] LAB BLOOD ORDERABLES Final Res ult [facility] [address] from Last 3 Months or Most Recently Relevant to Health Maintenance Insurance C3 * Guarantor: Larry Santiago Philipford Account Type Relation to Patient Date of Phone Billing Address Personal/Family Self [address] Care Teams Hand Tube Winder Relationship Specialty Start Date End Date Remedios Hercules FNP [address] [place] [id number] PCP - General Family Medicine 05/24/22
--- OUTSIDE RECORDS SUMMARY | 2025-06-18 03:01 | XMS_ITS | Encounter Summary ---
Author Organization [facility] [employer] Address [address] 7[address] [place] [address] Care Team Providers Care Respiratory Care Assistant Name Role Phone [place] [facility] Primary Care Provider [phone] Encounter Details Date Type Department Care Team ([facility] st Contact Info) Description 03/10/2024 Telephone [facility] [address] [place], [place] [phone] [facility] [address] [place] [address] Social History Tobacco Use Types Packs/Day Years [...] documented as of this encounter Care Teams Respiratory Care Assistant Relationship Specialty Start Date End Date Remedios Hercules FNP [address] [place] [phone] PCP - General Family Medicine 05/24/22 documented as of this encounter
[2025-06-18 03:04] LABS: Appearance Urine Clear; Glucose Urine UA Negative (Negative); PH 6.0 (5.0-9.0); Specific Gravity - Urine >= 1.030 (1.005-1.025)
[2025-06-18 03:06] LABS: UPreg QC Valid YES
[2025-06-18 03:17] LABS: Alanine Aminotransferase 15 U/L (0-31); Albumin Level 4.2 g/dL (3.5-5.0); Alkaline Phosphatase 63 U/L (39-117); Anion Gap 7 (12-20); Aspartate Amino Transferase 17 U/L (5-31); Blood Urea Nitrogen 20 mg/dL (9-16); Calcium 8.9 mg/dL (8.4-10.2); Carbon Dioxide 29 mmol/L (22-29); Chloride 109 mmol/L (96-108); Creatinine Clr Calc Pharmacy 96.8; Estimated Glomerular Filt Rate > 60; Lipase 26 U/L (8-78); Potassium 3.9 mmol/L (3.3-5.1); Sodium 141 mmol/L (135-145); Total Protein 6.6 g/dL (6.5-8.0)
[2025-06-18] MEDS: Lactated Ringers 1,000 ML 999 ML IV (04:06)
[2025-06-18] MEDS: iohexoL 350 MG/ML 100 ML INFUS..BTL 85 ML IV (04:47)
--- NOTE | 2025-06-18 06:05 | ED_ITS ---
HPI - Abdominal Pain General Chief Complaint: Abdominal Pain Stated Complaint: Abdominal/Back Pain Time Seen by Provider: 06/18/25 03:14 Source: patient Mode of arrival: ambulatory Limitations: no limitations History of Present Illness ED Provider: Dr. Alia Dudley HPI narrative: 34-year-old female with history of ovarian cysts presenting with right lower quadrant abdominal pain radiating to the center of her abdomen and into the pelvis ongoing for the last several hours this afternoon. Admits to associated nausea but no vomiting. Describes poor appetite associated with this. No reported fever. She denies associated dysuria, hematuria, vaginal bleeding or discharge, bowel changes. She had a normal bowel movement earlier in the day without hematochezia or melena. No known sick contacts or questionable food intake. No history of abdominal surgeries. Related Data Home Medications ?Medication ?Instructions ?Recorded ?Confirmed cholecalciferol (vitamin D3) 25 25 mcg PO DAILY mcg (1,000 unit) capsule cyanocobalamin (vitamin B-12) 1,000 mcg PO DAILY 02/03 1,000 mcg capsule Previous Rx's ?Medication ?Instructions ?Recorded ibuprofen 600 mg tablet 600 mg PO Q8H PRN fever or p ain 08/17/22 #20 tabs dicyclomine 20 mg tablet 20 mg PO TID #10 tabs ondansetron 4 mg disintegrating 4 mg PO Q8H PRN nausea and 06/18/25 tablet vomiting #10 tabs Allergies Allergy/AdvReac Type Severity Reaction Status Date / Time shrimp (SHRIMP) Allergy Intermediate SWELLING Verified 06/18/25 02:38 amoxicillin (AMOXICILLIN) Allergy Unknown HIVES Verified 06/18/25 02:38 Penicillins (PENICILLINS) Allergy Unknown HIVES Verified 06/18/25 02:38 Review of Systems Review of Systems as per HPI, full review of systems performed and negative but for the above mentioned pertinent positives and negatives. 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 SKIN: Normal skin color for ethnicity, warm, dry, no rashes noted. HEENT:? Normocephalic, atraumatic, no stridor, dry mucous membranes, dentition intact, EOMI. NECK: Soft, supple, full ROM, midline structures nontender, no step-offs, no deformities, no lymphadenopathy. CHEST: Heart regular tachycardia, no murmurs, symmetric chest rise and fall. PULMONARY: Clear to auscultation bilaterally, diminished at the bases, no labored breathing, no wheezes/rhales/rhonchi. ABDOMINAL: Soft, nondistended, Right lower quadrant tenderness to palpation with voluntary guarding, quiet bowel sounds in all quadrants. : Deferred. MUSCULOSKELETAL: Normal tone, full range of motion, no deformities, no peripheral edema. NEURO: Alert and oriented x3, CN II through XII intact, equal strength and sensation bilateral upper and lower extremities, no focal neurologic deficits.? PSYCHIATRIC: Flat affect, fluid speech, good eye contact and appropriate demeanor. Vital Signs: Vital Signs - 24 hr 06/18/25 02:25 Temperature 97.2 F Pulse Rate 89 Respiratory Rate 16 Blood Pressure 124/69 Pulse Oximetry 100 Oxygen Delivery Method Room Air BMI result Body Mass Index 21.5 Medical Decision Making Medical Decision Making MDM Narrative: This patient presents today with a chief complaint of abdominal pain. Differential diagnosis for this patient is broad.? It includes appendicitis, cholecystitis, bowel obstruction, diverticulitis, peptic ulcer disease, pyelonephritis, vascular pathology, among many others.? A broad-based workup based on history and physical examination was obtained. ?Givee the location of her pain and nature of pain radiating from periumbilical area to RLQ, will add on CT abd/pel r/o appy. Patient was given toradol for pain control. ? CT does not show evidence of appendicitis. Patient is feeling improved after IV Zofran, Toradol and p.o. Bentyl. Using shared decision making, plan for discharge home to follow-up with primary care and/or specialist. Patient understands and agrees with plan for discharge. Discharged home in stable condition. Differential Diagnosis Differential Diagnoses: The differential diagnosis associated with the presentation includes (as above) Admission/Observation Consideration of admission/observation: Escalation of care including admission/observation considered Lab Data MDM Lab Attestation statement: I reviewed the patient's lab results. 06/18/25 02:54 06/18/25 02:54 Labs: Lab Results 06/18/25 Range/Units 02:54 WBC 10.1 (4.8-10.8) X10*3/uL RBC 3.81 L (4.20-5.50) X10*6/uL Hgb 11.7 L (12.0-16.0) g/dl Hct 34.6 L (37.0-47.0) % MCV 90.8 (80.0-98.0) fL MCH 30.7 (27.0-33.0) pg MCHC 33.8 (31.0-35.0) g/dl RDW 13.2 (11.0-16.0) % Plt Count 202 (160-400) X10*3/uL MPV 9.8 (9.4-12.3) fL Immature Gran % (Auto) 0.2 (0.0-0.4) % Neut % (Auto) 59.8 (45-73) % Lymph % (Auto) 33.9 (20-40) % [place] % (Auto) 4.7 (2-11) % Eos % (Auto) 1.1 (0-4) % Baso % (Auto) 0.3 (0-2) % Lymph # (Auto) 3.4 (1.2-4.9) X10*3/uL [place] # (Auto) 0.5 (0.1-1.2) X10*3/uL Eos # (Auto) 0.1 (0.0-0.4) X10*3/uL Baso # (Auto) 0.0 (0.0-0.2) X10*3/uL Abs Immat Gran (auto) 0.02 (0.00-0.03) X10*3/uL Absolute Neuts (auto) 6.0 (2.0-8.3) x10*3/uL Absolute Nucleated RBC 0.000 (0.0-0.012) X10*3/uL Nucleated RBC % (auto) 0.0 (0.0-0.2) /100WBC Sodium 141 (135-145) mmol/L Potassium 3.9 (3.3-5.1) mmol/L Chloride 109 H (96-108) mmol/L Carbon Dioxide 29 (22-29) mmol/L Anion Gap 7 L (12-20) BUN 20 H (9-16) mg/dL Creatinine 0.72 (0.5-1.4) mg/dL Estim Creat Clear Calc 96.8 Estimated GFR > 60 Random Glucose 99 (60-115) mg/dL Calcium 8.9 (8.4-10.2) mg/dL Total Bilirubin 0.2 (0.0-1.0) mg/dL AST 17 (5-31) U/L ALT 15 (0-31) U/L Alkaline Phosphatase 63 (39-117) U/L Total Protein 6.6 (6.5-8.0) g/dL Albumin 4.2 (3.5-5.0) g/dL Lipase 26 (8-78) U/L Urine Color Yellow Urine Appearance Clear Urine pH 6.0 (5.0-9.0) Ur Specific [place] >= 1.030 H (1.005-1.025) Urine Protein Negative (Neg-Trace) mg/dL Urine Glucose (UA) Negative (Negative) mg/dL Urine Ketones Negative (Negative) mg/dL Urine Blood Negative (Negative) Urine Nitrite Negative (Negative) Ur Leukocyte Esterase Negative (Negative) Urine Test NEGATIVE (NEGATIVE) Radiology Impression Discussion of test interpretation with radiology: I have reviewed the radiologist's reading. Radiologist Impression: CT abdomen and pelvis with contrast Comparison: None provided Findings: No consolidation or effusion. The liver, gallbladder, spleen, adrenal glands and pancreas are unremarkable. Kidneys, ureters and bladder are normal. The appendix is within normal limits. Fecal retention throughout the colon. No bowel obstruction or free air. Reference coronal image fifty-eight and sagittal 54, there is a low-density region along the inferior uterine body. Adnexa demonstrate no definite acute process. No acute osseous finding. Impression: The appendix appears within normal limits. Irregular low-density along the inferior uterine body as detailed, nonspecific. Fibroid or adenomyosis possible. Prescription Management I considered prescription management with: Pain Medication Medications Administered Discontinued Medications Generic Name Dose Route Start Last Admin Trade Name Freq PRN Reason Stop Dose Admin Lactated Ringer's 1,000 mls @ 999 mls/hr 06/18/25 03:48 06/18/25 05:24 Lr IV 06/18/25 04:48 Infused .Q1H1M ONE Infusion Iohexol 85 ml 06/18/25 04:47 06/18/25 04:47 Iohexol 350 Mg/Ml 100 Ml Infus..Btl IV 06/18/25 04:48 85 ml ONCE ONE Administration Ketorolac Tromethamine 15 mg 06/18/25 03:48 06/18/25 04:06 Ketorolac Tromethamine 15 Mg/Ml Vial IVPUSH 06/18/25 03:49 15 mg ONCE ONE Administration Ondansetron HCl 4 mg 06/18/25 03:48 06/18/25 04:06 Ondansetron Hcl 4 Mg/2 Ml Vial IVPUSH 06/18/25 03:49 4 mg ONCE ONE Administration Discharge Plan Discharge Clinical Impression: Pelvic pain Patient Disposition: Home, Self-Care Instructions: Pelvic Pain in Women (ED) Additional Instructions: DIAGNOSIS & TREATMENT: You were seen in the Emergency Department for your abdominal pain. We performed [laboratory work and a CT scan of your abdomen and pelvis] which did not reveal any acute abnormalities that would explain your symptoms. FURTHER CARE: We have not found any emergent physical exam or lab abnormalities that would require admission to the hospital today. Many people who come to the ER with abdominal pain do not leave with a specific diagnosis at the end of their visit. In the Emergency Department we try to make sure that there is no emergent problem that needs surgery or antibiotics right now. This does not mean that your evaluation is complete--please be sure to follow up with your regular doctor as additional testing as an outpatient may be indicated Please be certain to drink plenty of fluids over the next several. You should advance your diet as tolerated. You may wish to start with the BRAT diet (bananas, rice, applesauce, toast). WHEN YOU SHOULD BE SEEN NEXT: Please follow-up with your primary care provider within the next 2-3 days for reevaluation of your symptoms. WHEN TO RETURN TO THE ED: Monitor your symptoms closely and return to the emergency department immediately for any new/worsening symptoms, worsening abdominal pain, pain which changes location (particularly if it moved to the right lower quadrant), nausea, vomiting, blood in your stool, black/tarry stools, chest pain, shortness of breath, fevers, chills, night sweats, you are unable to arrange follow-up care, or any other concerning symptoms. Prescriptions: New dicyclomine 20 mg tablet 20 mg PO TID Qty: 10 0RF ondansetron 4 mg tablet,disintegrating 4 mg PO Q8H PRN (Reason: nausea and vomiting) Qty: 10 0RF No Action ibuprofen 600 mg tablet 600 mg PO Q8H PRN (Reason: fever or pain) Qty: 20 0RF cholecalciferol (vitamin D3) 25 mcg (1,000 unit) capsule 25 mcg PO DAILY cyanocobalamin (vitamin B-12) 1,000 mcg capsule 1,000 mcg PO DAILY Stand Alone Forms: Work/School Release Interventions: ED Discharge Assessment Last Done: 06/18/25 06:21 Discharge Date/Time: 06/18/25 06:24 Print Language: Mauritanian
[2025-06-18 06:21] VITALS: BP 120/75; PULSE 85; RESP 16; TEMP 36.2; O2SAT 100
== END 2025-06-18 06:24 | disposition home or self-care (01) ==
PROVIDERS: Emergency Provider Emergency Medicine
DX: R10.2 Pelvic and perineal pain (principal)
CPT/HCPCS: 36415; 74177; 80053; 81003; 81025; 83690; 85025; 96361; 96374; 96375; 99284; 99285; J1885; J2405; J7120; Q9967

== ENCOUNTER → 2025-06-18 04:33 | Outpatient (BNV) | payer MEDICAID, SELFPAY | PROVIDERS: Emergency Provider Emergency Medicine; Visit Provider Radiology Vascular & Interventional Radiology | DX: R10.31 Right lower quadrant pain (principal); N85.8 Other specified noninflammatory disorders of uterus | CPT/HCPCS: 74177 ==

== ENCOUNTER 2025-08-26 06:06 | Emergency (ER) | payer MEDICAID, SELFPAY ==
--- NOTE | ~2025-08-26 | CT_ITS ---
CLINICAL HISTORY: abd pain R sided CT abdomen and pelvis with contrast Comparison: CT/REG/SR - CT ABDOMEN PELVIS W IV CON - 06/18/25 04:43 EDT Findings: No consolidation or effusion. There are a couple of small splenic cysts. Otherwise unremarkable gallbladder and solid organs. No urolithiasis. There is moderate fecal retention within the colon. There is no colitis or bowel obstruction. There is a small amount of pelvic free fluid. The uterus and bilateral ovaries are unremarkable. The appendix is normal. The bones are intact. IMPRESSION: 1. There is a small amount of pelvic free fluid. 2. There is moderate fecal retention within the colon. This document has been electronically signed by: Viaeny Recinos MD on 08/26/2025 13:17:30
[2025-08-26 06:15] VITALS: BP 124/74; PULSE 74; O2SAT 94
[2025-08-26 06:18] VITALS: BP 126/59; PULSE 63; RESP 16; TEMP 36.9; O2SAT 96
[2025-08-26 06:20] VITALS: BMI 22.3
[2025-08-26 06:40] LABS: Hematocrit 36.4 % (37.0-47.0); Hemoglobin 12.1 g/dl (12.0-16.0); Imm Gran Abs Auto 0.04 X10*3/uL (0.00-0.03); Imm Gran Pct Auto 0.4 % (0.0-0.4); Lymphocytes Absolute Auto 1.1 X10*3/uL (1.2-4.9); MANUAL DIFF FLAG NO; Mean Corpuscular HGB Conc 33.2 g/dl (31.0-35.0); Mean Corpuscular Hemoglobin 30.3 pg (27.0-33.0); Mean Corpuscular Volume 91.0 fL (80.0-98.0); NRBC Abs Auto 0.000 X10*3/uL (0.0-0.012); NRBC Pct Auto 0.0 /100WBC (0.0-0.2); Platelet Count 207 X10*3/uL (160-400); Red Blood Count 4.00 X10*6/uL (4.20-5.50); White Blood Count 10.6 X10*3/uL (4.8-10.8)
--- OUTSIDE RECORDS SUMMARY | 2025-08-26 06:43 | XMS_ITS | Encounter Summary ---
Author Organization [employer] Address [address] [place] [address] Care Team Providers Care Sourcing Consultant Name Role Phone [facility] Primary Care Provider [phone] Reason for Visit * Reason Comments Med Refill Encounter Details Date Type Department Care Team ([facility] st Contact Info) Description 09/11/2024 Refill [facility] [address] [place] [address] [facility] [address] [place] [address] Social History Tobacco Use Types Packs/Day Years [...] documented as of this encounter Care Teams Sourcing Consultant Relationship Specialty Start Date End Date Remedios Hercules FNP [address] [place] [id number] PCP - General Family Medicine 05/24/22 documented as of this encounter
--- OUTSIDE RECORDS SUMMARY | 2025-08-26 06:43 | XMS_ITS | Encounter Summary ---
Author Organization [employer] Address [address] [facility] [address] [place] [address] Care Team Providers Care Chief Electrician Name Role Phone [place] [facility] Primary Care Provider [phone] Reason for Visit * Reason Onset Date Comments Nurse Triage 2024 Encounter Details Date Type Department Care Team ([facility] st Contact Info) Description 2024 Telephone [facility] [address] [place] [address] [facility], [facility] [address] [place] [address] Nurse Triage Social History Tobacco Use Types [...] PM EST Call returned to [facility] to triage below. Reports having intermittent back [...] Time Provider Department Center 11/29/2024 11:00 AM [facility] Insurance verified as active per Real Time Eligibility in [facility]. Video visit offer not recorded Positive Triage [...] caller accepted this outcome. Contact pt at [phone] documented in this encounter Plan of Treatment Not on file documented as of this encounter Visit Diagnoses Not on filedocumented in this encounter Additional Health Concerns Assessment Noted Time PHQ-9 Depression Total Score: 0 11/12/19 23 11:34 AM EST documented as of this encounter Care Teams Chief Electrician Relationship Specialty Start Date End Date Remedios Hercules FNP [address] [place] [id number] PCP - General Family Medicine 05/24/22 documented as of this encounter
--- OUTSIDE RECORDS SUMMARY | 2025-08-26 06:43 | XMS_ITS | Clinical Summary ---
Author Organization [facility] Address [address] [facility] [address] [place] [address] Care Team Providers Care Radio Division Captain Name Role Phone Remedios Hercules CONVENTIONS ASSISTANT Primary Care Provider [phone] Allergies Active Allergy Reactions Criticality Noted Date [...] Encounters Date Type Department Care Team Description 06/18/2025 Orders Only [facility] External Provider, [facility] from Last 3 Months Immunizations Immunization Administration [...] Years (1 of 2 - PCV) 11/28/2011 Depression Screening 11/12/2023 11/12/2022, 11/12/19 SDOH Screening 11/12/2023 11/12/2022 COVID-19 Vaccine ( season) 2025 Influenza Vaccine (#1) 2025 11/25/2017, 2006 Tobacco Screening 11/29/2025 11/29/2024 DTaP/Tdap/Td Vaccines (8 - Td or Tdap) 06/08/2026 06/08/2016, 04/20/2014, 01/29/2006, Additional history exists Cervical Cancer Screening 02/04/2028 HPV/Cotest 02/04/2028 02/03/2023 Pap Smear 02/04/2028 02/03/2023 Zoster Vaccines (1 of 2) 2042 RSV [...] Procedure Name Priority Date/Time Associated Diagnosis Comments CT ABDOMEN PELVIS W CONTRAST Routine 06/18/2025 5:32 AM EDT LIPASE Routine 06/18/2025 2:54 AM EDT COMPREHENSIVE METABOLIC PANEL Routine 06/18/2025 2:54 AM EDT HCG, QL, URINE Routine 06/18/2025 2:54 AM EDT URINALYSIS WITH REFLEX MICROSCOPIC Routine 06/18/2025 2:54 AM EDT CBC WITH AUTO DIFFERENTIAL Routine 06/18/2025 2:54 AM EDT HM PAP/HPV Routine 02/03/2023 ZZZ HISTORICAL HEPATITIS C AB W/REFL TO HCV RNA, QN, PCR Routine 01/26/2022 12:00 AM EDT HIV 1/2 ANTIGEN/ANTIBODY, FOURTH GENERATION W/RFL Routine 01/26/2022 12:00 AM EDT from Last 3 Months or Most Recently Relevant to Health Maintenance Results * CT Abdomen Pelvis w/ Contrast (06/18/2025 5:32 AM EDT) Anatomical Region Laterality Modality Body, Pelvis, Abdomen Computed T omography 06/18/2025 5:32 AM EDT Narrative 06/18/2025 5:35 AM EDT [place] [address] CT Scan Report Signed Patient: Lily Arrieta MR#: [id number] : 1990 Acct:[id number] Age/Sex: 34 / F ADM Date: 06/18/25 Loc: .ED Attending Dr: Ordering Physician: Alia Dudley DO Date of Service: 06/18/25 Procedure(s): CT abdomen pelvis w IV con Accession Number(s): [id number] cc: Alia Dudley DO; [facility] Report Number: [id number]: Total DLP = 375.00 mGy-cm Reason for Exam: RLQ pain CLINICAL HISTORY: RLQ pain CT abdomen and pelvis with contrast Comparison: None provided Findings: No consolidation or effusion. The liver, gallbladder, spleen, adrenal glands and pancreas are unremarkable. Kidneys, ureters and bladder are normal. The appendix is within normal limits. Fecal retention throughout the colon. No bowel obstruction or free air. Reference coronal image fifty-eight and sagittal 54, there is a low-density region along the inferior uterine body. Adnexa demonstrate no definite acute process. No acute osseous finding. Impression: The appendix appears within normal limits. Irregular low-density along the inferior uterine body as detailed, nonspecific. Fibroid or adenomyosis possible. This document has been electronically signed by: Emmanuel English MD on 06/18/2025 05:32:58 Dictated By: Emmanuel English MD Signed By: <Electronically signed by Emmanuel English MD in OV> 06/18/25533 DD/ 1 TD/TT: 06/18/25531 Ship Rigger Apprentice: Procedure Note Donotuseinterpreter, Image - 06/18/[address] [place] [address] [address] Scan Report Signed Patient: Willi Arrieta#: [id number] : 1990Acct:[id number] Age/Sex: 34 / FADM Date: 06/18/25 Loc: HO.ED Attending Dr: Ordering Physician: Alia Dudley DO Date of Service: 06/18/25 Procedure(s): CT abdomen pelvis w IV con Accession Number(s): [id number] cc: Alia Dudley DO; [facility] Report Number: [id number]: Total DLP = 375.00 mGy-cm Reason for Exam: RLQ pain CLINICAL HISTORY: RLQ pain CT abdomen and pelvis with contrast Comparison: None provided Findings: No consolidation or effusion. The liver, gallbladder, spleen, adrenal glands and pancreas are unremarkable. Kidneys, ureters and bladder are normal. The appendix is within normal limits. Fecal retention throughout the colon. No bowel obstruction or free air. Reference coronal image fifty-eight and sagittal 54, there is a low-density region along the inferior uterine body. Adnexa demonstrate no definite acute process. No acute osseous finding. Impression: The appendix appears within normal limits. Irregular low-density along the inferior uterine body as detailed, nonspecific. Fibroid or adenomyosis possible. This document has been electronically signed by: Emmanuel English MD on 06/18/2025 05:32:58 Dictated By: Emmanuel English MD Signed By: <Electronically signed by Emmanuel English MD in OV> 06/18/2534 DD/ 1 TD/TT: 06/18/25531 Ship Rigger Apprentice: [facility] External Provider IMG CT PROCEDURES Edited Result - Final * (ABNORMAL) CBC auto differential (06/18/2025 2:54 AM EDT) White Blood Count 10.1 4.8 - 10.8 X10*3/uL [facility] Red Blood Count 3.81(L) 4.20 - 5.50 X10*6/uL [facility] Hemoglobin 11.7(L) 12.0 - 16.0 g/dl [facility] Hematocrit 34.6(L) 37.0 - 47.0 % [facility] Mean Corpuscular Volume 90.8 80.0 - 98.0 fL [facility] Mean Corpuscular Hemoglobin 30.7 27.0 - 33.0 pg [facility] Mean Corpuscular HGB Conc 33.8 31.0 - 35.0 g/dl [facility] Red Cell Distribution Width 13.2 11.0 - 16.0 % [facility] Platelet Count 202 160 - 400 X10*3/uL [facility] Mean Platelet Volume 9.8 9.4 - 12.3 fL [facility] Neutrophils Percent Auto 59.8 45 - 73 % [facility] Imm Gran Pct Auto 0.2 0.0 - 0.4 % [facility] Lymphocytes Percent Auto 33.9 20 - 40 % [facility] Monocytes Percent Auto 4.7 2 - 11 % [facility] Eosinophils Percent Auto 1.1 0 - 4 % [facility] Basophils Percent Auto 0.3 0 - 2 % [facility] NRBC Pct Auto 0.0 0.0 - 0.2 /100WBC [facility] Neutrophils Absolute Auto 6.0 2.0 - 8.3 x10*3/uL [facility] Imm Gran Abs Auto 0.02 0.00 - 0.03 X10*3/uL [facility] Lymphocytes Absolute Auto 3.4 1.2 - 4.9 X10*3/uL [facility] Monocytes Absolute Auto 0.5 0.1 - 1.2 X10*3/uL [facility] Eosinophils Absolute Auto 0.1 0.0 - 0.4 X10*3/uL [facility] Basophils Absolute Auto 0.0 0.0 - 0.2 X10*3/uL [facility] NRBC Abs Auto 0.000 0.0 - 0.012 X10*3/uL [facility] 06/18/2025 2:54 AM EDT 06/18/2025 2:59 AM EDT Generic External Data Provider LAB BLOOD ORDERAB LES Final Result Performing Organization Address [facility]/ZIP Co de Phone Number [facility] [address] [place] [phone] * HCG, Qualitative, Urine (06/18/2025 2:54 AM EDT) Urine NEGATIVE NEGATIVE [facility] Comment:This test was develo ped to detect early . Falsenegative results may occur after the 5th - 7th week ofpregnancy when using this test method. If clinicallyindicated, consider a serum hCG. 06/18/2025 2:54 AM EDT 06/18/2025 2:59 AM EDT us Generic External Data Provider LAB URINE ORDERAB LES Final Result Performing Organization Address City/[facility]/ZIP Co de Phone Number [facility] [address] [place] [phone] * (ABNORMAL) Urinalysis w/reflex microscopic (06/18/2025 2:54 AM EDT) Color Urine Yellow [facility] Appearance Urine Clear [facility] PH 6.0 5.0 - 9.0 [facility] Glucose Urine UA Negative Negative mg/dL [facility] Urine Blood Negative Negative [facility] Specific [place] - Urine >=1.030(H) 1.005 - 1.025 [facility] Urine Protein Negative Neg-Trace mg/dL [facility] Urine Ketones Negative Negative mg/dL [facility] Nitrite Urine Negative Negative [facility] Leukocyte Esterase Urine Negative Negative [facility] 06/18/2025 2:54 AM EDT 06/18/2025 2:59 AM EDT Narrative [facility] - 06/18/2025 3:04 AM EDT [id number], Clean Catch Generic External Data Provider LAB URINE ORDERAB LES Final Result Performing Organization Address [facility]/ZIP Co de Phone Number [facility] [address] [place] [phone] * Lipase (06/18/2025 2:54 AM EDT) Lipase 26 8 - 78 U/L [facility] 06/18/2025 2:54 AM EDT 06/18/2025 2:59 AM EDT Generic External Data Provider LAB BLOOD ORDERAB LES Final Result Performing Organization Address [facility] de Phone Number [facility] [address] [place] [phone] * (ABNORMAL) Comprehensive Metabolic Panel (06/18/2025 2:54 AM EDT) Sodium 141 135 - 145 mmol/L [facility] Potassium 3.9 3.3 - 5.1 mmol/L [facility] Chloride 109(H) 96 - 108 mmol/L [facility] Carbon Dioxide 29 22 - 29 mmol/L [facility] Anion Gap 7(L) 12 - 20 [facility] Urea Nitrogen (BUN) 20(H) 9 - 16 mg/dL [facility] Creatinine, Serum 0.72 0.5 - 1.4 mg/dL [facility] Creatinine Clr Calc Pharmacy 96.8 [facility] Comment:Provided height and weight: 162.56 cm,56.8 kg.eGFR (calculated from the MDRD study equation) and eCrCl(calculated from the Cockcroft-Gault equation) are based ondifferent parameters and may not yield comparable results.If eCrCl result is absurd, please check patient'sheight/weight. Estimated Glomerular Filt Rate >60 [facility] Comment:Chronic Kidney Disea se: Estimated GFR < 60 mL/min/1.15w6Bknasr Kidney Disease: Estimated GFR < 15 mL/min/1.73m2 Glucose 99 60 - 115 mg/dL [facility] Calcium 8.9 8.4 - 10.2 mg/dL [facility] Bilirubin, Total 0.2 0.0 - 1.0 mg/dL [facility] Aspartate Amino Transferase 17 5 - 31 U/L [facility] Alanine Aminotransferase 15 0 - 31 U/L [facility] Total Protein 6.6 6.5 - 8.0 g/dL [facility] Albumin Level 4.2 3.5 - 5.0 g/dL [facility] Alkaline Phosphatase 63 39 - 117 U/L [facility] 06/18/2025 2:54 AM EDT 06/18/2025 2:59 AM EDT Generic External Data Provider LAB BLOOD ORDERAB LES Final Result [facility] [address] [place] [phone] * HM PAP/HPV (02/03/2023) Pap Smear 1. NILM 1. NILM HPV Not Detected Undetected, Indeterminat e, Quantitative , Not Detected Historical Provider HEALTH MAINTENANCE Final Result * HEPATITIS C AB W/REFL TO HCV RNA, QN, PCR (01/26/2022 12:00 AM EDT) HEPATITIS C ANTIBODY NON-REACT APRIL NON-REACT APRIL [facility] INDEX 0.01 <1.00 [facility] Comment: HCV antibody was non-reactive. There is no laboratory evidence of HCV infection. In most cases, no further action is required. However, if recent HCV exposure is suspected, a test for HCV RNA (test code 30983) is suggested. For additional information please refer to http://[email or web address]/faq/JRF06w0 (This link is being provided for informational/ educational purposes only.) 01/26/2022 [facility] HISTORICAL/NON ORDERABLE LABS Final Result Performing Organization Address [facility]/State/[facility] Co de Phone Number [facility] [address] [place] [address], * HIV 1/2 ANTIGEN/ANTIBODY,FOURTH GENERATION W/RFL (01/26/2022 12:00 AM EDT) HIV-1/2 ANTIGEN AND ANTIBODIES, 4TH GENERATION W/ REFLEX NON-REACT APRIL NON-REACT APRIL [facility] Comment: HIV-1 antigen and HIV-1/HIV-2 [...] purpose. For additional information please refer to http://[email or web address]/faq/OII596 (This link is being provided for informational/ educational purposes only.) The performance of this assay has not been clinically validated in patients less than 2 years old. 01/26/2022 [facility] LAB BLOOD ORDERABLES Final Res ult [facility] [address] from Last 3 Months or Most Recently Relevant to Health Maintenance Insurance C3 * Guarantor: Larry Santiago Philipford Account Type Relation to Patient Date of Phone Billing Address Personal/Family Self [address] Care Teams Radio Division Captain Relationship Specialty Start Date End Date Remedios Hercules FNP [address] [place] [phone] PCP - General Family Medicine 05/24/22
--- OUTSIDE RECORDS SUMMARY | 2025-08-26 06:43 | XMS_ITS | Encounter Summary ---
Author Organization [employer] Address [address] [place] [address] Care Team Providers Care Forklift Driver Name Role Phone [place] [facility] Primary Care Provider [phone] Encounter Details Date Type Department Care Team ([facility] st Contact Info) Description 03/10/2024 Telephone [facility] [address] [place], [place] [phone] [place] [facility] [address] [place] [address] Social History Tobacco Use Types Packs/Day Years [...] documented as of this encounter Care Teams Forklift Driver Relationship Specialty Start Date End Date Remedios Hercules FNP [address] [place] [phone] PCP - General Family Medicine 05/24/22 documented as of this encounter
[2025-08-26 07:03] LABS: Alanine Aminotransferase 14 U/L (0-31); Albumin Level 4.4 g/dL (3.5-5.0); Alkaline Phosphatase 51 U/L (39-117); Anion Gap 12 (12-20); Aspartate Amino Transferase 18 U/L (5-31); Blood Urea Nitrogen 13 mg/dL (9-16); Calcium 8.8 mg/dL (8.4-10.2); Carbon Dioxide 24 mmol/L (22-29); Chloride 108 mmol/L (96-108); Creatinine Clr Calc Pharmacy 116.2; Estimated Glomerular Filt Rate > 60; Lipase 18 U/L (8-78); Potassium 3.9 mmol/L (3.3-5.1); Sodium 140 mmol/L (135-145); Total Protein 6.9 g/dL (6.5-8.0)
[2025-08-26 08:42] LABS: Resp Syncy Virus RNA Qual PCR NEGATIVE (Negative); SARS COV2 PCR INHOUSE NEGATIVE (Negative)
--- NOTE | 2025-08-26 08:52 | ED_ITS ---
HPI - General Adult General Chief complaint: Abdominal Pain Stated complaint: ABD PAIN RAD TO UP L BACK Time Seen by Provider: 08/26/25 07:15 Source: patient and EMS Mode of arrival: EMS Limitations: no limitations History of Present Illness ED Provider: ROSEMARIE Pollock HPI narrative: Chief Complaint: ?I?m in a lot of pain in my belly.? History of Present Illness: The patient is an 89-year-old female presenting to the ED for severe abdominal pain that awoke her at approximately 0200 today. The pain initially localized to one area of the abdomen (patient pointed to a right-sided spot) but has since become diffuse and ?all over? her belly. She also noted earlier discomfort ?around my neck, my side on my back,? though the current primary pain is abdominal. She rates this episode as significantly worse and more persistent than two prior events that prompted ED visits, for which no diagnosis was identified. Associated symptoms: ? Marked nausea without vomiting. ? Chills lasting about one hour prior to arrival. ? Back discomfort. She denies chest pain, shortness of breath, and urinary symptoms. Last bowel movement not specifically discussed. She reports normal urination today. Appendix and gallbladder remain intact. Related Data Home Medications ?Medication ?Instructions ?Recorded ?Confirmed cholecalciferol (vitamin D3) 25 25 mcg PO DAILY mcg (1,000 unit) capsule cyanocobalamin (vitamin B-12) 1,000 mcg PO DAILY 02/03 1,000 mcg capsule Previous Rx's ?Medication ?Instructions ?Recorded ibuprofen 600 mg tablet 600 mg PO Q8H PRN fever or p ain 08/17/22 #20 tabs dicyclomine 20 mg tablet 20 mg PO TID #10 tabs ondansetron 4 mg disintegrating 4 mg PO Q8H PRN nausea and 06/18/25 tablet vomiting #10 tabs ketorolac 10 mg tablet 10 mg PO TID PRN pain 5 days #15 08/26/25 tabs ondansetron 4 mg disintegrating 4 mg PO Q6H PRN nausea and 08/26/25 tablet vomiting #14 tabs Allergies Allergy/AdvReac Type Severity Reaction Status Date / Time shrimp (SHRIMP) Allergy Intermediate SWELLING Verified 08/26/25 06:30 amoxicillin (AMOXICILLIN) Allergy Unknown HIVES Verified 08/26/25 06:30 Penicillins (PENICILLINS) Allergy Unknown HIVES Verified 08/26/25 06:30 Review of Systems 2 Review of Systems: ? Constitutional: chills ~1 hour; no fever reported. ? Gastrointestinal: diffuse abdominal pain; nausea; no vomiting. ? Musculoskeletal: back pain. ? Cardiovascular: denies chest pain. ? Respiratory: denies shortness of breath. ? Genitourinary: urinating normally. Yes all other systems are reviewed and are negative PMFSH Past Medical History Attestation statement: The following information was validated with the patient. 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 Abdomen: Diffusely tender/uncomfortable to palpation; no specific focal peritoneal signs elicited during brief exam. CV: RRR Lungs: CTA Neuro: A&O X 4 Strength: 5/5 UE and LE . Vital Signs: Vital Signs - 24 hr 08/26/25 06:18 08/26/25 11:13 08/26/25 12:43 Temperature 98.4 F 98.1 F 98.1 F Pulse Rate 63 70 82 Respiratory Rate 16 16 16 Blood Pressure 126/59 L 102/62 118/67 Pulse Oximetry 96 99 98 Oxygen Delivery Method Room Air Room Air BMI result Body Mass Index 22.3 Course Reevaluation(s) Reevaluation #1: CBC with no acute findings needing intervention. Chemistry unremarkable. Lipase normal. Beta hCG negative patient is still reporting discomfort and some nausea will order CT abdomen. Time: 10:33 Reevaluation #2: CT of the abdomen is still pending patient states she is feeling better. Time: 11:30 Reevaluation #3: Initially when I tried to discharge her she had pain however after treatment she states she feels a lot better. Educated patient on diagnosis and treatment plan, answered all question, patient verbalizes understanding. At this time patient will be discharged home, advised to return with new or worsening symptoms. Educated on worrisome signs and symptoms and when to return. At this time I feel comfortable discharge home. Time: 13:35 Medications Administered Discontinued Medications Generic Name Dose Route Start Last Admin Trade Name Rivera PRN Reason Stop Dose Admin Iohexol 85 ml 08/26/25 10:40 08/26/25 10:42 Iohexol 350 Mg/Ml 100 Ml Infus..Btl IV 08/26/25 10:41 85 ml ONCE ONE Administration Ketorolac Tromethamine 30 mg 08/26/25 07:39 08/26/25 07:45 Ketorolac Tromethamine 15 Mg/Ml Vial IVPUSH 08/26/25 07:40 30 mg ONCE ONE Administration Morphine Sulfate 4 mg 08/26/25 12:38 08/26/25 12:43 Morphine Sulfate 4 Mg/Ml Cartridge IVPUSH 08/26/25 12:39 4 mg ONCE ONE Administration Protocol Ondansetron HCl 4 mg 08/26/25 07:39 08/26/25 07:46 Ondansetron Hcl 4 Mg/2 Ml Vial IVPUSH 08/26/25 07:40 4 mg ONCE ONE Administration Ondansetron HCl 4 mg 08/26/25 12:39 08/26/25 12:43 Ondansetron Odt 4 Mg Tab.Rapdis TRANSLINGU 08/26/25 12:40 4 mg ONCE ONE Administration Medical Decision Making Medical Decision Making [facility] Narrative: 0854 34-year-old female with acute diffuse abdominal pain, nausea, and chills. Exam notable for diffuse abdominal tenderness. Differential diagnosis includes viral gastroenteritis, viral systemic illness, early inflammatory or obstructive abdominal pathology (e.g., appendicitis, cholecystitis, bowel obstruction), though prior CT on 06/18/2025 was unrevealing. Initial management focuses on symptomatic relief and diagnostic evaluation. Problem #1: Acute abdominal pain Assessment: Severe, diffuse abdominal pain beginning at 0200; worse and more persistent than two prior similar episodes; associated nausea and chills; abdomen diffusely tender. Plan: * Administered IV analgesia. * Obtain urinalysis. * Obtain viral panel (COVID-19, RSV). * Consider CT abdomen/pelvis with IV contrast if pain not improved after initial interventions or if additional concerning findings develop. * Reassess after medications and lab results; broaden work-up as indicated. Problem #2: Nausea Assessment: Significant nausea without emesis, likely secondary to underlying abdominal process. Plan: * Administered IV antiemetic. Follow-up / Disposition: ? Patient to remain in ED for monitoring, symptom control, and completion of laboratory testing. ? Disposition decisions (discharge vs. admission, need for imaging) will be based on clinical course and diagnostic findings. Prior evaluation (per chart review and patient recall): ? ED visit on 06/18/2025 for right lower-quadrant abdominal pain radiating to the mid-abdomen and pelvis; CT abdomen/pelvis with IV contrast showed no appendicitis or acute intra-abdominal pathology. Labs including UA were unremarkable. ? History of ovarian cysts was documented at that prior visit. Differential Diagnosis Differential Diagnoses: The differential diagnosis associated with the presentation includes * Viral gastroenteritis: Acute onset of diffuse abdominal pain, nausea, and chills are consistent with a viral gastrointestinal infection; absence of vomiting does not exclude this diagnosis. * Viral systemic illness: Chills and constitutional symptoms may reflect a viral illness with abdominal manifestations; viral panel pending. * Early appendicitis: Initial right-sided pain and progression to diffuse tenderness could represent early or atypical appendicitis, though prior CT was negative and appendix is intact. * Cholecystitis: Right-sided abdominal pain and nausea may suggest gallbladder pathology; gallbladder is intact and prior imaging did not show acute findings. * Bowel obstruction (mechanical or functional): Elderly patients are at risk; diffuse pain, nausea, and prior episodes raise concern, though no vomiting or distension currently noted and prior CT was unrevealing. * Ovarian pathology (e.g., cysts, torsion): History of ovarian cysts; pelvic pain and diffuse tenderness could be related, though prior imaging did not show acute ovarian pathology. * Urinary tract infection or pyelonephritis: Nausea and abdominal pain may be seen; urinalysis pending, but patient denies urinary symptoms. * Other intra-abdominal infection or inflammation (e.g., diverticulitis): Diffuse pain and tenderness could be due to other inflammatory processes; prior CT did not show diverticulitis. * Medication side effect or metabolic cause: Elderly patients may present atypically; no specific medication or metabolic abnormality identified at this time. Admission/Observation Consideration of admission/observation: Escalation of care including admission/observation considered Lab Data MDM Lab Attestation statement: I reviewed the patient's lab results. 08/26/25 06:35 08/26/25 06:35 Labs: Lab Results 08/26/25 08/26/25 Range/Units 06:35 11:15 WBC 10.6 (4.8-10.8) X10*3/uL RBC 4.00 L (4.20-5.50) X10*6/uL Hgb 12.1 (12.0-16.0) g/dl Hct 36.4 L (37.0-47.0) % MCV 91.0 (80.0-98.0) fL MCH 30.3 (27.0-33.0) pg MCHC 33.2 (31.0-35.0) g/dl RDW 12.6 (11.0-16.0) % Plt Count 207 (160-400) X10*3/uL MPV 10.1 (9.4-12.3) fL Immature Gran % (Auto) 0.4 (0.0-0.4) % Neut % (Auto) 84.2 H (45-73) % Lymph % (Auto) 10.6 L (20-40) % [place] % (Auto) 4.2 (2-11) % Eos % (Auto) 0.3 (0-4) % Baso % (Auto) 0.3 (0-2) % Lymph # (Auto) 1.1 L (1.2-4.9) X10*3/uL [place] # (Auto) 0.4 (0.1-1.2) X10*3/uL Eos # (Auto) 0.0 (0.0-0.4) X10*3/uL Baso # (Auto) 0.0 (0.0-0.2) X10*3/uL Abs Immat Gran (auto) 0.04 H (0.00-0.03) X10*3/uL Absolute Neuts (auto) 8.9 H (2.0-8.3) x10*3/uL Absolute Nucleated RBC 0.000 (0.0-0.012) X10*3/uL Nucleated RBC % (auto) 0.0 (0.0-0.2) /100WBC Sodium 140 (135-145) mmol/L Potassium 3.9 (3.3-5.1) mmol/L Chloride 108 (96-108) mmol/L Carbon Dioxide 24 (22-29) mmol/L Anion Gap 12 (12-20) BUN 13 (9-16) mg/dL Creatinine 0.60 (0.5-1.4) mg/dL Estim Creat Clear Calc 116.2 Estimated GFR > 60 Random Glucose 120 H (60-115) mg/dL Calcium 8.8 (8.4-10.2) mg/dL Total Bilirubin 0.2 (0.0-1.0) mg/dL AST 18 (5-31) U/L ALT 14 (0-31) U/L Alkaline Phosphatase 51 (39-117) U/L Total Protein 6.9 (6.5-8.0) g/dL Albumin 4.4 (3.5-5.0) g/dL Lipase 18 (8-78) U/L Beta HCG, Quant < 2 mIU/mL Urine Color Yellow Urine Appearance Clear Urine pH 6.0 (5.0-9.0) Ur Specific [place] >= 1.030 H (1.005-1.025) Urine Protein Negative (Neg-Trace) mg/dL Urine Glucose (UA) Negative (Negative) mg/dL Urine Ketones Negative (Negative) mg/dL Urine Blood Negative (Negative) Urine Nitrite Negative (Negative) Ur Leukocyte Esterase Negative (Negative) Influenza Type A (PCR) NEGATIVE (Negative) Influenza Type B (PCR) NEGATIVE (Negative) RSV RNA Qual (PCR) NEGATIVE (Negative) SARS-CoV-2 RNA (RT-PCR) NEGATIVE (Negative) Independent Interpretation I performed an independent interpretation of an: CT Scan Radiology Impression Discussion of test interpretation with radiology: I have reviewed the radiologist's reading. External Record Review External record reviewed: Inpatient record, Office record, Outpatient record, Prior outpatient labs, Prior outpatient radiology, Primary care record and Outside ED record Chronic Conditions Patient?s care impacted by: Other Critical Care Time Critical Care Time Critical Care Time: Yes Total Critical Care Time: 35 Attestation: I attest to this time spent taking care of the patient, obtaining history, physical, reviewing labs, imaging, treatment of patients condition +/- specialist/hospitalist consult +/- procedure Discharge Plan Discharge Clinical Impression: Abdominal pain, Nausea & vomiting Patient Disposition: Home, Self-Care Instructions: Acute Nausea and Vomiting (ED), Abdominal Pain (ED) Additional Instructions: Take your medications as prescribed. If you were prescribed antibiotics today, it is important that you take your medication to their entirety, do not skip any doses, do not finish them early. Follow-up with your primary care provider this week. Return to the emergency department with new or worsening symptoms. Such as fevers, chills, chest pain, shortness of breath, nausea, vomiting, dizziness, headache, vision changes, lethargy In case of emergency call 911 Prescriptions: New ketorolac 10 mg tablet 10 mg PO TID PRN (Reason: pain) 5 Days Qty: 15 0RF Rx Instructions: Tolerated IM or IV in department ondansetron 4 mg tablet,disintegrating 4 mg PO Q6H PRN (Reason: nausea and vomiting) Qty: 14 0RF No Action ibuprofen 600 mg tablet 600 mg PO Q8H PRN (Reason: fever or pain) Qty: 20 0RF dicyclomine 20 mg tablet 20 mg PO TID Qty: 10 0RF ondansetron 4 mg tablet,disintegrating 4 mg PO Q8H PRN (Reason: nausea and vomiting) Qty: 10 0RF cholecalciferol (vitamin D3) 25 mcg (1,000 unit) capsule 25 mcg PO DAILY cyanocobalamin (vitamin B-12) 1,000 mcg capsule 1,000 mcg PO DAILY Referrals: Physician,Unknown J [Primary Care Provider, Medical] Print Language: Kyr[place]z
[2025-08-26] MEDS: iohexoL 350 MG/ML 100 ML INFUS..BTL 85 ML IV (10:42)
[2025-08-26 11:13] VITALS: BP 102/62; PULSE 70; RESP 16; TEMP 36.7; O2SAT 99
[2025-08-26 11:22] LABS: Appearance Urine Clear; Glucose Urine UA Negative (Negative); PH 6.0 (5.0-9.0); Specific Gravity - Urine >= 1.030 (1.005-1.025)
[2025-08-26 12:43] VITALS: BP 118/67; PULSE 82; RESP 16; TEMP 36.7; O2SAT 98
[2025-08-26 13:40] VITALS: BP 118/67; PULSE 82; RESP 16; TEMP 36.7; O2SAT 98
== END 2025-08-26 13:45 | disposition home or self-care (01) ==
PROVIDERS: Physician Assistant; Emergency Provider Emergency Medicine Emergency Medical Services
DX: R10.9 Unspecified abdominal pain (principal); R11.2 Nausea with vomiting, unspecified; Z88.0 Allergy status to penicillin; Z91.013 Allergy to seafood
CPT/HCPCS: 74177; 80053; 81003; 83690; 84702; 85025; 87637; 96374; 96375; 99284; 99285; J1885; J2270; J2405; Q9967

== ENCOUNTER → 2025-08-26 08:56 | Outpatient (BNV) | payer MEDICAID, SELFPAY | PROVIDERS: Emergency Provider Emergency Medicine Emergency Medical Services; Visit Provider Radiology Diagnostic Radiology | DX: K59.00 Constipation, unspecified (principal) | CPT/HCPCS: 74177 ==